=== PATIENT | male | born 1955 | race Caucasian/White ===

== ENCOUNTER 2023-11-11 08:43 | Outpatient (RCR) | payer MEDICARE, OTHER, SELFPAY | END 2023-11-11 23:59 | disposition home or self-care (01) | LOC: CRHB 08:43 | PROVIDERS: ATTENDING PHYSICIAN Internal Medicine Cardiovascular Disease | DX: I25.10 Atherosclerotic heart disease of native coronary artery without angina pectoris (principal); Z95.5 Presence of coronary angioplasty implant and graft | CPT/HCPCS: G0422; G0423 ==

== ENCOUNTER 2024-02-04 14:28 | Inpatient (IN) | payer MEDICARE, OTHER, SELFPAY ==
[2024-02-04] VITALS (14 sets, daily range): BP systolic 103–192; BP diastolic 64–120; BMI 29.4
--- NOTE | 2024-02-04 11:41 | PTCARENOTE ---
Pt given 4 ASA 81 mg po in Cardiac Services prior to being transferred to ED(documented in Cardiac Services account). Kimberly Manriquez RN
--- NOTE | 2024-02-04 11:47 | ED.GENMED ---
History of Present Illness
General
Chief Complaint: Chest Pain
Source: patient and physician (Dr. Montenegro, cardiology)
Exam Limitations: none
Time Seen by Provider: 02/04/24 11:36
Nursing documentation reviewed up to this point in time: agreed with
Travel History
Have you had any contact with someone who has COVID-19?: No
Do you have any symptoms of coronavirus? Fever > 100 degrees, chills, cough, shortness of breath, sore throat, loss of taste or smell, muscle aches, or headache?: No
History of Present Illness
History of Present Illness:
68-year-old male with chest pain during treadmill test. He was sent by Dr. Montenegro, gold leaf roller to be admitted and plan for likely cardiac catheterization.
Past History
Past History
ED Past Medical History: CAD, COPD, CVA (History of TIA), GERD, HTN, Hypercholesterolemia, NIDDM and Other (Peripheral arterial disease)
ED Past Surgical History: Cardiac (CABG 2011, PTCA with stent January 2016) and Other (Bilateral carotid stenting 2011, left carotid artery stent 2020, hernia repair, retinal tears bilaterally 2018)
Social History
Tobacco: Former smoker
Alcohol: Daily
Drug: None
Personal:
Living: with family
Employment: Retired
Family History
Family History: Other (reviewed and noncontributory)
Review of Systems
Review of Systems
Allergies reviewed?: Yes
All Other Systems: Not applicable
Constitutional: Reports no symptoms
EENT: Reports no symptoms
Respiratory: Reports no symptoms
Cardiac: Reports chest pain
ABD/GI: Reports no symptoms
: Reports no symptoms
Musculoskeletal: Reports no symptoms
Skin: Reports no symptoms
Neurological: Reports no symptoms
Endocrine: Reports no symptoms
Hematologic/Lymphatic: Reports no symptoms
Psychiatric: Reports no symptoms
Phy Exam
Physical Exam
Physical Exam:
Physical Exam
General: no apparent distress, not acutely ill
Neck: supple. no meningeal signs. normal posterior pharynx
Heart: s1/s2 regular rate and rhythm, no murmur. equal radial
pulses.
HEENT: Pupils equal round reactive to light, EOMI
Lungs: no acute respiratory distress. clear bilaterally
Abdomen: normal bowel sounds. not tender. no CVAT
Neuro: alert and oriented. no focal neurological deficits cranial nerves II through XII intact
Skin: no rash
Psychiatric: well kept. interactive and cooperative
Extremities: no edema. no calf tenderness. negative homans. good distal pulses
Scores
Heart Score for Chest Pain Patients
STEMI patient?: No
History: Highly Suspicious
ECG: Nonspecific Repolarization
Age: >/= 65 years
Risk Factors: >/= 3 Risk Factors or History of CAD
Troponin: </= Normal Limit
Heart Score for Chest Pain Patients: 7
Heart Score Risk: 72.7 % MACE over next 6 weeks
Course
Orders/Labs/Results
Orders:
Orders
02/04/24 11:31
Electrocardiogram (*1) Stat
Reason for Study: Chest Pain
02/04/24 12:10
Complete Blood Count/With Diff Urgent
Comprehensive Metabolic Panel Urgent
Prothrombin Time Urgent
Troponin I Urgent
02/04/24 12:17
PTT Urgent
Comment: Obtain baseline before beginning heparin infusion if not already collected
Heparin 4,000 units IV NOW STA
Nursing to Place Non Medication Order As Directed
Physician Order: PTT 6 hours after initial start of Heparin infusion
02/04/24 12:30
Heparin 40362 Units/250 ml 25,000 units in 250 ml IV PER PROTOCOL
Weight to be used for heparin protocol in kilograms (kg):: 95.5
Protocol:: Cardiac Tx/Acute Coronary
PTT Goal Range to be used:: PTT 73 to 111 seconds
Order type:: Initial
INITIAL Infusion Dose (UNITS/KG/hr) & then follow protocol:: 12 units/kg/hr
Infusion Dose in UNITS/hr & then follow protocol (UNITS/hr):: 1,000
INFUSION RATE in mL/hr & then follow protocol (mL/hr):: 10
PTT less than or equal to 64 seconds:: Increase rate by 200 units/hr (+ 2 mL/hr)
PTT 64.1 to 72.9 seconds:: Increase rate by 100 units/hr (+ 1 mL/hr)
PTT 73 to 111 seconds:: Target Range. No change in rate.
PTT 111.1 to 130.9 seconds:: Decrease rate by 100 units/hr (- 1 mL/hr)
PTT 131 to 199.9 seconds:: HOLD for 1 hr. Then decrease rate by 200 units/hr (- 2 mL/hr)
PTT greater than or equal to 200 seconds:: HOLD for 2 hrs & Notify Provider. Then decrease by 200 units/hr (-
2 mL/hr)
Lab follow-up:: Each change, PTT q6h until 2 consecutive are therapeutic. Then PTT
daily.
02/04/24 12:42
Add On- LAB Urgent
Tests Added?: ptt
Abnormal Lab Results
02/04/24
12:10
RBC 4.04 L 10^6/uL
(4.70-6.10)
Hgb 12.6 L g/dL
(13.0-18.0)
Hct 36.2 L %
(39.0-52.0)
MCH 31.2 H pg
(27.0-31.0)
Absolute Monos (auto) 0.8 H 10^3/uL
(0.1-0.6)
Monocytes % 10.6 H %
(1.7-9.3)
Sodium 128 L mmol/L
(135-145)
Chloride 93 L mmol/L
(98-107)
BUN 26 H mg/dl
(9-20)
Creatinine 1.7 H mg/dL
(0.7-1.3)
Glucose 175 H mg/dl
(70-99)
02/04/24 12:10
02/04/24 12:10
Vital Signs
Initial and Last Documented VS:
Initial Vital Signs
Temp Pulse Resp BP Pulse Ox
98.1 F 65 18 192/77 98
02/04/24 11:29 02/04/24 11:29 02/04/24 11:29 02/04/24 11:29 02/04/24 11:29
Last Documented Vital Signs
Temp Pulse Resp BP Pulse Ox
98.1 F 65 18 192/77 99
02/04/24 11:29 02/04/24 11:29 02/04/24 11:29 02/04/24 11:29 02/04/24 12:06
MDM/Problems Addressed
Differential Diagnosis Includes:
ACS, unstable angina
MDM/Problems Addressed:
68-year-old male with unstable angina. Aspirin 324 given by cardiology office, heparin drip. Dr. Hernandez and hospitalist aware for admission.
Chronic conditions affecting care: CAD
Acute Exacerbation and/or Progression of Chronic Illness: CAD
*Pulse Oximetry
Patient hypoxic: no
*EKG
Interpreted by ED Provider?: Yes
EKG Intrepretation Date: 02/04/24
EKG Intrepretation Time: 11:34
Interpretation: abnormal
Comparison EKG: no changes
Heart Rate: 65
Rate: normal
Rhythm: sinus
Rembrandt: left axis deviation
Interval: normal interval
QRS Pattern: normal QRS
Ischemia: non-specific ST changes
*Cot Assembler Interpretation
Rate: normal
Interpretation: normal
Heart Rate: 66
Rhythm: sinus
*Critical Care Note
Total Time (30-74mins, 75-104mins- exclusive of procedures): 30
comment:
Critical care statement: A total of 30 minutes of critical care time was provided for this patient. This includes management of unstable vital signs, evaluation of the patient at bedside, reviewing the patient's pertinent medical records, discussion
with consultants, review of old EKGs and review of pertinent medical records. This time with separate from time utilized to perform the aforementioned documented procedures
Data Reviewed
Review of Other/Old Records Reveals: Operative Reports (Cardiac catheterization 05/22/[address] Stuart, severe [place] triple-vessel CAD, stent of in-stent restenosis of mid RCA)
Source: records
Patient Management
Social determinants of health affecting care: Living situation
Discussion with other providers: Hospitalist and Treasury Specialist (Dr. Montenegro and Dr. Hernandez cardiology)
Escalation/DeEscalation of care consider admission/obs:
Admit indicated
ED Attending Note
-
Portions of this chart may have been created with voice recognition software.� Occasional wrong word or��sound alike� substitutions may have occurred due to the inherent limitations of voice recognition software.
Discharge Plan
Departure
Patient Disposition: Admit
Date of Disposition: 02/04/24
Time of Disposition: 12:38
Admit to: IVU
Presentation/result/management discussed w/ accepting MD/DO: Hospitalist
Condition: Good
Discharge Problem:
Unstable angina
Prescriptions:
No Action
pantoprazole [Protonix] 40 MG tablet,delayed release (/EC)
40 mg PO DAILY
aspirin [Bean Chewable Aspirin] 81 MG tablet,chewable
81 mg PO DAILY
fluoxetine 20 MG capsule
20 mg PO DAILY
nitroglycerin 0.4 MG tablet, sublingual
0.4 mg sublingual [id number] PRN (Reason: chest pain) Qty: 75 3RF
Jardiance 10 mg Tablet
10 mg PO DAILY Qty: 30 2RF
Hold Instructions: Resume on 05/25/23.
multivitamin Tablet
1 tab PO DAILY
isosorbide mononitrate 120 mg tablet extended release 24 hr
120 mg PO DAILY
losartan-hydrochlorothiazide 100-25 mg tablet
1 tab PO DAILY
Hold Instructions: Resume on 05/25/23.
amlodipine 10 mg tablet
10 mg PO DAILY
rosuvastatin 20 mg tablet
20 mg PO QPM
metformin 1,000 MG tablet
1,000 mg PO BID@0800,1700
Rx Instructions:
resume thursday evening
albuterol sulfate [ProAir HFA] 90 MCG/PUFF HFA aerosol inhaler
2 puff inhalation R Q6HPRN PRN (Reason: sob/wheezing)
metoprolol succinate 25 mg Tablet Extended Release 24 Hr
12.5 mg PO DAILY Qty: 30 1RF
amoxicillin 500 mg Capsule
500 mg PO TID
Patient Comments:
patient black pickler 01/30/24 for 7 days
gabapentin 600 mg Tablet
600 mg PO DAILYPRN PRN (Reason: mild pain)
sucralfate [Carafate] 1 gram Tablet
1 g PO BID
glimepiride 2 mg Tablet
2 mg PO QPM
acetaminophen 650 mg Tablet Extended Release
650 mg PO QIDPRN PRN (Reason: mild pain)
insulin glargine [Basaglar KwikPen U-100 Insulin] 100 unit/mL (3 mL) Insulin Pen
30 unit SC HS
roflumilast 500 mcg Tablet
500 mcg PO DAILY
calcium carbonate [Tums] 200 mg calcium (500 mg) Tablet,Chewable
200 mg PO BIDPRN PRN (Reason: gerd)
furosemide 40 mg tablet
40 mg PO DAILY
clopidogrel 75 MG tablet
75 mg PO DAILY
[id number]-epa-fish oil 1 EACH capsule
1 ea PO BID
Interventions
Interventions:
*Risk Screen - Suicide Last Done: 02/04/24 11:37
*General Assessment Last Done: 02/04/24 11:37
*Neglect/Abuse Screening Last Done: 02/04/24 11:37
ED- Fall Risk Assessment Last Done: 02/04/24 12:06
*ED COVID-19 Vaccine History Last Done: 02/04/24 12:06
ED- Cardiac Assessment Last Done: 02/04/24 12:06
Discharge Date and Time
Print Language: SIERRA LEONEAN
[2024-02-04 12:19] LABS: % Basophils 0.4 % (0-2); % Eosinophils 1.4 % (0-6); % Immature Granulocytes 0.3 % (0-0.5); % Lymphocytes 31.2 % (20.5-51.1); % Monocytes 10.6 % (1.7-9.3); % Neutrophils 56.1 % (42.2-75.2); Absolute Eosinophils 0.1 10^3/uL (0-0.7); Absolute Lymphocytes 2.5 10^3/uL (1.2-3.4); Absolute Monocytes 0.8 10^3/uL (0.1-0.6); Absolute Neutrophils 4.4 10^3/uL (1.4-6.5); Hematocrit 36.2 % (39.0-52.0); Hemoglobin 12.6 g/dL (13.0-18.0); Mean Corp Hgb Conc. 34.8 g/dL (33.0-37.0); Mean Corpuscular Hgb 31.2 pg (27.0-31.0); Mean Corpuscular Volume 89.6 fL (80.0-94.0); Mean Platelet Volume 9.3 fL (7.4-10.4); Nucleated Red Blood Cells % 0 % (-); Platelet Count 267 10^3/uL (130-400); Red Blood Cell Count 4.04 10^6/uL (4.70-6.10); White Blood Cell Count 7.9 10^3/uL (4.8-10.8)
[2024-02-04 12:30] LABS: INR 0.98
[2024-02-04 12:41] LABS: ALT (SGPT) 33 U/L (0-50); AST (SGOT) 31 U/L (17-59); Albumin 4.5 g/dl (3.5-5.0); Alkaline Phosphatase 71 U/L (38-126); Blood Urea Nitrogen 26 mg/dl (9-20); Calcium 9.9 mg/dl (8.4-10.2); Carbon Dioxide 24 mmol/L (22-30); Chloride 93 mmol/L (98-107); Estimated Creatinine Clearance 44 ml/min; Glucose 175 mg/dl (70-99); Potassium 3.5 mmol/L (3.5-5.1); Sodium 128 mmol/L (135-145); Total Bilirubin 0.6 mg/dl (0.2-1.3); Total Protein 7.5 g/dl (6.3-8.2); eGFR 43.37
[2024-02-04 12:43] LABS: Troponin I 0.014 ng/ml
--- NOTE | 2024-02-04 12:57 | CON.CAR ---
Consultation
Consultation Request
Date/Time Consultation Requested: 02/04/24, 1130
Date/Time Consultation Performed: 02/04/24, 12pm
Requesting Provider: Leta
Performing Provider: Moni
Reason for Consultation: chest pain
Medical History
-
Chief Complaint: chest pain
History of Present Illness:
68 year male with complex CAD, prior CABG, multiple stents, last to RCA in 04/2023 (in stent restenosis), carotid artery disease s/p bilateral stents, HTN, hyperlipidemia, DM, CKD3b presented to stress lab today. During stress test, he experienced
chest pain, worsening of baseline EKG abnormality (inferior ST depression). There was also a reversible perfusion defect in the inferior/inferolateral, worse compared to prior stress test in 2022. Chest pain persisted, so he was given ASA 324mg,
and sent to ED.
Past Medical History
Past Medical History: CAD, GERD, HTN, Hypercholesterolemia, IDDM and Renal Failure (CKD3b)
Past Surgical History: Cardiac (CABG 2011, bilateral carotid stent)
Social History
Tobacco: Former Smoker
Family History
Family History: CAD
Allergies / Home Medications
Allergy/AdvReac Type Severity Reaction Status Date / Time
hydromorphone HCl AdvReac ONLY Verified 02/04/24 11:36
[From Dilaudid] NAUSEA,
HAS HAD IT
SINCE OK
simvastatin [From Zocor] AdvReac muscle Verified 02/04/24 11:36
cramps
�Medication �Instructions �Recorded �Confirmed �Type
pantoprazole 40 mg tablet,delayed 40 mg PO DAILY GERD 09/26/14 02/04/24 History
release (Protonix)
omega-3s 600 yg-sar-epa-other 1 ea PO BID Supplement 03/10/18 02/04/24 History
[id number] oil 1,200 mg capsule
aspirin 81 mg chewable tablet 81 mg PO DAILY Blood clot 08/09/21 02/04/24 History
(Bean Chewable Low Dose Aspirin) prevention/tx
fluoxetine 20 mg capsule 20 mg PO DAILY Mental 08/09/21 02/04/24 History
Health/Anxiety
nitroglycerin 0.4 mg sublingual 0.4 mg sublingual [id number] PRN 08/09/21 02/04/24 Rx
tablet chest pain ##75
empagliflozin 10 mg tablet 10 mg PO DAILY #30 tabs 11/14/22 02/04/24 Rx
(Jardiance)
albuterol sulfate 90 mcg/actuation 2 puff inhalation R Q6HPRN PRN 05/20/23 02/04/24 History
aerosol inhaler (ProAir HFA) sob/wheezing
amlodipine 10 mg tablet 10 mg PO DAILY Blood Pressure 05/20/23 02/04/24 History
isosorbide mononitrate 120 mg 120 mg PO DAILY Heart 05/20/23 02/04/24 History
tablet,extended release 24 hr Disease/Condition
losartan 100 1 tab PO DAILY Blood Pressure 05/20/23 02/04/24 History
mg-hydrochlorothiazide 25 mg tablet
metformin 1,000 mg tablet 1,000 mg PO BID@0800,1700 Diabetes 05/20/23 02/04/24 History
multivitamin 1 tab PO DAILY Supplement 05/20/23 02/04/24 History
rosuvastatin 20 mg tablet 20 mg PO QPM High Cholesterol 05/20/23 02/04/24 History
metoprolol succinate 25 mg 12.5 mg (1/2 x 25 mg) PO DAILY 05/23/23 02/04/24 Rx
tablet,extended release 24 hr Heart disease/condition #30 tabs
acetaminophen 650 mg 650 mg PO QIDPRN PRN mild pain 02/04/24 02/04/24 History
tablet,extended release
amoxicillin 500 mg capsule 500 mg PO TID Infection 02/04/24 02/04/24 History
calcium carbonate (Tums) 200 mg PO BIDPRN PRN gerd 02/04/24 02/04/24 History
clopidogrel 75 mg tablet 75 mg PO DAILY Blood Clot 02/04/24 02/04/24 History
Prevention/Tx
furosemide 40 mg tablet 40 mg PO DAILY Fluid 02/04/24 02/04/24 History
Retention/Swelling
gabapentin 600 mg tablet 600 mg PO DAILYPRN PRN mild pain 02/04/24 02/04/24 History
glimepiride 2 mg tablet 2 mg PO QPM Diabetes 02/04/24 02/04/24 History
insulin glargine 100 unit/mL (3 30 unit SC HS Diabetes 02/04/24 02/04/24 History
mL) subcutaneous pen (Basaglar
KwikPen U-100 Insulin)
roflumilast 500 mcg tablet 500 mcg PO DAILY 02/04/24 02/04/24 History
sucralfate 1 gram tablet (Carafate) 1 g PO BID 02/04/24 02/04/24 History
Review of Systems
-
All other systems: Negative unless noted
Constitutional: Fatigue
Cardiac: Chest Pain
Physical Exam
Vital Signs
Temp Pulse Resp BP Pulse Ox
98.1 F 65 18 192/77 99
02/04/24 11:29 02/04/24 11:29 02/04/24 11:29 02/04/24 11:29 02/04/24 12:06
Lab Results
02/04/24 12:10
02/04/24 12:10
Troponin I 0.014 ng/ml 02/04/24 12:10
Physical Exam
General: Well Developed, Well Nourished and No Apparent Distress
HEENT: Normocephalic and Anicteric
Respiratory: Clear and Non Labored Respirations
Cardiac: S1/S2 (normal), Regular Rhythm, Murmur (none), Peripheral Edema (none) and JVD (none)
GI: Soft, Non Tender and Non Distended
Musculoskeletal: No Clubbing, No Cyanosis and No Edema
Skin: Warm and Dry
Neuro: AO x 3
Psych: Calm
Impression / Plan
-
68 year male with complex CAD, prior CABG, multiple stents, last to RCA in 04/2023 (in stent restenosis), carotid artery disease s/p bilateral stents, HTN, hyperlipidemia, DM, CKD3b presented to stress lab today.
During stress test, he experienced chest pain, worsening of baseline EKG abnormality (inferior ST depression). There was also a reversible perfusion defect in the inferior/inferolateral, worse compared to prior stress test in 2022. Chest pain
persisted, so he was given ASA 324mg, and sent to ED.
# Chest pain: concern for ACS/unstable angina
-in ED, 1st trop is within normal limits
-ST depression has improved on EKG
-already received ASA 324mg; continue his daily plavix 75mg daily; start heparin drip
-continue home metoprolol, imdur, statin
-discussed with interventional cardiology: plan for cath today
# Complex CAD
-plan as above
# HTN
-trend BP to determine if we need to titrate home med regimen
# Hyperlipidemia
-cont crestor
# CKD3b
-Cr 1.7 today; was 1.5 in 04/2023
-monitor post cath
# DM
-per internal medicine
Prior studies:
CATH 04/2023
CORONARY ANGIOGRAPHY
Dominance: Right
Left Main: Short with diffuse 60% stenosis throughout
LAD: 80% ostial/proximal LAD stenosis with a small saccular aneurysm distal to the lesion and spanning the takeoff of a previously stented now occluded first diagonal branch. There is 70% LAD stenosis just distal to the takeoff of D1. The
remainder of the LAD has diffuse mild disease. The vessel fills both antegrade and via a widely patent left internal mammary graft. The large first diagonal branch is occluded in the distal segment of the long stent and the distal D1 fills via
flow retrograde into the segment of sequential vein graft connecting D1 and OM3. The entire appearance of the LAD is similar to its appearance in October 2022.
Circumflex: The circumflex has an ostial stent which is patent with 30% stenosis. There is diffuse disease of small OM1, OM 2, and OM 3 branches.
RCA: The RCA is ungrafted with patent proximal and multiple patent mid stents. There is a focal 90% stenosis in the midportion of the stent in the mid RCA which was placed in December 2022. The RPDA and RPL have diffuse mild disease.
Bypass grafts:
1. The left internal mammary graft to the mid LAD is widely patent with excellent runoff
2. The vein graft to D1 and OM 3 remains occluded at its origin which was noted on the October 2022 study
CONCLUSIONS
1: Progressive and medically refractory anginal presentation
2: Systemic hypertension
3. Severe [place] triple-vessel CAD as described with patent GRIJALVA-LAD bypass graft
4. Successful stenting of 90% in-stent restenosis in mid RCA using 3.25 x 18 Xience MONI
5. Hopefully this will stabilize factor. Treatment of the proximal LAD could be considered in the future but only if he has medically refractory angina. The lesion is similar in appearance to multiple prior studies and the LAD distribution is
largely protected by the RADHA graft.
ECHO 10/2022
CONCLUSIONS
Left ventricle is mildly dilated. Low normal left ventricular systolic
function.
Left ventricular ejection fraction is 50-55% by Acuna's method of discs.
No significant valvular disease.
Data Reviewed
-
EKG: Tracing Personally Visualized and interpreted (NSR, nonspecific ST abnormality; inferior ST depression has improved)
Medical Tests (Nuc Med, Echo etc): Image Personally Visualized and interpreted (nuclear stress test today: moderate inferior/inferolateral ischemia; cath and echo per note)
Labs: Labs Reviewed by me
Old Records: Reviewed
[2024-02-04] MEDS: HEPARIN 4000 UNITS IV (13:30)
[2024-02-04] MEDS: HEPARIN 25000 UNITS/250 ML IV (13:41)
--- NOTE | 2024-02-04 14:43 | HPS.HSE ---
Addendum entered and electronically signed by Enrique De La Cruz MD 02/04/24 16:59:
Patient seen and examined
Discussed with resident
Impression:
Unstable angina
-Presented with chest pain after nuclear stress test.
� ST depressions on inferior leads.
Complex CAD with history of coronary artery bypass graft and multiple stents, last to [facility] 05/17 with in-stent stenosis.
CAD with history of bilateral carotid stents
Acute kidney injury on suspected CKD.
Hyponatremia
Conditions prior to admission:
CAD.
PAD.
Essential hypertension.
Dyslipidemia.
Chronic kidney disease stage IIIb. Baseline creatinine 1.5.
IDDM.
COPD
Plan:
Unstable angina, presents with chest pain and ST depressions with stress test.
Complex CAD status post CABG and multiple PCI's.
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
Negative for set of troponin.
Hemodynamically stable.
ST depression reversed on repeated ECG while in ED.
Received aspirin
Will continue preadmission Plavix per
Continue home metoprolol, Imdur, statin.
Initiated on IV heparin pending urgent cardiac cath
Acute kidney injury
Euvolemic on exam.
Noted mild hyponatremia.
Hold HCTZ and losartan.
Hold Lasix pending catheterization.
Continue above-mentioned antihypertensive regimen
IDDM.
Update hemoglobin A1c.
Given AGATA/CKD hold metformin.
Hold Farxiga.
Continue glipizide
COPD with no evidence of exacerbation
Continue albuterol
Recent dental work
Continue and complete course of amoxicillin.
Original Note:
Family Physician
-
Family Physician: Ismael Holt
Chief Complaint
-
Chest Pain
History of Present Illness
This is a 68-year-old male patient with PMH CAD (CABG 2011, PTCA stent 2015, bilateral carotid stent 2011, left carotid artery stent 2020), COPD, Hx of TIA, GERD, HTN, hyperlipidemia, NIDDM, PAD, and CKD 3B who presented to the ED after an abnormal
stress test. His EKG during the test showed inferior ST depression. During his stress test he started to feel sharp chest pain and was sent to be evaluated by Dr. Montenegro his slip tender. His chest pain has been ongoing for the past 1 month
intermittently that occurs randomly, he describes it as sharp pain. Pain does not radiate anywhere. He denies any other symptoms of shortness of breath, dizziness, abdominal pain or headaches. He says he drinks daily up to 2-3 beers a day or he
states 'depends on the week'. He is a former smoker who quit 10 years ago. He also states that he had prior history of TIA during a carotid artery stent placement but does not remember which side.
He had a tooth extraction done on Thursday which he has been taking Amoxicillin since 01/29 for a 7 day course.
Medical History
Past Medical History
Past Medical History: Reports CAD, CHF, COPD, GERD, HTN, Hypercholesterolemia and NIDDM
Additional Past Medical History:
CKD 3B, Hx of TIA, PAD
Past Surgical History: Reports Other
Additional Past Surgical History:
Cardiac (CABG 2011, PTCA with stent January 2016) and Other (Bilateral carotid stenting 2011, left carotid artery stent 2020, hernia repair, retinal tears bilaterally 2018)
Social History
Tobacco: Former Smoker (quit 10 years ago)
Alcohol: Daily (sometimes daily 2-3 beers/day, sometimes drinks 3-4x in a week.)
Personal:
Living: With Family
Employment: Retired
Family History
Family History: Not pertinent and Other ((reviewed and noncontributory))
Allergies / Home Medications
Allergies reflects when Allergies were last updated in [employer].
Home Medications with original date entered in [employer]
Home Medications
�Medication �Instructions �Recorded
pantoprazole 40 mg tablet,delayed 40 mg PO DAILY GERD 09/26/14
release (Protonix)
omega-3s 600 uw-qks-shl-other 1 ea PO BID Supplement 03/10/18
fgpzs3v-vvnn oil 1,200 mg capsule
aspirin 81 mg chewable tablet 81 mg PO DAILY Blood clot 08/09/21
(Bean Chewable Low Dose Aspirin) prevention/tx
fluoxetine 20 mg capsule 20 mg PO DAILY Mental 08/09/21
Health/Anxiety
nitroglycerin 0.4 mg sublingual 0.4 mg sublingual [id number] PRN 08/09/21
tablet chest pain ##75
empagliflozin 10 mg tablet 10 mg PO DAILY #30 tabs 11/14/22
(Jardiance)
albuterol sulfate 90 mcg/actuation 2 puff inhalation R Q6HPRN PRN 05/20/23
aerosol inhaler (ProAir HFA) sob/wheezing
amlodipine 10 mg tablet 10 mg PO DAILY Blood Pressure 05/20/23
isosorbide mononitrate 120 mg 120 mg PO DAILY Heart 05/20/23
tablet,extended release 24 hr Disease/Condition
losartan 100 1 tab PO DAILY Blood Pressure 05/20/23
mg-hydrochlorothiazide 25 mg tablet
metformin 1,000 mg tablet 1,000 mg PO BID@0800,1700 Diabetes 05/20/23
multivitamin 1 tab PO DAILY Supplement 05/20/23
rosuvastatin 20 mg tablet 20 mg PO QPM High Cholesterol 05/20/23
metoprolol succinate 25 mg 12.5 mg (1/2 x 25 mg) PO DAILY 05/23/23
tablet,extended release 24 hr Heart disease/condition #30 tabs
acetaminophen 650 mg 650 mg PO QIDPRN PRN mild pain 02/04/24
tablet,extended release
amoxicillin 500 mg capsule 500 mg PO TID Infection 02/04/24
calcium carbonate (Tums) 200 mg PO BIDPRN PRN gerd 02/04/24
clopidogrel 75 mg tablet 75 mg PO DAILY Blood Clot 02/04/24
Prevention/Tx
furosemide 40 mg tablet 40 mg PO DAILY Fluid 02/04/24
Retention/Swelling
gabapentin 600 mg tablet 600 mg PO DAILYPRN PRN mild pain 02/04/24
glimepiride 2 mg tablet 2 mg PO QPM Diabetes 02/04/24
insulin glargine 100 unit/mL (3 30 unit SC HS Diabetes 02/04/24
mL) subcutaneous pen (Basaglar
KwikPen U-100 Insulin)
roflumilast 500 mcg tablet 500 mcg PO DAILY 02/04/24
sucralfate 1 gram tablet (Carafate) 1 g PO BID 02/04/24
Allergy/Medication List:
Patient Allergies
Allergy/AdvReac Type Severity Reaction Status Date / Time
hydromorphone HCl AdvReac ONLY Verified 02/04/24 11:36
[From Dilaudid] NAUSEA,
HAS HAD IT
SINCE OK
simvastatin [From Zocor] AdvReac muscle Verified 02/04/24 11:36
cramps
Review of Systems
-
History Source: Patient
A 12 point ROS was completed and negative except as noted: Yes
Cardiac: Reports Chest Pain
Physical Exam
Vital Signs
Vital Signs
Temp Pulse Resp BP Pulse Ox
98.1 F 65 18 192/77 99
02/04/24 11:29 02/04/24 11:29 02/04/24 11:29 02/04/24 11:29 02/04/24 12:06
Physical Exam
General: No Apparent Distress
HEENT: NormoCephalic
Respiratory: Clear
Cardiac: S1/S2 and Regular Rhythm; No Murmur
GI: Soft, Non Tender and Non Distended
Musculoskeletal: No Edema
Neuro: Awake, Alert and Oriented
Psych: Intact Judgment/Insight
Laboratory Results
-
02/04/24 12:10
02/04/24 12:10
Laboratory Results
PT 13.0 Sec (11.4-14.6) 02/04/24 12:10
INR 0.98 02/04/24 12:10
APTT Cancelled 02/04/24 12:17
Total Bilirubin 0.6 mg/dl (0.2-1.3) 02/04/24 12:10
AST 31 U/L (17-59) 02/04/24 12:10
ALT 33 U/L (0-50) 02/04/24 12:10
Alkaline Phosphatase 71 U/L (38-126) 02/04/24 12:10
Troponin I 0.014 ng/ml 02/04/24 12:10
Impression/Plan
-
IMPRESSION:
This is a 68-year-old male patient with PMH CAD (CABG 2011, PTCA stent 2015, bilateral carotid stent 2011, left carotid artery stent 2020), COPD, Hx of TIA, GERD, HTN, hyperlipidemia, NIDDM, PAD, and CKD 3B who presented to the ED after an abnormal
stress test and chest pain.
PLAN:
#Unstable Angina
-Abnormal stress test in AM, Prior EKG done this AM before admit showed inferior ST depression
-Trop WNL (0.014)
-Heparin drip started, planned for cardiac cath today by .
-continue his daily plavix and ASA
#CKD3b
-Cr 1.7 today, his baseline is around 1.4
-hold metformin, losartan-hydrochlorthiazide due to his increased creatine and upcoming card cath
-hold furosemide
-monitor bmp,s.cr after cardiac cath
#CAD/HTN/PAD/Hx of TIA
-CABG 2011, PTCA stent 2015, bilateral carotid stent 2011, left carotid artery stent 2020
-continue metoprolol, ASA, plavix
-continue amlodipine
-hold losartan-hydrochlorothiazide
#NIDDM
-glucose 175
-hold metformin
-continue jardiance, glimepiride
-continue insulin glargine
-started on low ISS
#Hyponatremia
-euvolemic
-Na 128
-hold furosemide
-monitor bmp in AM
#Anxiety
-continue Fluoxetine
#COPD
-continue Romiflast
#GERD
-continue pantoprozole
#Hyperlipidemia
-continue atoravastin
DVT: heparin drip
Full Code
--- NOTE | 2024-02-04 18:03 | ITS.CL.CATH ---
[employer] - Catheterization
Cardiac Catheterization
Procedure Report:
CARDIAC CATHETERIZATION REPORT
Date of Procedure: 02/04/2024
Referring: Alirio Montenegro MD, PhD
Indication: Unstable angina
HEMODYNAMIC DATA
AO:
LV:
LEFT VENTRICULOGRAPHY: Normal ventricular wall motion with EF 53%
CORONARY ANGIOGRAPHY
Dominance: Right
Left Main: Diffuse 50-60% stenosis throughout
LAD: 80-90% ostial/proximal LAD stenosis with a small saccular aneurysm distal to the lesion and spanning the takeoff of the previously stented diagonal branch. The remainder of the LAD has diffuse mild disease. There is a patent GRIJALVA touchdown
into the mid LAD with good distal runoff and backfilling to supply a medium sized second diagonal branch.
Circumflex: The circumflex has 40% stenosis within the ostial/proximal stent. OM1 is small with diffuse disease. OM 2 is small to medium size branch with diffuse disease. OM 3 has severe ostial stenosis and is a 1.0 mm vessel throughout its
course. The distal limb of the sequential vein graft from D1 to OM 3 is patent and there is now flow from OM 3 to the small distal D1. This was noted on the prior study at which time the proximal segment of the vein graft from the aorta to D1 was
found to be occluded. The overall appearance of the circumflex system is similar to the prior study from April 2023.
RCA: Dominant vessel with multiple stents (including multiple layers of stent) in the mid vessel. There is mild restenosis approximating 40% severity in the most recently treated segment. There remains mild luminal disease in the PDA and
posterolateral branch.
Bypass grafts:
1. The left internal mammary graft to the LAD remains widely patent with good runoff
2. The sequential SVG to D1 and OM 3 was noted to be occluded previously at the aorto ostial takeoff. The segment connecting D1 to OM 3 remains patent and the flow was now reversed from OM 3 through the graft to the distal segment of D1. Both of
these picayune vessels (OM 3 and D1) are extremely small caliber and diffusely diseased. The angiographic appearance of this graft segment is unchanged compared with the April 2023 angiogram
Renal angiography: Selective renal angiography demonstrates no significant stenosis to the left renal artery, 30% proximal (not ostial) stenosis in the main right renal artery, and possible ostial disease in a small accessory lower pole right renal
artery.
Closure Device: 6 Indonesian Angio-Seal LFA
Radiation (mGy): 423
DAP (cm2.Gy): 44.6
Fluoroscopy time: 5.5 minutes
CONCLUSIONS
1: Systemic hypertension
2: Elevated LVEDP
3. Severe picayune multivessel CAD as described above with patent GRIJALVA-LAD and patent segment of SVG connecting OM 3 and D1. The mid RCA with multiple layers of stent is patent with mild restenosis
4. No evidence of significant renal artery stenosis
5. Continue medical therapy for angina/CAD
Copy to: Shyam Stuart MD, Ismael Holt DO, Yasmin Delgado MD
Shyam Stuart MD, FACC, [facility]
--- NOTE | 2024-02-04 18:35 | PTCARENOTE ---
Received the patient from the labourers in his bed. The patient is aaox3, vss. Sinus radha with a prolong Qt, 0.48, is noted on the monitor. His left groin dressing is c/d/i. I instructed the patient on his activity restrictions and expected oob
time. His is at the bedside and his call catalan is within reach.
[2024-02-04 18:41] LABS: Glucose - Point of Care 68 mg/dl (70-99)
[2024-02-04] MEDS: NORVASC 10 MG PO (18:42)
[2024-02-04] MEDS: AMARYL 2 MG PO (18:42)
[2024-02-04 19:04] LABS: Glucose - Point of Care 71 mg/dl (70-99)
[2024-02-04] MEDS: APRESOLINE 25 MG PO (19:51)
[2024-02-04] MEDS: CRESTOR 20 MG PO (19:51)
[2024-02-04] MEDS: CARAFATE 1 GRAM PO (19:51)
--- NOTE | 2024-02-04 20:00 | PTCARENOTE ---
report received from previous RN, walking rounds done. pt laying flat in bed, AAOx4. pt denies any pain. VSS. SR/SB on monitor, HR 50's-60's. left groin site CDI with no evidence of bleeding or hematoma. B/L DP pulses palpable. POX 99% on room air.
PIV intact and patent. see worklist for full assessment, VS, and interventions. pt resting comfortably.
[2024-02-04] MEDS: PROTONIX 40 MG PO (20:59)
[2024-02-04] MEDS: AMOXIL 500 MG PO (21:00)
[2024-02-05 00:24] LABS: Glucose - Point of Care 220 mg/dl (70-99)
[2024-02-05] MEDS: LANTUS 0.299999999999999989 UNITS SC (00:24)
[2024-02-05 04:36] VITALS: BP 128/79
--- NOTE | 2024-02-05 04:40 | PTCARENOTE ---
no changes in assessment overnight, pt VSS. AAOx4. SR 60's. left groin site stable, CDI. POX 98-99% on room air. AM labs drawn and sent. pt sleeping between care.
[2024-02-05 04:53] LABS: % Basophils 0.6 % (0-2); % Eosinophils 2.8 % (0-6); % Immature Granulocytes 0.2 % (0-0.5); % Lymphocytes 31.6 % (20.5-51.1); % Monocytes 9.7 % (1.7-9.3); % Neutrophils 55.1 % (42.2-75.2); Absolute Eosinophils 0.2 10^3/uL (0-0.7); Absolute Monocytes 0.6 10^3/uL (0.1-0.6); Absolute Neutrophils 3.5 10^3/uL (1.4-6.5); Hematocrit 38.4 % (39.0-52.0); Mean Corp Hgb Conc. 33.9 g/dL (33.0-37.0); Mean Corpuscular Volume 91.6 fL (80.0-94.0); Mean Platelet Volume 9.4 fL (7.4-10.4); Nucleated Red Blood Cells % 0 % (-); Platelet Count 251 10^3/uL (130-400); Red Blood Cell Count 4.19 10^6/uL (4.70-6.10); Red Cell Dist. Width 12.9 % (11.5-14.5); White Blood Cell Count 6.4 10^3/uL (4.8-10.8)
[2024-02-05 05:18] LABS: Troponin I 0.027 ng/ml
[2024-02-05 05:24] LABS: Blood Urea Nitrogen 23 mg/dl (9-20); Calcium 10.1 mg/dl (8.4-10.2); Carbon Dioxide 28 mmol/L (22-30); Chloride 100 mmol/L (98-107); Estimated Creatinine Clearance 58 ml/min; Glucose 146 mg/dl (70-99); Potassium 3.5 mmol/L (3.5-5.1); Sodium 134 mmol/L (135-145); eGFR 59.84
--- NOTE | 2024-02-05 08:07 | W.PN.CD ---
Today's Communication / Plan
-
Increase metop to 25 mg
Stop hydralazine on d/c
Cont other home BP meds
Impression / Plan
-
68 year male with complex CAD, prior CABG, multiple stents, last to RCA in 04/2023 (in stent restenosis), carotid artery disease s/p bilateral stents, HTN, hyperlipidemia, DM, CKD3b presented to stress lab today.
During stress test, he experienced chest pain, worsening of baseline EKG abnormality (inferior ST depression). There was also a reversible perfusion defect in the inferior/inferolateral, worse compared to prior stress test in 2022. Chest pain
persisted, so he was given ASA 324mg, and sent to ED.
# Chest pain and complex CAD: cath Stable
-cont aspirin and plavix
-continue home metoprolol, imdur, statin
- increase metoprolol to 25 mg
# Complex CAD
-plan as above
# HTN
-Continue home BP meds
- Stop hydralazine on d/c
- increase metop to 25 mg
# Hyperlipidemia
-cont crestor
# CKD3b
-02/04 AGATA resolved 1.3 02/04
-monitor post cath
# DM
-per internal medicine
Prior studies:
CATH 04/2023
CORONARY ANGIOGRAPHY
Dominance: Right
Left Main: Short with diffuse 60% stenosis throughout
LAD: 80% ostial/proximal LAD stenosis with a small saccular aneurysm distal to the lesion and spanning the takeoff of a previously stented now occluded first diagonal branch. There is 70% LAD stenosis just distal to the takeoff of D1. The
remainder of the LAD has diffuse mild disease. The vessel fills both antegrade and via a widely patent left internal mammary graft. The large first diagonal branch is occluded in the distal segment of the long stent and the distal D1 fills via
flow retrograde into the segment of sequential vein graft connecting D1 and OM3. The entire appearance of the LAD is similar to its appearance in October 2022.
Circumflex: The circumflex has an ostial stent which is patent with 30% stenosis. There is diffuse disease of small OM1, OM 2, and OM 3 branches.
RCA: The RCA is ungrafted with patent proximal and multiple patent mid stents. There is a focal 90% stenosis in the midportion of the stent in the mid RCA which was placed in December 2022. The RPDA and RPL have diffuse mild disease.
Bypass grafts:
1. The left internal mammary graft to the mid LAD is widely patent with excellent runoff
2. The vein graft to D1 and OM 3 remains occluded at its origin which was noted on the October 2022 study
CONCLUSIONS
1: Progressive and medically refractory anginal presentation
2: Systemic hypertension
3. Severe [place] triple-vessel CAD as described with patent GRIJALVA-LAD bypass graft
4. Successful stenting of 90% in-stent restenosis in mid RCA using 3.25 x 18 Xience MONI
5. Hopefully this will stabilize factor. Treatment of the proximal LAD could be considered in the future but only if he has medically refractory angina. The lesion is similar in appearance to multiple prior studies and the LAD distribution is
largely protected by the RADHA graft.
ECHO 10/2022
CONCLUSIONS
Left ventricle is mildly dilated. Low normal left ventricular systolic
function.
Left ventricular ejection fraction is 50-55% by Acuna's method of discs.
No significant valvular disease.
Physical Exam
Vital Signs/Labs
Vital Signs
Temp Pulse Resp BP Pulse Ox
98.1 F 65 20 128/79 99
02/05/24 04:36 02/05/24 04:36 02/05/24 04:36 02/05/24 04:36 02/05/24 04:36
02/04/24 02/05/24 02/06/24
06:59 06:59 06:59
Actual Weight 210 lb 8.663 oz
02/05/24 04:44
02/05/24 04:44
PT 13.0 Sec (11.4-14.6) 02/04/24 12:10
INR 0.98 02/04/24 12:10
APTT Cancelled 02/04/24 19:45
LAB Results
02/04/24 02/05/24
12:10 04:44
Troponin I 0.014 0.027
Physical Exam
Constitutional: No acute distress
Cardiovascular: Rhythm & rate is regular and Pedal edema is absent
Respiratory: Respiratory effort normal and Lungs clear to auscul.
GI: Soft
Neuro/Psych: AO x 3
Other: Cath Site (c/d/i no hematoma )
Data Reviewed
-
Date of Service: February 05, 2024
Medical Decision Making: Reviewed Test Results (cath stable disease )
EKG: Tracing Personally Visualized and interpreted (NSR)
Echo: Report Reviewed by me
Labs: Labs Reviewed by me
[2024-02-05 08:10] VITALS: BP 156/73
[2024-02-05] MEDS: AMOXIL 500 MG PO (08:11)
[2024-02-05] MEDS: APRESOLINE 25 MG PO (08:11)
[2024-02-05] MEDS: IMDUR (EXTENDED RELEASE) 120 MG PO (08:11)
[2024-02-05] MEDS: PROTONIX 40 MG PO (08:11)
[2024-02-05 08:12] LABS: Glucose - Point of Care 111 mg/dl (70-99)
[2024-02-05] MEDS: PROZAC 20 MG PO (08:12)
[2024-02-05] MEDS: DALIRESP 500 MCG PO (08:12)
[2024-02-05] MEDS: NORVASC 10 MG PO (08:12)
[2024-02-05] MEDS: THERAGRAN 1 TABLET PO (08:12)
[2024-02-05] MEDS: TOPROL XL 12.5 MG PO (08:12)
[2024-02-05] MEDS: PLAVIX 75 MG PO (08:12)
[2024-02-05] MEDS: LOW STRENGTH ASPIRIN 81 MG PO (08:12)
[2024-02-05] MEDS: CARAFATE 1 GRAM PO (08:12)
[2024-02-05 09:58] LABS: Glycohemoglobin (HgbA1c) 6.6 % (4.0-5.6)
--- NOTE | 2024-02-05 11:09 | W.DS.TRANS ---
DC Summary - Toxicology Supervisor
-
Discharge Instructions:
Discharge Diagnosis/Procedures Cardiac cath
Diet Low Cholesterol
Driving Restrictions No driving for 24 hours
Instructions:
Stand-Alone Forms: DC Instructions- Cath/EP Lab
Changes to Home Medications: Yes
Discharge Medications:
DC Medications w/original date entered in [employer]
pantoprazole 40 mg tablet,delayed release (Protonix) 40 mg PO DAILY GERD 09/26/14
omega-3s 600 ub-fre-jlt-other noleq4e-yrok oil 1,200 mg capsule 1 ea PO BID Supplement 03/10/18
aspirin 81 mg chewable tablet (Bean Chewable Low Dose Aspirin) 81 mg PO DAILY Blood clot prevention/tx 08/09/21
fluoxetine 20 mg capsule 20 mg PO DAILY Mental Health/Anxiety 08/09/21
nitroglycerin 0.4 mg sublingual tablet 0.4 mg sublingual [id number] PRN chest pain ##75 08/09/21
empagliflozin 10 mg tablet (Jardiance) 10 mg PO DAILY #30 tabs 11/14/22
albuterol sulfate 90 mcg/actuation aerosol inhaler (ProAir HFA) 2 puff inhalation R Q6HPRN PRN sob/wheezing 05/20/23
amlodipine 10 mg tablet 10 mg PO DAILY Blood Pressure 05/20/23
isosorbide mononitrate 120 mg tablet,extended release 24 hr 120 mg PO DAILY Heart Disease/Condition 05/20/23
losartan 100 mg-hydrochlorothiazide 25 mg tablet 1 tab PO DAILY Blood Pressure 05/20/23
metformin 1,000 mg tablet 1,000 mg PO BID@0800,1700 Diabetes 05/20/23
multivitamin 1 tab PO DAILY Supplement 05/20/23
rosuvastatin 20 mg tablet 20 mg PO QPM High Cholesterol 05/20/23
metoprolol succinate 25 mg tablet,extended release 24 hr 12.5 mg (1/2 x 25 mg) PO DAILY Heart disease/condition #30 tabs 05/23/23
acetaminophen 650 mg tablet,extended release 650 mg PO QIDPRN PRN mild pain 02/04/24
amoxicillin 500 mg capsule 500 mg PO TID Infection 02/04/24
calcium carbonate (Tums) 200 mg PO BIDPRN PRN gerd 02/04/24
clopidogrel 75 mg tablet 75 mg PO DAILY Blood Clot Prevention/Tx 02/04/24
furosemide 40 mg tablet 40 mg PO DAILY Fluid Retention/Swelling 02/04/24
gabapentin 600 mg tablet 600 mg PO DAILYPRN PRN mild pain 02/04/24
glimepiride 2 mg tablet 2 mg PO QPM Diabetes 02/04/24
insulin glargine 100 unit/mL (3 mL) subcutaneous pen (Basaglar KwikPen U-100 Insulin) 30 unit SC HS Diabetes 02/04/24
roflumilast 500 mcg tablet 500 mcg PO DAILY Lung/Breathing Issues 02/04/24
sucralfate 1 gram tablet (Carafate) 1 g PO BID Gastrointestinal Issue 02/04/24
Home Medication Changes
Metoprolol 25mg PO daily
Losartan 100mg PO daily
Hold Metformin and restart on 02/08/24
Pending Results: No
--- NOTE | 2024-02-05 11:10 | W.DCSUMMARY ---
Documented by User: Brittney Greene, Resident, 02/05/24 13:09
Discharge Summary
Discharge Data
Date of Admission: 02/04/24
Date of Discharge: 02/05/24
-
Pending Results: No
Hospital Course
This is a 68-year-old male patient with PMH CAD (CABG 2011, PTCA stent 2015, bilateral carotid stent 2011, left carotid artery stent 2020), COPD, Hx of TIA, GERD, HTN, hyperlipidemia, NIDDM, PAD, and CKD 3B who presented to the ED after an abnormal
stress test. His EKG during the stress test showed inferior ST depression. ST depression reversed on repeated ECG while in ED. Initiated on IV heparin for pending urgent cardiac cath. He was euvolemic on exam but noted to have mild hyponatremia of
128. Given his AAGTA/CKD and cardiac cath, held metformin, HCTZ/losartan and dapagliflozin. Cardiac cath done by : Elevated LVEDP,Severe [place] multivessel CAD. Metoprolol was increased to 25mg. Discontinued hctz-losartan tab.
Discharge patient to home with metoprolol increase, hold metformin and restart on 02/07 and start losartan 100mg. He will follow up with cardiology and script given to patient to get BMP in 2 weeks.
Discharge Plan
-
Patient Disposition: Home (Routine Discharge)
Discharge Diagnosis/Procedures: Cardiac Cath
Diet: Low Cholesterol
Driving Restrictions: No driving for 24 hours
Stand Alone Forms: DC Instructions- Cath/EP Lab
Referrals:
Ismael Holt I., DO [Family Provider] -
Shyam Stuart MD [Active] - 04/11/24 9:40 am
Prescriptions:
New
metoprolol succinate 25 mg Tablet Extended Release 24 Hr
25 mg PO DAILY Qty: 30 0RF
losartan 100 mg tablet
100 mg PO DAILY Qty: 30 0RF
Continued
pantoprazole [Protonix] 40 MG tablet,delayed release (DR/EC)
40 mg PO DAILY
aspirin [Bean Chewable Aspirin] 81 MG tablet,chewable
81 mg PO DAILY
fluoxetine 20 MG capsule
20 mg PO DAILY
nitroglycerin 0.4 MG tablet, sublingual
0.4 mg sublingual [id number] PRN (Reason: chest pain) Qty: 75 3RF
Jardiance 10 mg Tablet
10 mg PO DAILY Qty: 30 2RF
Hold Instructions: Resume on 05/25/23.
multivitamin Tablet
1 tab PO DAILY
isosorbide mononitrate 120 mg tablet extended release 24 hr
120 mg PO DAILY
amlodipine 10 mg tablet
10 mg PO DAILY
rosuvastatin 20 mg tablet
20 mg PO QPM
albuterol sulfate [ProAir HFA] 90 MCG/PUFF HFA aerosol inhaler
2 puff inhalation R Q6HPRN PRN (Reason: sob/wheezing)
amoxicillin 500 mg Capsule
500 mg PO TID
Patient Comments:
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
gabapentin 600 mg Tablet
600 mg PO DAILYPRN PRN (Reason: mild pain)
sucralfate [Carafate] 1 gram Tablet
1 g PO BID
glimepiride 2 mg Tablet
2 mg PO QPM
acetaminophen 650 mg Tablet Extended Release
650 mg PO QIDPRN PRN (Reason: mild pain)
insulin glargine [Basaglar KwikPen U-100 Insulin] 100 unit/mL (3 mL) Insulin Pen
30 unit SC HS
roflumilast 500 mcg Tablet
500 mcg PO DAILY
calcium carbonate [Tums] 200 mg calcium (500 mg) Tablet,Chewable
200 mg PO BIDPRN PRN (Reason: gerd)
furosemide 40 mg tablet
40 mg PO DAILY
clopidogrel 75 MG tablet
75 mg PO DAILY
dootl-3l-vwk-epa-fish oil 1 EACH capsule
1 ea PO BID
Held
metformin 1,000 MG tablet
1,000 mg PO BID@0800,1700
Hold Instructions: Resume on 02/08/24.
Rx Instructions:
resume thursday evening
Discontinued
losartan-hydrochlorothiazide 100-25 mg tablet
1 tab PO DAILY
Hold Instructions: Resume on 05/25/23.
metoprolol succinate 25 mg Tablet Extended Release 24 Hr
12.5 mg PO DAILY Qty: 30 1RF
Discharge Orders:
Discharge Patient (As Directed); Ordered 02/05/24
Ordered By: Brittney Greene
Care Plan Goals
Care Plan Goals:
Problem: Readiness for enhanced knowledge related to diagnosis and treatment plan
Goal: Understand your diagnosis and treatment plan needs, including medications if applicable.
Instructions: Know your diagnosis, underlying causes and treatment plan options, including medications if applicable. Consult with your health care team to learn about your diagnosis and treatment plan, including medications if applicable.
Discharge Date and Time
Discharge Date/Time: 02/05/24 14:01
Print Language: KOREAN

Documented by User: Enrique De La Cruz MD 02/05/24 14:55
Discharge Summary
Discharge Data
Date of Admission: 02/04/24
Date of Discharge: 02/05/24
Discharge Plan
-
Patient Disposition: Home (Routine Discharge)
Discharge Diagnosis/Procedures: Cardiac Cath
Diet: Low Cholesterol
Driving Restrictions: No driving for 24 hours
Stand Alone Forms: DC Instructions- Cath/EP Lab
Referrals:
Ismael Holt I., DO [Family Provider] -
Shyam Stuart MD [Active] - 04/11/24 9:40 am
Prescriptions:
New
metoprolol succinate 25 mg Tablet Extended Release 24 Hr
25 mg PO DAILY Qty: 30 0RF
losartan 100 mg tablet
100 mg PO DAILY Qty: 30 0RF
Continued
pantoprazole [Protonix] 40 MG tablet,delayed release (DR/EC)
40 mg PO DAILY
aspirin [Bean Chewable Aspirin] 81 MG tablet,chewable
81 mg PO DAILY
fluoxetine 20 MG capsule
20 mg PO DAILY
nitroglycerin 0.4 MG tablet, sublingual
0.4 mg sublingual [id number] PRN (Reason: chest pain) Qty: 75 3RF
Jardiance 10 mg Tablet
10 mg PO DAILY Qty: 30 2RF
Hold Instructions: Resume on 05/25/23.
multivitamin Tablet
1 tab PO DAILY
isosorbide mononitrate 120 mg tablet extended release 24 hr
120 mg PO DAILY
amlodipine 10 mg tablet
10 mg PO DAILY
rosuvastatin 20 mg tablet
20 mg PO QPM
albuterol sulfate [ProAir HFA] 90 MCG/PUFF HFA aerosol inhaler
2 puff inhalation R Q6HPRN PRN (Reason: sob/wheezing)
amoxicillin 500 mg Capsule
500 mg PO TID
Patient Comments:
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
gabapentin 600 mg Tablet
600 mg PO DAILYPRN PRN (Reason: mild pain)
sucralfate [Carafate] 1 gram Tablet
1 g PO BID
glimepiride 2 mg Tablet
2 mg PO QPM
acetaminophen 650 mg Tablet Extended Release
650 mg PO QIDPRN PRN (Reason: mild pain)
insulin glargine [Basaglar KwikPen U-100 Insulin] 100 unit/mL (3 mL) Insulin Pen
30 unit SC HS
roflumilast 500 mcg Tablet
500 mcg PO DAILY
calcium carbonate [Tums] 200 mg calcium (500 mg) Tablet,Chewable
200 mg PO BIDPRN PRN (Reason: gerd)
furosemide 40 mg tablet
40 mg PO DAILY
clopidogrel 75 MG tablet
75 mg PO DAILY
ztljb-2h-ufz-epa-fish oil 1 EACH capsule
1 ea PO BID
Held
metformin 1,000 MG tablet
1,000 mg PO BID@0800,1700
Hold Instructions: Resume on 02/08/24.
Rx Instructions:
resume thursday evening
Discontinued
losartan-hydrochlorothiazide 100-25 mg tablet
1 tab PO DAILY
Hold Instructions: Resume on 05/25/23.
metoprolol succinate 25 mg Tablet Extended Release 24 Hr
12.5 mg PO DAILY Qty: 30 1RF
Discharge Orders:
Discharge Patient (As Directed); Ordered 02/05/24
Ordered By: Brittney Greene
Care Plan Goals
Care Plan Goals:
Problem: Readiness for enhanced knowledge related to diagnosis and treatment plan
Goal: Understand your diagnosis and treatment plan needs, including medications if applicable.
Instructions: Know your diagnosis, underlying causes and treatment plan options, including medications if applicable. Consult with your health care team to learn about your diagnosis and treatment plan, including medications if applicable.
Discharge Date and Time
Discharge Date/Time: 02/05/24 14:01
Print Language: KOREAN
--- NOTE | 2024-02-05 11:57 | CM ---
CM following for DC planning needs.
Met w/ patient at bedside to complete initial assessment.
Pt. resides in a private, split level home w/ spouse.
Functionally, patient is indep. w/ ADLs, mobility without the use of any assisted device.
Pt. has CPAP machine at home, which he uses regularly.
Pt. has Rx plan and uses [facility] in [place] for Rx needs.
DC plan is for home, no needs.
Will remain avail.
--- NOTE | 2024-02-05 12:44 | W.PN.HOSP.TC ---
Addendum entered and electronically signed by Enrique De La Cruz MD 02/05/24 14:59:
Patient seen and examined
Discussed with resident
Discussed with cardiology
Impression/plan:
Complex CAD with unstable angina presentation
Urgent C noted
Overall impression likely chronic ischemia with no evidence of myocardial injury.
Plan is to optimize medical regimen.
Continue Plavix and statin
Increase dose of beta-malorie.
Continue losartan
Continue oral diuresis with Lasix with discontinuation of HCTZ.
Continue preadmission diabetic regimen with plan to hold metformin for another 48 hours after contrast exposure.
Follow-up BMP as outpatient.
Original Note:
Today's Communication/Plan
-
Discharge planned for today; hold metformin until 02/07, start metoprolol 25mg, start losartan 100mg
Assessment / Plan
Assessment / Plan
IMPRESSION:
This is a 68-year-old male patient with PMH CAD (CABG 2011, PTCA stent 2015, bilateral carotid stent 2011, left carotid artery stent 2020), COPD, Hx of TIA, GERD, HTN, hyperlipidemia, NIDDM, PAD, and CKD 3B who presented to the ED after an abnormal
stress test and chest pain.
PLAN:
#Unstable Angina
-Abnormal stress test in AM, Prior EKG done this AM before admit showed inferior ST depression
-Trop WNL (0.014) on 02/03
-Cardiac cath done by
-patient will f/u with outpatient cardiology
-continue his daily plavix and ASA
-Metoprolol increased to 25mg by cards
-discontinued losartan-hctz and started losartan 100mg
-plan for discharge today
#CKD3b
-Cr 1.7 today, his baseline is around 1.4
-hold metformin, losartan-hydrochlorthiazide due to his increased creatine and upcoming card cath
-hold furosemide
-monitor bmp,s.cr after cardiac cath
#CAD/HTN/PAD/Hx of TIA
-CABG 2011, PTCA stent 2015, bilateral carotid stent 2011, left carotid artery stent 2020
-continue metoprolol, ASA, plavix
-continue amlodipine
-hold losartan-hydrochlorothiazide
#NIDDM
-glucose 175
-hold metformin, and restart on 02/07
-continue jardiance, glimepiride
-continue insulin glargine
-continue low ISS
#Hyponatremia
-euvolemic
-Na 134 today, improved
-continue furosemide upon discharge
#Anxiety
-continue Fluoxetine
#COPD
-continue Romiflast
#GERD
-continue pantoprozole
#Hyperlipidemia
-continue atoravastin
DVT: heparin drip
Full Code
Anticipated Discharge: Today
Subjective/Interval History
-
Date of Service: February 05, 2024
Objective Data
-
Labs:
Laboratory Results
02/05/24
04:44
WBC 6.4
Hgb 13.0
Hct 38.4 L
Plt Count 251
Sodium 134 L
Potassium 3.5
Chloride 100
Carbon Dioxide 28
BUN 23 H
Creatinine 1.3
Glucose 146 H
Calcium 10.1
Vital Signs:
Vital Signs
Temp Pulse Resp BP Pulse Ox
98.6 F 96 20 156/73 97
02/05/24 11:29 02/05/24 11:56 02/05/24 11:56 02/05/24 08:11 02/05/24 11:56
I&O
02/04/24 02/05/24 02/06/24
06:59 06:59 06:59
Intake Total 250 / 250
Balance 250 / 250
Review of Systems
-
History Source: Patient
All other systems: Reviewed and negative
Physical Exam
-
General: No Apparent Distress
HEENT: Moist Mucous Membranes
Respiratory: Clear to Auscultation
Cardiac: Regular Rhythm and S1/S2; Negative Murmur or Rub
GI: Soft, Nontender and Nondistended
Musculoskeletal: No Edema and Other (No cath access site problems)
Neuro: Awake, Alert, Oriented, No Motor Deficits and Nonfocal/Grossly Intact
== END 2024-02-05 14:01 | disposition home or self-care (01) | DRG 322 ==
LOC: IVU 14:28
PROVIDERS: Internal Medicine Cardiovascular Disease; Nurse Practitioner Adult Health; Student in an Organized Health Care Education/Training Program; ADMITTING PHYSICIAN Internal Medicine; EMERGENCY PHYSICIAN Emergency Medicine; FAMILY PHYSICIAN Internal Medicine; OTHER PHYSICIAN Internal Medicine
PROC: 027135Z Dilation of Coronary Artery, Two Arteries with Two Drug-eluting Intraluminal Devices, Percutaneous Approach (ICD-10-PCS; 2024-02-04)
PROC: B2151ZZ Fluoroscopy of Left Heart using Low Osmolar Contrast (ICD-10-PCS; 2024-02-04)
PROC: 4A023N7 Measurement of Cardiac Sampling and Pressure, Left Heart, Percutaneous Approach (ICD-10-PCS; 2024-02-04)
PROC: B2111ZZ Fluoroscopy of Multiple Coronary Arteries using Low Osmolar Contrast (ICD-10-PCS; 2024-02-04)
DX: T82.855A Stenosis of coronary artery stent, initial encounter (principal); I13.0 Hypertensive heart and chronic kidney disease with heart failure and stage 1 through stage 4 chronic kidney disease, or unspecified chronic kidney disease; E87.1 Hypo-osmolality and hyponatremia; N17.9 Acute kidney failure, unspecified; I25.110 Atherosclerotic heart disease of native coronary artery with unstable angina pectoris; Z87.891 Personal history of nicotine dependence; Z79.82 Long term (current) use of aspirin; E11.51 Type 2 diabetes mellitus with diabetic peripheral angiopathy without gangrene; N18.32 Chronic kidney disease, stage 3b; E11.22 Type 2 diabetes mellitus with diabetic chronic kidney disease; I50.9 Heart failure, unspecified; J44.9 Chronic obstructive pulmonary disease, unspecified; E78.00 Pure hypercholesterolemia, unspecified; Z79.02 Long term (current) use of antithrombotics/antiplatelets; F41.9 Anxiety disorder, unspecified; K21.9 Gastro-esophageal reflux disease without esophagitis; Y83.1 Surgical operation with implant of artificial internal device as the cause of abnormal reaction of the patient, or of later complication, without mention of misadventure at the time of the procedure
CPT/HCPCS: 36252; 78452; 80048; 80053; 82962; 83036; 84484; 85025; 85610; 85730; 93005; 93017; 93459; 96374; 96375; 99291; A9500; C1760; C1894; J2785; Q9967

== ENCOUNTER 2024-02-24 22:31 | Inpatient (IN) | payer MEDICARE, OTHER, SELFPAY ==
[2024-02-24] VITALS (17 sets, daily range): BP systolic 93–188; BP diastolic 62–171; BMI 27.8
[2024-02-24] MEDS: LOPRESSOR 5 MG IV (20:30)
[2024-02-24] MEDS: NITROSTAT (SUBLINGUAL) 0.400000000000000022 MG SL ×2 (20:30→20:37)
[2024-02-24 20:31] LABS: % Basophils 0.6 % (0-2); % Eosinophils 2.7 % (0-6); % Immature Granulocytes 0.2 % (0-0.5); % Lymphocytes 38.5 % (20.5-51.1); % Monocytes 14.1 % (1.7-9.3); % Neutrophils 43.9 % (42.2-75.2); Absolute Basophils 0.1 10^3/uL (0-0.2); Absolute Eosinophils 0.2 10^3/uL (0-0.7); Absolute Lymphocytes 3.4 10^3/uL (1.2-3.4); Absolute Monocytes 1.3 10^3/uL (0.1-0.6); Absolute Neutrophils 3.9 10^3/uL (1.4-6.5); Hematocrit 38.2 % (39.0-52.0); Hemoglobin 13.4 g/dL (13.0-18.0); Mean Corp Hgb Conc. 35.1 g/dL (33.0-37.0); Mean Corpuscular Hgb 31.2 pg (27.0-31.0); Mean Corpuscular Volume 88.8 fL (80.0-94.0); Mean Platelet Volume 9.2 fL (7.4-10.4); Nucleated Red Blood Cells % 0 % (-); Platelet Count 259 10^3/uL (130-400); Red Cell Dist. Width 13.4 % (11.5-14.5); White Blood Cell Count 8.9 10^3/uL (4.8-10.8)
[2024-02-24] MEDS: CARDIZEM 125 IV (20:36)
[2024-02-24 20:41] LABS: PT 13.2 Sec (11.4-14.6)
[2024-02-24 20:43] LABS: ALT (SGPT) 26 U/L (0-50); AST (SGOT) 29 U/L (17-59); Albumin 4.5 g/dl (3.5-5.0); Alkaline Phosphatase 69 U/L (38-126); Blood Urea Nitrogen 23 mg/dl (9-20); Calcium 10.3 mg/dl (8.4-10.2); Carbon Dioxide 25 mmol/L (22-30); Chloride 94 mmol/L (98-107); Estimated Creatinine Clearance 52 ml/min; Glucose 153 mg/dl (70-99); Potassium 3.3 mmol/L (3.5-5.1); Sodium 132 mmol/L (135-145); Total Bilirubin 0.7 mg/dl (0.2-1.3); Total Protein 7.7 g/dl (6.3-8.2)
[2024-02-24 20:55] LABS: Troponin I 0.022 ng/ml
--- NOTE | 2024-02-24 20:56 | ED.GENMED ---
History of Present Illness
General
Chief Complaint: Chest Pain
Source: patient, records, spouse, physician and previous hospital records
Exam Limitations: none
Time Seen by Provider: 02/24/24 20:22
Nursing documentation reviewed up to this point in time: agreed with
Travel History
Have you had any contact with someone who has COVID-19?: No
Do you have any symptoms of coronavirus? Fever > 100 degrees, chills, cough, shortness of breath, sore throat, loss of taste or smell, muscle aches, or headache?: No
History of Present Illness
History of Present Illness:
68-year-old male complex past cardiac history bypass surgery multiple cardiac caths, presents with chest pain onset about an hour ago took a sublingual nitro x 3 with not much relief no fever or chills has had some generalized fatigue for the last
few days old PCP earlier today told to hold medication is unclear which 1 it was, non-smoker occasional drinker, had a cardiac cath a few weeks ago apparently no lesions amenable to stenting he sees Dr. Stuart
Past History
Past History
ED Past Medical History: CAD, COPD, CVA (History of TIA), GERD, HTN, Hypercholesterolemia, NIDDM and Other (Peripheral arterial disease)
ED Past Surgical History: Cardiac (CABG 2011, PTCA with stent January 2016) and Other (Bilateral carotid stenting 2011, left carotid artery stent 2020, hernia repair, retinal tears bilaterally 2018)
Social History
Tobacco: Former smoker
Alcohol: Daily
Drug: None
Personal:
Living: with family
Employment: Retired
Family History
Family History: Other (reviewed and noncontributory)
Review of Systems
Review of Systems
All Other Systems: Not applicable
Constitutional: Reports fatigue; Denies fever or chills
Respiratory: Reports trouble breathing
Cardiac: Reports chest pain and palpitations
ABD/GI: Reports no symptoms
: Reports no symptoms
Musculoskeletal: Reports no symptoms
Skin: Reports no symptoms
Neurological: Reports weakness
Endocrine: Reports no symptoms
Phy Exam
Physical Exam
Physical Exam:
Physical Exam
General: 68 male looks dyspneic
Neck: No jaundice
Heart: Tachycardic
Lungs: no acute respiratory distress. clear bilaterally
Abdomen: Not tender
Neuro: alert and oriented. no focal neurological deficits
Skin: no rash
Psychiatric: well kept. interactive and cooperative
Extremities: no edema. no calf tenderness.
Scores
Heart Score for Chest Pain Patients
STEMI patient?: No
History: Highly Suspicious
ECG: Significant ST-Depression
Age: >/= 65 years
Risk Factors: >/= 3 Risk Factors or History of CAD
Troponin: >1 - <3 x Normal Limit
Heart Score for Chest Pain Patients: 9
Heart Score Risk: 72.7 % MACE over next 6 weeks
Course
Orders/Labs/Results
Orders:
Orders
02/24/24 20:04
Electrocardiogram (*1) Urgent
Reason for Study: Chest Pain
EKG- Treatment ONCE
02/24/24 20:24
Complete Blood Count/With Diff Urgent
Comprehensive Metabolic Panel Urgent
Magnesium Urgent
Comment: ADD ON
PTT Urgent
Comment: ADD ON
Prothrombin Time Urgent
Troponin I Urgent
02/24/24 20:26
Metoprolol [Lopressor] 5 mg IV NOW STA
Nitroglycerin Sublingual [Nitrostat (Sublingual)] 0.4 mg SL [id number] PRN
02/24/24 20:28
Nitroglycerin 100 mg/250 ml [Nitroglycerin Premix] 100 mg in 250 ml IV NOW
Initial dose in mcg/min, then titrate:: 20
Titrate to keep:: Chest Pain Free
Titrate by mcg/min:: 5 mcg/min, may increase by 10 mcg/min if dose > 20 mcg/min
Frequency of titrations (minutes):: every 3-5 minutes
Maximum dose in mcg/min:: 200
Begin to taper infusion when:: Remained at goal for 2hrs
Taper by mcg/min:: 5 mcg/min
Frequency of taper (minutes) if patient maintains goal:: 30
Taper to off?: Yes
If infusion off & no longer maintaining goal:: Contact Provider
02/24/24 20:45
Diltiazem 125 mg/125 ml Nss [Cardizem] 125 mg in 125 ml IV PER PROTOCOL
Initial dose in mg/hr, then titrate:: 10
Titrate to keep:: Heart rate 80-100 bpm
Titrate by mg/hr:: 5 mg/hr
Frequency of titrations (minutes):: 15
Maximum dose in mg/hr:: 15
02/24/24 20:52
Heparin 4,000 units IV NOW STA
02/24/24 20:54
PTT Urgent
Comment: Obtain baseline before beginning heparin infusion if not already collected
Potassium Chloride [KCl] 40 meq PO NOW STA
Nursing to Place Non Medication Order As Directed
Physician Order: PTT 6 hours after initial start of Heparin infusion
Above order entered?: Yes
02/24/24 20:55
Add On- LAB Urgent
Tests Added?: magnesium
02/24/24 20:59
Acetaminophen [Tylenol] 650 mg PO NOW STA
02/24/24 21:00
Heparin 90332 Units/250 ml 25,000 units in 250 ml IV PER PROTOCOL
Weight to be used for heparin protocol in kilograms (kg):: 92.986
Protocol:: Cardiac Tx/Acute Coronary
PTT Goal Range to be used:: PTT 73 to 111 seconds
Order type:: Initial
INITIAL Infusion Dose (UNITS/KG/hr) & then follow protocol:: 12 units/kg/hr
Infusion Dose in UNITS/hr & then follow protocol (UNITS/hr):: 1,000
INFUSION RATE in mL/hr & then follow protocol (mL/hr):: 10
PTT less than or equal to 64 seconds:: Increase rate by 200 units/hr (+ 2 mL/hr)
PTT 64.1 to 72.9 seconds:: Increase rate by 100 units/hr (+ 1 mL/hr)
PTT 73 to 111 seconds:: Target Range. No change in rate.
PTT 111.1 to 130.9 seconds:: Decrease rate by 100 units/hr (- 1 mL/hr)
PTT 131 to 199.9 seconds:: HOLD for 1 hr. Then decrease rate by 200 units/hr (- 2 mL/hr)
PTT greater than or equal to 200 seconds:: HOLD for 2 hrs & Notify Provider. Then decrease by 200 units/hr (-
2 mL/hr)
Lab follow-up:: Each change, PTT q6h until 2 consecutive are therapeutic. Then PTT
daily.
02/24/24 21:06
ASA Classification Routine
Propofol [Diprivan] 100 mg IV NOW STA
02/24/24 21:30
Add On- LAB Urgent
Tests Added?: ptt
02/24/24 21:53
CR Chest Portable - 1 View Urgent
Comment:
Reason For Exam: cp
Reason Study Needs to be Portable: Patient Unstable
02/24/24 21:56
Digoxin [Lanoxin] 250 mcg IV NOW STA
02/24/24 22:06
Admit/Transfer Patient As Directed
Co-Sign Provider:
Level of Care: Inpatient admission
Assign to:: IVU
Physician / Group: Brent
Diagnosis: A-Fib
Reason for Hospitalization: cardizem drip, heparin
Expected length of stay greater than two midnights?: Yes
ELOS- Estimated Length of Stay in days: 3
I certify the patient meets the requirements for IP care: Yes
02/24/24 22:11
Code Status As Directed
Resuscitation Status: Full Code
02/25/24 00:30
Troponin I Q6H
02/25/24 03:30
PTT Routine
02/25/24 06:30
Troponin I Q6H
Abnormal Lab Results
02/24/24
20:24
RBC 4.30 L 10^6/uL
(4.70-6.10)
Hct 38.2 L %
(39.0-52.0)
MCH 31.2 H pg
(27.0-31.0)
Absolute Monos (auto) 1.3 H 10^3/uL
(0.1-0.6)
Monocytes % 14.1 H %
(1.7-9.3)
Sodium 132 L mmol/L
(135-145)
Potassium 3.3 L mmol/L
(3.5-5.1)
Chloride 94 L mmol/L
(98-107)
BUN 23 H mg/dl
(9-20)
Creatinine 1.5 H mg/dL
(0.7-1.3)
Glucose 153 H mg/dl
(70-99)
Calcium 10.3 H mg/dl
(8.4-10.2)
02/24/24 20:24
02/24/24 20:24
Vital Signs
Initial and Last Documented VS:
Initial Vital Signs
Temp Pulse Resp BP Pulse Ox
98.3 F 139 16 164/115 98
02/24/24 20:05 02/24/24 20:05 02/24/24 20:02/24/24 20:05 02/24/24 20:05
Last Documented Vital Signs
Temp Pulse Resp BP Pulse Ox
98.3 F 115 26 167/121 98
02/24/24 20:02/24/24 22:06 02/24/24 21:45 02/24/24 21:45 02/24/24 21:45
MDM/Problems Addressed
Differential Diagnosis Includes:
Rapid A-fib ACS ST segment elevation non-ST segment elevation
MDM/Problems Addressed:
Chest pain
Chronic conditions affecting care: DM, HTN and CAD
Acute Exacerbation and/or Progression of Chronic Illness: DM, HTN and CAD
*Radiology
Radiology exam reviewed: preliminary read by ED provider
*Pulse Oximetry
Patient hypoxic: no
*EKG
Interpreted by ED Provider?: Yes
Interpretation: abnormal
Comparison EKG: changes noted
Heart Rate: 140
Rate: tachycardiac
Rhythm: a-fib
Ischemia: ST depression
*Engineering Lab Technician Interpretation
Rate: tachycardiac
Interpretation: abnormal
Heart Rate: 140
Rhythm: a-fib
*Critical Care Note
Total Time (30-74mins, 75-104mins- exclusive of procedures): 30
Update Note
Update Note:
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
Will follow closely
ED Attending Note
-
Portions of this chart may have been created with voice recognition software.� Occasional wrong word or��sound alike� substitutions may have occurred due to the inherent limitations of voice recognition software.
Discharge Plan
Departure
Patient Disposition: Admit
Date of Disposition: 02/24/24
Time of Disposition: 21:25
Admit to: IVU
Presentation/result/management discussed w/ accepting MD/DO: Hospitalist
Patient with high blood pressure during this ER visit?: Yes
Condition: Fair
Discharge Problem:
Unstable angina, Atrial fibrillation with RVR
Prescriptions:
No Action
pantoprazole [Protonix] 40 MG tablet,delayed release (DR/EC)
40 mg PO DAILY
aspirin [Bean Chewable Aspirin] 81 MG tablet,chewable
81 mg PO DAILY
fluoxetine 20 MG capsule
20 mg PO DAILY
nitroglycerin 0.4 MG tablet, sublingual
0.4 mg sublingual [id number] PRN (Reason: chest pain) Qty: 75 3RF
Jardiance 10 mg Tablet
10 mg PO DAILY Qty: 30 2RF
Hold Instructions: Resume on 05/25/23.
multivitamin Tablet
1 tab PO DAILY
isosorbide mononitrate 120 mg tablet extended release 24 hr
120 mg PO DAILY
amlodipine 10 mg tablet
10 mg PO DAILY
rosuvastatin 20 mg tablet
40 mg PO QPM
metformin 1,000 MG tablet
1,000 mg PO BID@0800,1700
Hold Instructions: Resume on 02/08/24.
Rx Instructions:
resume thursday evening
albuterol sulfate [ProAir HFA] 90 MCG/PUFF HFA aerosol inhaler
2 puff inhalation R Q6HPRN PRN (Reason: sob/wheezing)
gabapentin 600 mg Tablet
600 mg PO DAILYPRN PRN (Reason: mild pain)
sucralfate [Carafate] 1 gram Tablet
1 g PO BID
glimepiride 2 mg Tablet
2 mg PO QPM
acetaminophen 650 mg Tablet Extended Release
650 mg PO QIDPRN PRN (Reason: mild pain)
insulin glargine [Basaglar KwikPen U-100 Insulin] 100 unit/mL (3 mL) Insulin Pen
50 unit SC HS
calcium carbonate [Tums] 200 mg calcium (500 mg) Tablet,Chewable
200 mg PO BIDPRN PRN (Reason: gerd)
furosemide 40 mg tablet
40 mg PO DAILY
clopidogrel 75 MG tablet
75 mg PO DAILY
metoprolol succinate 25 mg Tablet Extended Release 24 Hr
25 mg PO DAILY Qty: 30 0RF
losartan 100 mg tablet
100 mg PO DAILY Qty: 30 0RF
eydal-1x-srb-epa-fish oil 1 EACH capsule
1 ea PO BID
Referrals:
Ismael Holt I., DO [Family Provider] -
Interventions
Interventions:
*Risk Screen - Suicide Last Done: 02/24/24 20:06
*General Assessment Last Done: 02/24/24 21:45
*Neglect/Abuse Screening Last Done: 02/24/24 20:06
ED- Fall Risk Assessment Last Done: 02/24/24 21:46
*ED COVID-19 Vaccine History Last Done: 02/24/24 20:06
ED- Cardiac Assessment Last Done: 02/24/24 21:46
Discharge Date and Time
Print Language: ROMANIAN
[2024-02-24] MEDS: NITROGLYCERIN PREMIX IV (21:03)
[2024-02-24 21:22] LABS: Magnesium 1.7 mg/dl (1.6-2.3)
[2024-02-24] MEDS: KCL 40 MEQ PO (21:22)
[2024-02-24] MEDS: TYLENOL 650 MG PO (21:22)
[2024-02-24] MEDS: HEPARIN 4000 UNITS IV (21:22)
[2024-02-24] MEDS: HEPARIN 25000 UNITS/250 ML IV (21:23)
[2024-02-24] MEDS: NITROGLYCERIN PREMIX 250 IV (21:48)
--- NOTE | 2024-02-24 21:50 | HPS.HSE ---
Family Physician
-
Family Physician: Ismael Holt
Chief Complaint
-
Chest Pain
History of Present Illness
Patient is a 68 y/o male past medical history of CAD, PAD, HTN, DM and COPD who presents with chest pain. Patient reports chest pain started around 7pm this evening. He describes the pain as pressure in the center of his chest. He reports
symptoms are similar to his angina but today it did not improve after 3 doses of nitroglycerin thus he presented to the emergency department for evaluation. He reports associated fluttering sensation in his chest which he states is unusual. He
denies shortness of breath or diaphoresis.
Medical History
Past Medical History
Past Medical History: Reports Other
Additional Past Medical History:
Coronary Artery Disease s/p CABG and Stents
Peripheral Arterial Disease s/p Bilateral Carotid Arterty Stents
Essential Hypertension
Hyperlipidemia
Diabetes Mellitus, Type II
COPD
GERD
Past Surgical History: Reports Other
Additional Past Surgical History:
CABG
Cardiac Stent
Bilateral Carotid Stents
Hernia Repair
Retinal Tear Repair
Social History
Tobacco: Former Smoker
Alcohol: Occasional
Family History
Family History: Not pertinent
Allergies / Home Medications
Allergies reflects when Allergies were last updated in [email or web address].
Home Medications with original date entered in [email or web address]
Allergy/Medication List:
Allergies
Allergy/AdvReac Type Severity Reaction Status Date / Time
hydromorphone HCl Allergy ONLY Verified 02/24/24 20:04
[From Dilaudid] NAUSEA,
HAS HAD IT
SINCE [place]
simvastatin [From Zocor] Allergy muscle Verified 02/24/24 20:04
cramps
Home Medications
pantoprazole 40 mg tablet,delayed release (Protonix) 40 mg PO DAILY GERD 09/26/14
omega-3s 600 aq-sxc-ziw-other [id number] oil 1,200 mg capsule 1 ea PO BID Supplement 03/10/18
aspirin 81 mg chewable tablet (Bean Chewable Low Dose Aspirin) 81 mg PO DAILY Blood clot prevention/tx 08/09/21
fluoxetine 20 mg capsule 20 mg PO DAILY Mental Health/Anxiety 08/09/21
nitroglycerin 0.4 mg sublingual tablet 0.4 mg sublingual [id number] PRN chest pain ##75 08/09/21
empagliflozin 10 mg tablet (Jardiance) 10 mg PO DAILY #30 tabs 11/14/22
albuterol sulfate 90 mcg/actuation aerosol inhaler (ProAir HFA) 2 puff inhalation R Q6HPRN PRN sob/wheezing 05/20/23
amlodipine 10 mg tablet 10 mg PO DAILY Blood Pressure 05/20/23
isosorbide mononitrate 120 mg tablet,extended release 24 hr 120 mg PO DAILY Heart Disease/Condition 05/20/23
metformin 1,000 mg tablet 1,000 mg PO BID@0800,1700 Diabetes 05/20/23
multivitamin 1 tab PO DAILY Supplement 05/20/23
rosuvastatin 20 mg tablet 40 mg PO QPM High Cholesterol 05/20/23
acetaminophen 650 mg tablet,extended release 650 mg PO QIDPRN PRN mild pain 02/04/24
calcium carbonate (Tums) 200 mg PO BIDPRN PRN gerd 02/04/24
clopidogrel 75 mg tablet 75 mg PO DAILY Blood Clot Prevention/Tx 02/04/24
furosemide 40 mg tablet 40 mg PO DAILY Fluid Retention/Swelling 02/04/24
gabapentin 600 mg tablet 600 mg PO DAILYPRN PRN mild pain 02/04/24
glimepiride 2 mg tablet 2 mg PO QPM Diabetes 02/04/24
insulin glargine 100 unit/mL (3 mL) subcutaneous pen (Basaglar KwikPen U-100 Insulin) 50 unit SC HS Diabetes 02/04/24
sucralfate 1 gram tablet (Carafate) 1 g PO BID Gastrointestinal Issue 02/04/24
losartan 100 mg tablet 100 mg PO DAILY #30 tabs 02/05/24
metoprolol succinate 25 mg tablet,extended release 24 hr 25 mg PO DAILY #30 tabs 02/05/24
Review of Systems
-
A 12 point ROS was completed and negative except as noted: Yes
Constitutional: Denies Fever or Chills
Respiratory: Denies Cough or Trouble Breathing
Cardiac: Reports See HPI
Physical Exam
Vital Signs
Vital Signs
Temp Pulse Resp BP Pulse Ox
98.3 F 121 26 167/121 98
02/24/24 20:05 02/24/24 21:45 02/24/24 21:45 02/24/24 21:45 02/24/24 21:45
Physical Exam
General: Well Developed and Well Nourished
HEENT: Anicteric and Moist mucous membranes
Respiratory: Clear and Non Labored Respirations
Cardiac: S1/S2, Irregular Rhythm and Tachycardia
GI: Soft, Non Tender and Other (Protuberant)
Rectal: Deferred by Provider
Musculoskeletal: No Clubbing, No Cyanosis and No Edema
Skin: Warm and Dry
Neuro: Awake, Alert, Oriented and Nonfocal/grossly intact
Psych: Calm
Laboratory Results
-
02/24/24 20:24
02/24/24 20:24
Laboratory Results
PT 13.2 Sec (11.4-14.6) 02/24/24 20:24
INR 1.00 02/24/24 20:24
APTT 27.0 Sec (23.4-35.0) 02/24/24 20:24
Total Bilirubin 0.7 mg/dl (0.2-1.3) 02/24/24 20:24
AST 29 U/L (17-59) 02/24/24 20:24
ALT 26 U/L (0-50) 02/24/24 20:24
Alkaline Phosphatase 69 U/L (38-126) 02/24/24 20:24
Troponin I 0.022 ng/ml 02/24/24 20:24
Data Reviewed
-
Lab Data: Labs Reviewed by me
Old Records: Reviewed
Impression/Plan
-
Atrial Fibrillation with Rapid Ventricular Response - New Diagnosis
-Reviewed with Cardiology
-Continue heparin drip
-Continue Cardizem drip
-Give dose of digoxin to help with rate control
-Continue Toprol as prior to admission
-NPO after midnight for possible cardioversion in AM
Chest Pain, suspect angina equivalent triggered by rapid a-fib
-Continue to trend troponin
-Continue nitro drip
Coronary Artery Disease s/p CABG and Stents
Peripheral Arterial Disease s/p Bilateral Carotid Artery Stents
-Continue aspirin
-Hold Plavix while on heparin drip
Essential Hypertension
-Hold amlodipine and losartan while nitro drip to avoid hypotension
Hyperlipidemia
-Continue Crestor
Diabetes Mellitus, Type II
-Half usual dose of Lantus ordered while NPO
-Hold oral meds
-Monitor sugars and continue coverage insulin
GERD
-Continue Protonix and Carafate
Anxiety
-Continue fluoxetine
DVT proph: Heparin Drip
Code Status: Full Code
[2024-02-24] MEDS: LANOXIN 250 MCG IV (22:06)
--- NOTE | 2024-02-24 22:14 | W.PN.UPDATE ---
Update Note
Progress Note Update
This is an addendum to H&P written by RONDA Hadley
I saw and examined the patient.
The PONY ROLL FINISHER's note was reviewed and I agree with the note.
Comment:
Mr. Ismael Cervantes is a 68 yo man with hx CAD (CABG 2011, multiple PCI with recent repeat cath 02/04/24 showing severe [place] multivessel CAD with patent GRIJALVA-LAD and patent SVG connecting OM3 and D1; mid RCA with multiple layers of stent patent with
mild restenosis), carotid artery stenosis s/p stenting, COPD, TIA, GERD, HTN, HLD, NIDDM CKD 3 presents to the ER with chest pain not responsive to nitro x 3. Upon arrival patient found to be in afib with RVR.
Triage VS: T 98.3, P 139, RR 16, BP 164/115, SpO2 98%
LABS: WBC 8.9, HG 13.4, PLT 259, Na 132, K+ 3.3 (repleted), Cr 1.5 (upper limit baseline), glucose 153, Ca 10.3, liver enzymes WNL, Trop 0.022
EKG: afib @ 137, lateral ST depressions
Chest pain
History CAD s/p CABG, multiple PCI
-case discussed with cardiology, he has severe untreatable disease with hx multiple cardiac catheterizations in past
-admit to IVU
-continue GLOBAL PROCESS OWNER asa/plavix/statin
-continue IV heparin gtt for medical management of unstable angina (exacerbated in setting of afib with RVR, see below)
-continue IV nitro gtt titrated to chest pain
-resume GLOBAL PROCESS OWNER Imdur starting tomorrow
-rate control as below
-trend Troponins
-TTE
-formal cardiology consult tomorrow
Atrial Fibrillation with RVR
-patient has hx afib periop; this is a new diagnosis since then
-[id number] score= 7
-diltiazem gtt initiated in ER with rates 110's; after discussion with cardiology IV digoxin given; can continue dosing overnight if becomes tachycardiac again
-continue IV heparin gtt as above
-GLOBAL PROCESS OWNER metoprolol
-TTE as above
-F/U TSH
-NPO after MN until cardiology eval
Heart Failure preserved EF
-GLOBAL PROCESS OWNER lasix
GERD
-GLOBAL PROCESS OWNER Protonix, sucralfate
Essential HTN
-hold GLOBAL PROCESS OWNER Losartan and amlodipine to allow room in BP with nitro gtt and rate controlling medications
DM
-hold GLOBAL PROCESS OWNER oral medications while NPO
-1/2 GLOBAL PROCESS OWNER Lantus
-ISS
[2024-02-24] MEDS: MAGNESIUM SULFATE 100 IV (23:23)
[2024-02-24 23:24] LABS: Glucose - Point of Care 158 mg/dl (70-99)
[2024-02-24] MEDS: LANTUS 0.25 UNITS SC (23:44)
[2024-02-24 23:45] LABS: TSH Reflex To Free T4 1.15 uIU/ml (0.47-4.68)
[2024-02-25] VITALS (21 sets, daily range): BP systolic 92–174; BP diastolic 49–106; BMI 28.4
--- NOTE | 2024-02-25 00:14 | PTCARENOTE ---
Received pt from ED. Oriented to unit. Tele- Afib. HR 80-100s. Cardizem gtt infusing at 15ml/hr. Nitroglycerin gtt infusing at 20mcg/min. Heparin gtt infusing at 1000units/hr. Mag infusing at 100ml/hr as ordered. Pt reports CP 12/05. BP 116/62.
Troponin drawn and sent. Currently in bed; call alayna w/in reach.
[2024-02-25 00:57] LABS: Troponin I 0.113 ng/ml
[2024-02-25 05:18] LABS: Hematocrit 40.1 % (39.0-52.0); Hemoglobin 13.5 g/dL (13.0-18.0); Mean Corp Hgb Conc. 33.7 g/dL (33.0-37.0); Mean Corpuscular Hgb 30.7 pg (27.0-31.0); Mean Corpuscular Volume 91.1 fL (80.0-94.0); Mean Platelet Volume 9.6 fL (7.4-10.4); Platelet Count 250 10^3/uL (130-400); Red Cell Dist. Width 13.2 % (11.5-14.5); White Blood Cell Count 7.4 10^3/uL (4.8-10.8)
[2024-02-25 05:20] LABS: APTT 42.9 Sec (23.4-35.0)
[2024-02-25 05:29] LABS: Blood Urea Nitrogen 21 mg/dl (9-20); Calcium 10.2 mg/dl (8.4-10.2); Carbon Dioxide 25 mmol/L (22-30); Chloride 100 mmol/L (98-107); Estimated Creatinine Clearance 58 ml/min; Glucose 141 mg/dl (70-99); Magnesium 2.1 mg/dl (1.6-2.3); Potassium 3.7 mmol/L (3.5-5.1); Sodium 136 mmol/L (135-145); eGFR 59.84
[2024-02-25 06:00] LABS: TSH Reflex To Free T4 0.71 uIU/ml (0.47-4.68)
[2024-02-25 06:54] LABS: Troponin I 0.285 ng/ml
--- NOTE | 2024-02-25 07:54 | CON.CAR ---
Consultation
Consultation Request
Date/Time Consultation Requested: 02-25-2024, 6am
Date/Time Consultation Performed: 02-25-2024, 7AM
Requesting Provider: Jaqueline Kennedy
Performing Provider: Shyam Stuart
Reason for Consultation: AF/RVR
Medical History
-
History of Present Illness:
Outpt primary: Jonathon
Outpt cardiology: Narciso
Out pt pulmonary: Danny
68 yo well known to me with complex CAD (multiple PCI procedures then CABG 2013 and multiple PCI procedures since) presented to ER with ongoing anginal pain last night. He was seen by Dr Holt in AM complaining of GI Sxs. Later in day noted
onset of anginal discomfort which was persistent and resulted in ER visit. In ER HR 137 and ECG c/w afib vs aflutter with VR 137. Angina resolved with rate control. His only prior AF was periop AF at time of CABG in 2013. Trop 0.2 this AM. Feels
much better with resolution of angina.
PMH
Complex CAD
PAD with hx bilat ICA HERRERA
Hx CVA
AODM
COPD
HTN
CKD
Dyslipidemia
PE
Comfortable supine
117/80, HR 78 irreg, R 16, afeb
cor IRS1S2 no murmur
Lungs clear
ext no edema
IMP:
AF/RVR: New with only prior episode 2014 periop CABG CHADS2 vasc is 5 (age (1), HTN, DM, hx CVA). He has very diffuse unrevascularizable CAD and it is not at all surprising that he had prolonged angina in setting of tachycardia. No indication for
ischemic eval as anatomy was defined by cath several months ago. Continue IV dilt for now. Stop UFH and being Eliquis. Will treate with Eliquis and ASA and stop plavix. IF he does not convert spontaneously to NSR he will undergo SAGRARIO guided DCCV
tomorrow. I do not believe he will do will in AF waiting for 3-4 wks before we can safely do DCCV without SAGRARIO. Check ECHO. TSH was normal at 0.71
CAD: Type 2 IL due to severe underlying CAD and prolonged tachycardia. Continue outpt Rx
Dyslipidemia; Check Lipid panel
Discussed plan with pt and Darshana (former nurse). I will contact Dr Quesada
Allergies / Home Medications
Allergy/AdvReac Type Severity Reaction Status Date / Time
hydromorphone HCl Allergy ONLY Verified 02/24/24 20:04
[From Dilaudid] NAUSEA,
HAS HAD IT
SINCE [place]
simvastatin [From Zocor] Allergy muscle Verified 02/24/24 20:04
cramps
�Medication �Instructions �Recorded �Confirmed �Type
pantoprazole 40 mg tablet,delayed 40 mg PO DAILY GERD 09/26/14 02/24/24 History
release (Protonix)
omega-3s 600 uv-tzd-vvr-other 1 ea PO BID Supplement 03/10/18 02/24/24 History
efuon8l-llyh oil 1,200 mg capsule
aspirin 81 mg chewable tablet 81 mg PO DAILY Blood clot 08/09/21 02/24/24 History
(Bean Chewable Low Dose Aspirin) prevention/tx
fluoxetine 20 mg capsule 20 mg PO DAILY Mental 08/09/21 02/24/24 History
Health/Anxiety
nitroglycerin 0.4 mg sublingual 0.4 mg sublingual [id number] PRN 08/09/21 02/24/24 Rx
tablet chest pain ##75
empagliflozin 10 mg tablet 10 mg PO DAILY #30 tabs 11/14/22 02/24/24 Rx
(Jardiance)
albuterol sulfate 90 mcg/actuation 2 puff inhalation R Q6HPRN PRN 05/20/23 02/24/24 History
aerosol inhaler (ProAir HFA) sob/wheezing
amlodipine 10 mg tablet 10 mg PO DAILY Blood Pressure 05/20/23 02/24/24 History
isosorbide mononitrate 120 mg 120 mg PO DAILY Heart 05/20/23 02/24/24 History
tablet,extended release 24 hr Disease/Condition
metformin 1,000 mg tablet 1,000 mg PO BID@0800,1700 Diabetes 05/20/23 02/24/24 History
multivitamin 1 tab PO DAILY Supplement 05/20/23 02/24/24 History
rosuvastatin 20 mg tablet 40 mg PO QPM High Cholesterol 05/20/23 02/24/24 History
acetaminophen 650 mg 650 mg PO QIDPRN PRN mild pain 02/04/24 02/24/24 History
tablet,extended release
calcium carbonate (Tums) 200 mg PO BIDPRN PRN gerd 02/04/24 02/24/24 History
clopidogrel 75 mg tablet 75 mg PO DAILY Blood Clot 02/04/24 02/24/24 History
Prevention/Tx
furosemide 40 mg tablet 40 mg PO DAILY Fluid 02/04/24 02/24/24 History
Retention/Swelling
gabapentin 600 mg tablet 600 mg PO DAILYPRN PRN mild pain 02/04/24 02/24/24 History
glimepiride 2 mg tablet 2 mg PO QPM Diabetes 02/04/24 02/24/24 History
insulin glargine 100 unit/mL (3 50 unit SC HS Diabetes 02/04/24 02/24/24 History
mL) subcutaneous pen (Basaglar
KwikPen U-100 Insulin)
sucralfate 1 gram tablet (Carafate) 1 g PO BID Gastrointestinal Issue 02/04/24 02/24/24 History
losartan 100 mg tablet 100 mg PO DAILY #30 tabs 02/05/24 02/24/24 Rx
metoprolol succinate 25 mg 25 mg PO DAILY #30 tabs 02/05/24 02/24/24 Rx
tablet,extended release 24 hr
Physical Exam
Vital Signs
Temp Pulse Resp BP Pulse Ox
97.9 F 79 16 117/80 95
02/25/24 04:53 02/25/24 06:15 02/25/24 04:53 02/25/24 06:00 02/25/24 04:53
Lab Results
02/25/24 04:48
02/25/24 04:48
Troponin I Cancelled 02/25/24 23:49
--- NOTE | 2024-02-25 08:50 | W.PN.HOSP.TC ---
Today's Communication/Plan
-
see A/P
Assessment / Plan
Assessment / Plan
HPI: 68 y/o male past medical history of CAD, PAD, HTN, DM and COPD who presented with chest pain. Patient reports chest pain started around 7pm in the evening. He described the pain as pressure in the center of his chest. He reported symptoms are
similar to his angina but this time did not improve after 3 doses of nitroglycerin thus he presented to the emergency department for evaluation. He reports associated fluttering sensation in his chest which he states is unusual. He denies shortness
of breath or diaphoresis.
A/P:
# Atrial Fibrillation with Rapid Ventricular Response POA - New Diagnosis
s/p digoxin to help with rate control
Cont Cardizem drip for rate control
Continue Toprol as prior to admission
Off heparin drip and start Eliquis per Card
Card on board, recc SAGRARIO with DCCV tomorrow if pt does not spontaneously convert.
Check echo
TSH WNL at 0.71
# Chest Pain, suspect angina equivalent triggered by rapid a-fib
# h/o Coronary Artery Disease s/p CABG and Stents
Per card, he has very diffuse unrevascularizable CAD, no indication for ischemic eval as anatomy was defined by cath several months ago.
Continue to trend troponin to peak
Off nitro drip, started Imdur
Cont ASA, off FINANCIAL WELLNESS COACH Plavix with initiation of Eliquis
# Peripheral Arterial Disease s/p Bilateral Carotid Artery Stents
Cont ASA, off FINANCIAL WELLNESS COACH Plavix with initiation of Eliquis
# Essential Hypertension
Currently on Toprol, Imdur and Cardizem drip
BP stable
Off FINANCIAL WELLNESS COACH amlodipine and losartan
# Hyperlipidemia
Continue Crestor
# Diabetes Mellitus, Type II
Half usual dose of Lantus (25 units HS) while NPO
Hold oral meds
Monitor sugars and continue coverage insulin
# GERD
Continue Protonix and Carafate
# Anxiety
Continue fluoxetine
DVT proph: Eliquis
Code Status: Full Code
Anticipated Discharge: 24 - 48 hours
Subjective/Interval History
-
Date of Service: February 25, 2024
Objective Data
-
Labs:
Laboratory Results
02/24/24 02/24/24 02/25/24
20:24 20:54 04:48
WBC 7.4
Hgb 13.5
Hct 40.1
Plt Count 250
APTT 27.0 Cancelled 42.9 H
Sodium 136
Potassium 3.7
Chloride 100
Carbon Dioxide 25
BUN 21 H
Creatinine 1.3
Glucose 141 H
Calcium 10.2
02/25/24
11:30
WBC
Hgb
Hct
Plt Count
APTT Pending
Sodium
Potassium
Chloride
Carbon Dioxide
BUN
Creatinine
Glucose
Calcium
Vital Signs:
Vital Signs
Temp Pulse Resp BP Pulse Ox
36.6 C 79 18 117/80 96
02/25/24 07:00 02/25/24 06:15 02/25/24 07:00 02/25/24 06:00 02/25/24 07:00
I&O
02/24/24 02/25/24 02/26/24
06:59 06:59 06:59
Intake Total 240 / 240
Output Total 250 / 250
Balance -10 / -10
Review of Systems
-
Cardiac: Reports Chest Pain (improved )
Physical Exam
-
General: Well Developed, Well Nourished, No Apparent Distress, Comfortable and Conversant
HEENT: Normocephalic and Atraumatic
Respiratory: Clear to Auscultation and Non Labored Respirations; Negative Accessory Resp Muscle Use
Cardiac: S1/S2, Irregular Rhythm and Tachycardic; Negative Murmur or Rub
GI: Soft, Nontender and Nondistended
Neuro: Awake, Alert and Oriented
Psych: Calm and Intact Judgement/Insight
Data Reviewed
-
Labs: Labs Reviewed by me
[2024-02-25 09:23] LABS: Glucose - Point of Care 152 mg/dl (70-99)
[2024-02-25] MEDS: PROTONIX 40 MG PO (09:28)
[2024-02-25] MEDS: CARAFATE 1 GRAM PO ×2 (09:28→20:14)
[2024-02-25] MEDS: ELIQUIS 5 MG PO ×2 (09:28→20:14)
[2024-02-25] MEDS: LOW STRENGTH ASPIRIN 81 MG PO (09:28)
[2024-02-25] MEDS: PROZAC 20 MG PO (09:28)
[2024-02-25] MEDS: TOPROL XL 25 MG PO (09:28)
[2024-02-25] MEDS: IMDUR (EXTENDED RELEASE) 120 MG PO (09:28)
[2024-02-25] MEDS: LASIX 40 MG PO (09:30)
[2024-02-25] MEDS: KCL 40 MEQ PO (09:32)
[2024-02-25] MEDS: NOVOLOG FLEXPEN-MODERATE RESISTANCE 1 UNITS SC (10:30)
[2024-02-25] MEDS: CARDIZEM 125 IV (12:15)
[2024-02-25 12:58] LABS: Glucose - Point of Care 221 mg/dl (70-99)
[2024-02-25] MEDS: TUMS 1 TABLET PO (12:58)
[2024-02-25] MEDS: NOVOLOG FLEXPEN-MODERATE RESISTANCE 3 UNITS SC ×2 (12:59→18:29)
--- NOTE | 2024-02-25 13:47 | PTCARENOTE ---
Pt c/o belching after he ate breakfast, he was also slightly nauseous, while belching his HR went up in to the 140's and at that point he developed chest discomfort. Dr Kaminski notified. Pt's cardizem drip rate increased from 5 to 10 mg/hr. Tums
ordered by Dr Kaminski as well as Thorazine for belching. Pt's HR down in low 90-100's and after Pt had a tums, after which he felt better. No further c/o Chest discomfort or belching episodes. Thorazine not needed.
--- NOTE | 2024-02-25 14:50 | CM ---
CM following for DC planning needs.
Pt. known to me from prior admission. Pt. resides in a private, split level home w/ spouse. Functionally, patient is indep w/ ADLs, mobility without the use of any assisted device.
Pt. has CPAP at home, which he uses regularly.
Pt. has RX plan and uses [facility] in [place].
Met w/ patient at bedside. Reviewed CM role.
DC plan is anticipated for home, no needs.
Will cont. to follow.
[2024-02-25 18:29] LABS: Glucose - Point of Care 222 mg/dl (70-99)
[2024-02-25] MEDS: CRESTOR 40 MG PO (18:33)
[2024-02-25 21:40] LABS: Glucose - Point of Care 228 mg/dl (70-99)
[2024-02-25] MEDS: LANTUS 0.25 UNITS SC (22:19)
[2024-02-26] MEDS: CARDIZEM 125 IV (00:55)
--- NOTE | 2024-02-26 03:01 | PTCARENOTE ---
Has been sleeping at intervals. No complaints of pain when questioned. Aware he is NPO except meds/sips. A-fib/SR on the monitor. SR at present in the 70's.
[2024-02-26 04:58] VITALS: BP 119/82
[2024-02-26 05:20] VITALS: BMI 28.5
[2024-02-26 05:36] LABS: Hematocrit 38.3 % (39.0-52.0); Hemoglobin 12.7 g/dL (13.0-18.0); Mean Corp Hgb Conc. 33.2 g/dL (33.0-37.0); Mean Corpuscular Hgb 30.8 pg (27.0-31.0); Mean Platelet Volume 9.7 fL (7.4-10.4); Platelet Count 233 10^3/uL (130-400); Red Blood Cell Count 4.12 10^6/uL (4.70-6.10); Red Cell Dist. Width 13.4 % (11.5-14.5); White Blood Cell Count 6.8 10^3/uL (4.8-10.8)
[2024-02-26 06:04] LABS: Blood Urea Nitrogen 19 mg/dl (9-20); Calcium 9.5 mg/dl (8.4-10.2); Carbon Dioxide 25 mmol/L (22-30); Chloride 104 mmol/L (98-107); Estimated Creatinine Clearance 68 ml/min; Glucose 150 mg/dl (70-99); HDL Cholesterol 36 mg/dl; LDL Cholesterol, Calculated 58 mg/dl; Magnesium 1.7 mg/dl (1.6-2.3); Potassium 3.7 mmol/L (3.5-5.1); Sodium 137 mmol/L (135-145); Total Cholesterol 137 mg/dl (50-199); Triglyceride 216 mg/dl (10-149); Very Low Density Lipoprotein 43 mg/dl (0-30); eGFR > 60.00
[2024-02-26 06:05] LABS: Troponin I 0.077 ng/ml
--- NOTE | 2024-02-26 06:16 | PTCARENOTE ---
A-flutter on the monitor this am.
[2024-02-26 07:12] VITALS: BP 132/80
[2024-02-26 07:14] LABS: Glucose - Point of Care 156 mg/dl (70-99)
--- NOTE | 2024-02-26 08:13 | W.PN.HOSP.TC ---
Addendum entered and electronically signed by Stacie Kaminski MD 02/26/24 13:20:
# Chronic HFpEF was present on admission
Addendum entered and electronically signed by Stacie Kaminski MD 02/26/24 13:06:
Discussed with senior engineering team leader, patient had uncomplicated cardioversion back to sinus rhythm, patient has been cleared for discharge per cardiology Dr Yousif.
Pt can follow-up with his outpatient senior engineering team leader Dr. Stuart
total DC time 36 min
Original Note:
Today's Communication/Plan
-
see A/P
Assessment / Plan
Assessment / Plan
HPI: 68 y/o male past medical history of CAD, PAD, HTN, DM and COPD who presented with chest pain. Patient reports chest pain started around 7pm in the evening. He described the pain as pressure in the center of his chest. He reported symptoms are
similar to his angina but this time did not improve after 3 doses of nitroglycerin thus he presented to the emergency department for evaluation. He reports associated fluttering sensation in his chest which he states is unusual. He denies shortness
of breath or diaphoresis.
A/P:
# Atrial Fibrillation with Rapid Ventricular Response POA - New Diagnosis
TSH WNL at 0.71
s/p digoxin to help with rate control
Cont Cardizem drip for rate control
Continue Toprol as prior to admission
Off heparin drip and started Eliquis per Card
Pt has spontaneously converted to NSR
Echo unrevealing: EF 55-60%. Basal inferior hypokinesis. Normal right ventricular size and function. Aortic sclerosis without stenosis.
Card on board
# Chest Pain, suspect angina equivalent triggered by rapid a-fib
# h/o Coronary Artery Disease s/p CABG and Stents
Per card, he has very diffuse unrevascularizable CAD, no indication for ischemic eval as anatomy was defined by cath several months ago.
troponin peaked at 0.285
Off nitro drip, started Imdur
Cont ASA, off RECORD SEARCHER Plavix with initiation of Eliquis
# Peripheral Arterial Disease s/p Bilateral Carotid Artery Stents
Cont ASA, off RECORD SEARCHER Plavix with initiation of Eliquis
# Essential Hypertension
Currently on Toprol, Imdur and Cardizem drip
BP stable
Off RECORD SEARCHER amlodipine and losartan
# Hyperlipidemia
Continue Crestor
# Diabetes Mellitus, Type II
Half usual dose of Lantus (25 units HS) while NPO
Hold oral meds
Monitor sugars and continue coverage insulin
# GERD
Continue Protonix and Carafate
# Anxiety
Continue fluoxetine
DVT proph: Eliquis
Code Status: Full Code
DW at bedside
Anticipated Discharge: Within 24 hours
Subjective/Interval History
-
Date of Service: February 26, 2024
Objective Data
-
Labs:
Laboratory Results
02/26/24 02/26/24
05:10 05:11
WBC 6.8
Hgb 12.7 L
Hct 38.3 L
Plt Count 233
Sodium 137
Potassium 3.7
Chloride 104
Carbon Dioxide 25
BUN 19
Creatinine 1.1
Glucose 150 H
Calcium 9.5
Vital Signs:
Vital Signs
Temp Pulse Resp BP Pulse Ox
36.5 C 74 14 119/82 98
02/26/24 07:10 02/26/24 07:10 02/26/24 07:10 02/26/24 04:58 02/26/24 07:10
I&O
02/25/24 02/26/24 02/27/24
06:59 06:59 06:59
Intake Total 240 / 240
Output Total 250 / 250
Balance -10 / -10
Review of Systems
-
Cardiac: Denies Chest Pain
Physical Exam
-
General: Well Developed, Well Nourished, No Apparent Distress, Comfortable and Conversant
HEENT: Normocephalic and Atraumatic
Respiratory: Clear to Auscultation and Non Labored Respirations; Negative Accessory Resp Muscle Use
Cardiac: Regular Rhythm and S1/S2; Negative Murmur or Rub
GI: Soft, Nontender and Nondistended
Neuro: Awake, Alert and Oriented
Psych: Calm and Intact Judgement/Insight
Data Reviewed
-
Medical Tests (Nuc Med, Echo etc): Report Reviewed by me (echo)
Labs: Labs Reviewed by me
[2024-02-26] MEDS: CARAFATE 1 GRAM PO (08:35)
--- NOTE | 2024-02-26 09:45 | PN.CDI ---
CDI
- -
CDI:
Physician Documentation Request
Admit Date: 02/24/24 22:31
Dear Doctor Gordy,
Please review the following and provide your response in the progress notes.
Clinical Indicators:
The diagnosis of HFpEF was documented on 02/23 H&P addendum but is not consistently noted in subsequent documentation.
- 02/23 Update note 'Heart Failure preserved EF'
- per H&P home meds furosemide, metoprolol
- PO Lasix given
Please clarify the following:
____ - Chronic HFpEF was present on admission and is still being monitored, evaluated or treated
____ - Chronic HFpEF was ruled out
____ - Other
Use of terms such as suspected, likely, concern for, or probable (associated with a specific diagnosis that is being evaluated, monitored, or treated as if it exists) are acceptable and can be coded in the inpatient setting, when documented at the
time of discharge.
Thank you,
Cruzito Cid RN
CDI Specialist
Please use your independent medical judgment in providing your response.
[2024-02-26] MEDS: PROZAC 20 MG PO (09:57)
[2024-02-26] MEDS: LOW STRENGTH ASPIRIN 81 MG PO (09:57)
[2024-02-26] MEDS: ELIQUIS 5 MG PO (09:57)
[2024-02-26] MEDS: LASIX 40 MG PO (09:57)
[2024-02-26] MEDS: IMDUR (EXTENDED RELEASE) 120 MG PO (09:58)
[2024-02-26] MEDS: TOPROL XL 25 MG PO (09:58)
[2024-02-26] MEDS: PROTONIX 40 MG PO (10:00)
[2024-02-26] MEDS: NOVOLOG FLEXPEN-MODERATE RESISTANCE 1 UNITS SC (10:03)
--- NOTE | 2024-02-26 11:25 | ITS.CL.CARDI ---
Bulk Folder - Cardioversion
Cardioversion
Procedure Report:
Date of Procedure:
Procedure: Cardioversion
Indication: Symptomatic atrial fibrillation
Performing Physician: Carl Villavicencio MD
Technique: The patient was brought to the holding area. Signed informed consent was obtained. A time out was called and performed. The patient was anesthetized by the anesthesia service. Anticoagulation status was reviewed and appropriate. R2 pads
were placed anteriorly and posteriorly. After SAGRARIO revealed no LA thrombus, A 200 J synchronized biphasic shock restored normal sinus rhythm without significant bradycardia. There were no complications.
Conclusion: Uncomplicated cardioversion from atrial fibrillation to sinus rhythm.
Recommendation: Routine post cardioversion care. Continue detention anticoagulation.
--- NOTE | 2024-02-26 11:48 | CM ---
Addendum entered by RIA Gaxiola 02/26/24 14:15:
Pt. for DC today. No needs identified. Spoke w/ pt., spouse at bedside.
Plan: HOME, no needs.
Original Note:
CM following for DC planning needs.
CM will cont. to follow.
DC plan is anticipated for home, no needs.
[2024-02-26 12:03] VITALS: BP 116/73
--- NOTE | 2024-02-26 12:05 | PTCARENOTE ---
Rec'd Pt post SAGRARIO/CV, A,A+O, no complaints, in SR
[2024-02-26 12:21] LABS: Glucose - Point of Care 123 mg/dl (70-99)
[2024-02-26] MEDS: NOVOLOG FLEXPEN-MODERATE RESISTANCE SC (13:06)
--- NOTE | 2024-02-26 14:53 | W.DCSUMMARY ---
Discharge Summary
Discharge Data
Date of Admission: 02/24/24
Date of Discharge: 02/26/24
-
Pending Results: No
Hospital Course
Principal Diagnosis:
New diagnosis of atrial fibrillation (A fib) with rapid ventricular response on admission
Chest pain (resolved) suspect triggered by rapid A fib
Chronic Diagnoses:�
Coronary Artery Disease status post CABG and Stents
Peripheral Arterial Disease
Essential Hypertension, continue Toprol and Imdur, off amlodipine and losartan
Hyperlipidemia on Crestor
Insulin-dependent Diabetes Mellitus
Gastroesophageal reflux disease
Anxiety on fluoxetine
Consultations:�
Cardiology
Procedures:�
SAGRARIO with cardioversion
Clinical course:�
This is a 68-year-old male, with past medical history as stated above, who presented with chest pain and associated fluttering sensation in his chest.
Problem 1:
New onset A-fib with RVR on admission.
His TSH was within normal limits at 0.71.
He was treated with Cardizem drip initially, and received digoxin to help with rate control.
His prior to admission Toprol was continued, and he was started with Eliquis for anticoagulation in setting of A-fib.
He underwent SAGRARIO with cardioversion by cardiology on 02/26/2024. This helped conversion to sinus rhythm.
He can continue to follow-up with his microwave engineer outpatient.
Of note, his echo was unrevealing: EF 55-60%. Basal inferior hypokinesis. Normal right ventricular size and function. Aortic sclerosis without stenosis.
Problem 2:
Chest Pain, suspect angina equivalent triggered by rapid A fib.
Per card, he has very diffuse unrevascularizable CAD, hence there is no indication for ischemic eval this admission as his anatomy was defined by cath several months ago.
His troponin peaked at 0.285.
He can continue with his prior to admission Imdur.
With initiation of Eliquis, his prior to admission Plavix can be stopped. He can continue with his prior to admission aspirin.
As for the rest of his medical problems, they were stable during his hospital stay.
Discharge Plan
-
Patient Disposition: Home (Routine Discharge)
Discharge Diagnosis/Procedures: Atrial Fibrillation with Rapid Ventricular Response on admission status post uncomplicated cardioversion to sinus rhythm.
Condition: Fair
Diet: As tolerated, Low Fat, Low Cholesterol and Low Sodium
Activity: As tolerated
Driving Restrictions: As prior to admission
Activity Restrictions/Additional Instructions:
Follow up with your outpatient microwave engineer Dr. Stuart
Referrals:
Ismael Holt I., DO [Family Provider] - in less than 1 week
Additional Discharge Medication Instructions: Stop Norvasc and losartan
He was started with Eliquis, continue going forward
Stop Plavix
Prescriptions:
New
Eliquis 5 mg Tablet
5 mg PO BID Qty: 60 0RF
Continued
pantoprazole [Protonix] 40 MG tablet,delayed release (DR/EC)
40 mg PO DAILY
aspirin [Bean Chewable Aspirin] 81 MG tablet,chewable
81 mg PO DAILY
fluoxetine 20 MG capsule
20 mg PO DAILY
nitroglycerin 0.4 MG tablet, sublingual
0.4 mg sublingual [id number] PRN (Reason: chest pain) Qty: 75 3RF
Jardiance 10 mg Tablet
10 mg PO DAILY Qty: 30 2RF
Hold Instructions: Resume on 05/25/23.
multivitamin Tablet
1 tab PO DAILY
isosorbide mononitrate 120 mg tablet extended release 24 hr
120 mg PO DAILY
rosuvastatin 20 mg tablet
40 mg PO QPM
metformin 1,000 MG tablet
1,000 mg PO BID@0800,1700
Hold Instructions: Resume on 02/08/24.
Rx Instructions:
resume thursday evening
albuterol sulfate [ProAir HFA] 90 MCG/PUFF HFA aerosol inhaler
2 puff inhalation R Q6HPRN PRN (Reason: sob/wheezing)
gabapentin 600 mg Tablet
600 mg PO DAILYPRN PRN (Reason: mild pain)
sucralfate [Carafate] 1 gram Tablet
1 g PO BID
glimepiride 2 mg Tablet
2 mg PO QPM
acetaminophen 650 mg Tablet Extended Release
650 mg PO QIDPRN PRN (Reason: mild pain)
insulin glargine [Basaglar KwikPen U-100 Insulin] 100 unit/mL (3 mL) Insulin Pen
50 unit SC HS
calcium carbonate [Tums] 200 mg calcium (500 mg) Tablet,Chewable
200 mg PO BIDPRN PRN (Reason: gerd)
furosemide 40 mg tablet
40 mg PO DAILY
metoprolol succinate 25 mg Tablet Extended Release 24 Hr
25 mg PO DAILY Qty: 30 0RF
nlews-6v-trp-epa-fish oil 1 EACH capsule
1 ea PO BID
Discontinued
amlodipine 10 mg tablet
10 mg PO DAILY
clopidogrel 75 MG tablet
75 mg PO DAILY
losartan 100 mg tablet
100 mg PO DAILY Qty: 30 0RF
Discharge Orders:
Discharge Patient (As Directed); Ordered 02/26/24
Ordered By: Stacie Kaminski
Care Plan Goals
Care Plan Goals:
Problem: Readiness for enhanced knowledge related to diagnosis and treatment plan
Goal: Understand your diagnosis and treatment plan needs, including medications if applicable.
Instructions: Know your diagnosis, underlying causes and treatment plan options, including medications if applicable. Consult with your health care team to learn about your diagnosis and treatment plan, including medications if applicable.
Discharge Date and Time
Print Language: SPANISH
--- NOTE | 2024-02-26 17:02 | W.PN.CD ---
Today's Communication / Plan
-
Pt seen earlier today prior to SAGRARIO/Cardioversion.
Plan was to proceed to cardioversion and then home later today.
If Aflutter (or AFib develops) quickly recurs then will likely move to more aggressive rhythm control with Ablation or AAD or combination if needed. Accepting AFib/flutter could be considered as well.
Risks/benefits of anticoagulation reviewed. RAKING MACHINE OPERATOR bleed risk reviewed and warning re new/severe PHILIPPE or head trauma would lead to ER visit. Signs/symptoms of GI bleeding reviewed.
Modifiable AFib risk factors reviewed (ETOH, BMI, exercise, sleep apnea control, BP control).
55 min spent on patient care today by me.
Impression / Plan
-
New AFlutter, likely atypical
CAD, prior mi, prior cabg, many stents, severe disease
Sleep apnea
DM
Mixed hyperlipidemia
Physical Exam
Vital Signs/Labs
Vital Signs
Temp Pulse Resp BP Pulse Ox
98 F 70 16 116/73 97
02/26/24 12:03 02/26/24 14:00 02/26/24 12:03 02/26/24 12:03 02/26/24 12:03
02/25/24 02/26/24 02/27/24
06:59 06:59 06:59
Actual Weight 92.2 kg 92.8 kg
02/26/24 05:11
02/26/24 05:10
PT 13.2 Sec (11.4-14.6) 02/24/24 20:24
INR 1.00 02/24/24 20:24
APTT Cancelled 02/25/24 11:30
Magnesium 1.7 mg/dl (1.6-2.3) 02/26/24 05:10
Triglycerides 216 mg/dl (10-149) H 02/26/24 05:10
LDL Cholesterol, Calc 58 mg/dl 02/26/24 05:10
VLDL Cholesterol, Calc 43 mg/dl (0-30) H 02/26/24 05:10
HDL Cholesterol 36 mg/dl 02/26/24 05:10
LAB Results
02/24/24 02/25/24 02/25/24
20:24 00:01 06:12
Troponin I 0.022 0.113 H* D 0.285 H* D
02/25/24 02/25/24 02/26/24
12:07 23:49 05:11
Troponin I Cancelled Cancelled 0.077 H*
Physical Exam
Constitutional: No acute distress
EENT: Anicteric
Cardiovascular: Rhythm & rate is regular and Pedal edema is absent
Respiratory: Respiratory effort normal and Lungs clear to auscul.
GI: Soft and Distention absent
Neuro/Psych: AO x 3
Data Reviewed
-
Date of Service: February 26, 2024
== END 2024-02-26 17:41 | disposition home or self-care (01) | DRG 281 ==
LOC: IVU 22:31
PROVIDERS: Emergency Medicine; Internal Medicine Cardiovascular Disease; Physician Assistant Medical; ADMITTING PHYSICIAN Student in an Organized Health Care Education/Training Program; ATTENDING PHYSICIAN Internal Medicine; EMERGENCY PHYSICIAN Emergency Medicine; FAMILY PHYSICIAN Internal Medicine; OTHER PHYSICIAN Internal Medicine Cardiovascular Disease
PROC: B24BZZ4 Ultrasonography of Heart with Aorta, Transesophageal (ICD-10-PCS; 2024-02-26)
PROC: 5A2204Z Restoration of Cardiac Rhythm, Single (ICD-10-PCS; 2024-02-26)
DX: I48.91 Unspecified atrial fibrillation (principal); I50.32 Chronic diastolic (congestive) heart failure; I21.A1 Myocardial infarction type 2; Z87.891 Personal history of nicotine dependence; E11.51 Type 2 diabetes mellitus with diabetic peripheral angiopathy without gangrene; N18.30 Chronic kidney disease, stage 3 unspecified; E11.22 Type 2 diabetes mellitus with diabetic chronic kidney disease; I12.9 Hypertensive chronic kidney disease with stage 1 through stage 4 chronic kidney disease, or unspecified chronic kidney disease; E78.00 Pure hypercholesterolemia, unspecified; K21.9 Gastro-esophageal reflux disease without esophagitis; F41.9 Anxiety disorder, unspecified; Z79.4 Long term (current) use of insulin; I25.10 Atherosclerotic heart disease of native coronary artery without angina pectoris; Z95.1 Presence of aortocoronary bypass graft; I70.0 Atherosclerosis of aorta; I48.92 Unspecified atrial flutter
CPT/HCPCS: 71045; 80048; 80053; 80061; 82962; 83735; 84443; 84484; 85025; 85027; 85610; 85730; 92960; 93005; 93306; 93312; 93320; 93325; 96365; 96366; 96367; 96375; 99291; J1160

== ENCOUNTER 2024-02-29 21:00 | Inpatient (IN) | payer MEDICARE, OTHER, SELFPAY ==
[2024-02-29] VITALS (11 sets, daily range): BP systolic 88–145; BP diastolic 50–92; BMI 29.1
[2024-02-29 18:26] LABS: % Basophils 0.4 % (0-2); % Eosinophils 1.4 % (0-6); % Immature Granulocytes 0.3 % (0-0.5); % Lymphocytes 28.6 % (20.5-51.1); % Neutrophils 60.3 % (42.2-75.2); Absolute Eosinophils 0.1 10^3/uL (0-0.7); Absolute Lymphocytes 2.7 10^3/uL (1.2-3.4); Absolute Monocytes 0.9 10^3/uL (0.1-0.6); Absolute Neutrophils 5.7 10^3/uL (1.4-6.5); Hematocrit 38.1 % (39.0-52.0); Hemoglobin 12.6 g/dL (13.0-18.0); Mean Corp Hgb Conc. 33.1 g/dL (33.0-37.0); Mean Corpuscular Hgb 31.2 pg (27.0-31.0); Mean Corpuscular Volume 94.3 fL (80.0-94.0); Mean Platelet Volume 9.1 fL (7.4-10.4); Nucleated Red Blood Cells % 0 % (-); Platelet Count 254 10^3/uL (130-400); Red Blood Cell Count 4.04 10^6/uL (4.70-6.10); Red Cell Dist. Width 13.6 % (11.5-14.5); White Blood Cell Count 9.5 10^3/uL (4.8-10.8)
--- NOTE | 2024-02-29 18:38 | ED.GENMED ---
History of Present Illness
General
Chief Complaint: Heart Rate Problem
Source: patient
Exam Limitations: none
Time Seen by Provider: 02/29/24 18:23
Travel History
Have you had any contact with someone who has COVID-19?: No
Do you have any symptoms of coronavirus? Fever > 100 degrees, chills, cough, shortness of breath, sore throat, loss of taste or smell, muscle aches, or headache?: No
History of Present Illness
History of Present Illness:
See MDM
Past History
Past History
ED Past Medical History: CAD, COPD, CVA (History of TIA), GERD, HTN, Hypercholesterolemia, NIDDM and Other (Peripheral arterial disease)
ED Past Surgical History: Cardiac (CABG 2011, PTCA with stent January 2016) and Other (Bilateral carotid stenting 2011, left carotid artery stent 2020, hernia repair, retinal tears bilaterally 2018)
Social History
Tobacco: Former smoker
Alcohol: Daily
Drug: None
Personal:
Living: with family
Employment: Retired
Family History
Family History: Other (reviewed and noncontributory)
Phy Exam
Physical Exam
Physical Exam:
See MDM
Course
Orders/Labs/Results
Orders:
Orders
02/29/24 17:52
Electrocardiogram (*1) Urgent
Reason for Study: Chest Pain
EKG- Treatment ONCE
02/29/24 18:18
Complete Blood Count/With Diff Urgent
Comprehensive Metabolic Panel Urgent
Troponin I Urgent
02/29/24 18:38
Diltiazem HCl [Cardizem] 20 mg IV NOW STA
02/29/24 19:21
Case Management Consult ONCE
Case Management Consult: Discharge Planning
Comment: follow-up regarding obtaining Dofetilide (Tikosyn) after discharge
Dofetilide [Tikosyn] 250 mcg PO ONCE ONE
Abnormal Lab Results
02/29/24
18:18
RBC 4.04 L 10^6/uL
(4.70-6.10)
Hgb 12.6 L g/dL
(13.0-18.0)
Hct 38.1 L %
(39.0-52.0)
MCV 94.3 H fL
(80.0-94.0)
MCH 31.2 H pg
(27.0-31.0)
Absolute Monos (auto) 0.9 H 10^3/uL
(0.1-0.6)
BUN 23 H mg/dl
(9-20)
Creatinine 1.8 H mg/dL
(0.7-1.3)
Glucose 161 H mg/dl
(70-99)
Troponin I 0.055 H* ng/ml
02/29/24 18:18
02/29/24 18:18
Vital Signs
Initial and Last Documented VS:
Initial Vital Signs
Temp Pulse Resp BP Pulse Ox
98.9 F 135 20 134/83 98
02/29/24 17:58 02/29/24 17:58 02/29/24 17:58 02/29/24 17:58 02/29/24 17:58
Last Documented Vital Signs
Temp Pulse Resp BP Pulse Ox
98.9 F 135 20 131/79 98
02/29/24 17:58 02/29/24 18:56 02/29/24 17:58 02/29/24 18:56 02/29/24 17:58
MDM/Problems Addressed
Differential Diagnosis Includes:
HPI and MDM Narrative:
68-year-old male presenting with recurrent A-fib. Patient was recently admitted he was found to be new onset A-fib. He underwent SAGRARIO and had cardioversion and has been on Eliquis ever since. He is not quite sure when he went to A-fib. His
states he has been feeling off for the past day or 2. Patient states he feels short of breath with mild chest pain. Patient states he has a history of coronary artery disease with 20+ stents
Will give dose of IV Cardizem and discussed case with his mill roll rewinder
Physical exam
General: Well appearing and non-toxic
HEENT: protecting airway
Neck: appears supple
CV: No evidence of cyanosis. Tachycardic and regular
Resp: No accessory muscle use
Abd: Non-distended
Extremities: No deformities
Neuro: alert
Psych: Normal affect
Skin: Intact
Problems Addressed including Acute and Chronic Conditions affecting care:
1. Atrial flutter
Acuity: acute
Prognosis: unstable
Details: Will give dose of IV Cardizem push and discussed case with cardiology
Updates
As patient was given the Cardizem bolus, it was quickly stopped as his systolic blood pressure was dropping. He did not receive majority of the bolus.
Case was discussed with his mill roll rewinder Dr. Yousif. Given that he returned, we discussed starting Tikosyn. He had asked me to order the first dose. Based on creatinine clearance, will order 250 mcg
He discussed using metoprolol as needed for rate control overnight
Differential Diagnosis (but not limited to): A-fib, a flutter, SVT
Testing considered: D-dimer
Drug therapy (if applicable): OTC meds, please see d/c instruction regarding Rx drugs
Amount and/or Complexity of Data Reviewed
Clinical info obtained from: Patient
External data reviewed: Recent admission for SAGRARIO and cardioversion
Labs I independently reviewed (but not limited to): GFR. Elevated troponin baseline
Radiology: N/A
Pulse Ox: not hypoxic
EKG independently reviewed: N/A
Home Aide: N/A
Critical Care: N/A
Risk of Complication:
Social Determinants of health: Good social support
Discussed with other providers: Hospitalist, mill roll rewinder
Escalation of Care includes Admit/Obs: Given the recurrent A-fib, will start Tikosyn and admit
Occasional wrong word or 'sound a like' substitutions may have occurred due to the inherent limitations of voice recognition software. Read the chart carefully and recognize, using context, where substitutions have occurred.
*Critical Care Note
Total Time (30-74mins, 75-104mins- exclusive of procedures): Not Applicable
ED Attending Note
-
Portions of this chart may have been created with voice recognition software.� Occasional wrong word or��sound alike� substitutions may have occurred due to the inherent limitations of voice recognition software.
Discharge Plan
Departure
Patient Disposition: Admit
Date of Disposition: 02/29/24
Time of Disposition: 19:27
Admit to: Telemetry
Presentation/result/management discussed w/ accepting MD/DO: Hospitalist
Discharge Problem:
Atrial flutter, AGATA (acute kidney injury)
Prescriptions:
No Action
pantoprazole [Protonix] 40 MG tablet,delayed release (DR/EC)
40 mg PO DAILY
aspirin [Bean Chewable Aspirin] 81 MG tablet,chewable
81 mg PO DAILY
fluoxetine 20 MG capsule
20 mg PO DAILY
nitroglycerin 0.4 MG tablet, sublingual
0.4 mg sublingual [id number] PRN (Reason: chest pain) Qty: 75 3RF
Jardiance 10 mg Tablet
10 mg PO DAILY Qty: 30 2RF
Hold Instructions: Resume on 05/25/23.
multivitamin Tablet
1 tab PO DAILY
isosorbide mononitrate 120 mg tablet extended release 24 hr
120 mg PO DAILY
rosuvastatin 20 mg tablet
40 mg PO QPM
metformin 1,000 MG tablet
1,000 mg PO BID@0800,1700
Hold Instructions: Resume on 02/08/24.
Rx Instructions:
resume thursday evening
albuterol sulfate [ProAir HFA] 90 MCG/PUFF HFA aerosol inhaler
2 puff inhalation R Q6HPRN PRN (Reason: sob/wheezing)
gabapentin 600 mg Tablet
600 mg PO DAILYPRN PRN (Reason: mild pain)
sucralfate [Carafate] 1 gram Tablet
1 g PO BID
glimepiride 2 mg Tablet
2 mg PO QPM
acetaminophen 650 mg Tablet Extended Release
650 mg PO QIDPRN PRN (Reason: mild pain)
insulin glargine [Basaglar KwikPen U-100 Insulin] 100 unit/mL (3 mL) Insulin Pen
50 unit SC HS
calcium carbonate [Tums] 200 mg calcium (500 mg) Tablet,Chewable
200 mg PO BIDPRN PRN (Reason: gerd)
furosemide 40 mg tablet
40 mg PO DAILY
metoprolol succinate 25 mg Tablet Extended Release 24 Hr
25 mg PO DAILY Qty: 30 0RF
Eliquis 5 mg Tablet
5 mg PO BID Qty: 60 0RF
hypup-2j-hoi-epa-fish oil 1 EACH capsule
1 ea PO BID
Referrals:
Ismael Holt I., DO [Family Provider] -
Interventions
Interventions:
*Risk Screen - Suicide Last Done: 02/29/24 17:58
*General Assessment Last Done: 02/29/24 17:58
*Neglect/Abuse Screening Last Done: 02/29/24 17:58
Discharge Date and Time
Print Language: MALAGASY
[2024-02-29 18:45] LABS: ALT (SGPT) 18 U/L (0-50); AST (SGOT) 19 U/L (17-59); Albumin 4.3 g/dl (3.5-5.0); Alkaline Phosphatase 56 U/L (38-126); Blood Urea Nitrogen 23 mg/dl (9-20); Calcium 9.5 mg/dl (8.4-10.2); Carbon Dioxide 26 mmol/L (22-30); Chloride 98 mmol/L (98-107); Glucose 161 mg/dl (70-99); Sodium 135 mmol/L (135-145); Total Bilirubin 1.1 mg/dl (0.2-1.3); Total Protein 7.5 g/dl (6.3-8.2); eGFR 40.49
[2024-02-29 18:56] LABS: Troponin I 0.055 ng/ml
[2024-02-29] MEDS: CARDIZEM 20 MG IV (18:56)
--- NOTE | 2024-02-29 19:45 | HPS.HSE ---
Addendum entered and electronically signed by Fady Hidalgo DO 02/29/24 21:57:
Patient seen and examined independently. Agree with findings and plan as set forth by SANCHEZ Romero.
Patient is a 68y M with PMH significant for recently diagnosed A-Fib s/p SAGRARIO and cardioversion on 02/26/24. Patient states that he was feeling well at the time of his discharge that same day. Yesterday, patient noted some right sided chest
discomfort. He felt short of breath with exertion. He took a NTG tab and was able to get to sleep last PM. When he woke this AM - the pain was still present and he continued to feel SOB with movement. Patient denies any sense of palpitations,
racing heartbeat, etc. He monitored his pulse with a watch / fitness tracker and noted that his heart rate was fast and irregular.
He presented to the ED for further evaluation and was noted to be in SVT with heart rates in the 130s.
ED reviewed the case with Cardiology and patient was started on Tikosyn with his first dose given in the ED.
Ass:
Atrial Fibrillation / Flutter with Rapid Ventricular Response - Recurrent
Abnormal Troponin - Suspected Non-Ischemic Myocardial Injury
ASCVD (CAD, Carotid Disease, PAD)
Benign Hypertension
DM-II
CKD III
COPD without Acute Exacerbation
GERD
Generalized Anxiety
Plan:
Admit to IVU for further evaluation and treatment.
Tikosyn started in the ED - continue BID.
Metoprolol 25mg PO q6 per Cardiology recommendations.
Follow for improvement in heart rates / other changes.
Monitor for any significant QT changes, new arrhythmias / etc.
Cardiology consulted for additional recommendations.
Follow troponin to peak and monitor for any recurrent chest pain.
Continue usual outpatient medications - excepting oral hypoglycemics.
Original Note:
Family Physician
-
Family Physician: Ismael Holt
Chief Complaint
-
chest pain
History of Present Illness
68-year-old with past medical history for CAD, COPD, CVA, GERD, hypertension, hyperlipidemia, diabetes, peripheral artery disease presented to us with right chest pain across the chest since yesterday. Mild short of breath with activity. Took
nitro at night which relieved his chest pain. He woke up with chest pain again today. He felt very weak and tired for past few days. His checked his heart rate was fast. She also did an EKG which was irregular. Patient complained of
headache. Patient denied fever or chills, runny nose, congestion, cough. Patient denied any abdominal pain, nausea, Vomiting, diarrhea. Patient denied dysuria hematuria.
on arrival patient was in atrial fib with RVR. gave a dose of Cardizem. Tikosyn ordered. admitting for further management.
Medical History
Past Medical History
Past Medical History: Reports Other
Additional Past Medical History:
b/l carotid artery stenosis
dyslipidemia
depression
CKD stage 3a
COPD
htn
type 2DM
GERD
Past Surgical History: Reports Other
Additional Past Surgical History:
s/p right coronary artery stent
left knee replacement
b/l carotid stent
hernia repair
Social History
Tobacco: Former Smoker
Alcohol: Occasional
Drug: None
Personal:
Living: With Family
Family History
Family History: Not pertinent
Allergies / Home Medications
Allergies reflects when Allergies were last updated in [facility].
Home Medications with original date entered in [facility]
Allergy/Medication List:
Allergies
Allergy/AdvReac Type Severity Reaction Status Date / Time
hydromorphone HCl Allergy ONLY Verified 02/29/24 18:01
[From Dilaudid] NAUSEA,
HAS HAD IT
SINCE [place]
simvastatin [From Zocor] Allergy muscle Verified 02/29/24 18:01
cramps
Home Medications
pantoprazole 40 mg tablet,delayed release (Protonix) 40 mg PO DAILY GERD 09/26/14
omega-3s 600 ua-zyq-gij-other [id number] oil 1,200 mg capsule 1 ea PO BID Supplement 03/10/18
aspirin 81 mg chewable tablet (Bean Chewable Low Dose Aspirin) 81 mg PO DAILY Blood clot prevention/tx 08/09/21
fluoxetine 20 mg capsule 20 mg PO DAILY Mental Health/Anxiety 08/09/21
nitroglycerin 0.4 mg sublingual tablet 0.4 mg sublingual [id number] PRN chest pain ##75 08/09/21
empagliflozin 10 mg tablet (Jardiance) 10 mg PO DAILY #30 tabs 11/14/22
albuterol sulfate 90 mcg/actuation aerosol inhaler (ProAir HFA) 2 puff inhalation R Q6HPRN PRN sob/wheezing 05/20/23
isosorbide mononitrate 120 mg tablet,extended release 24 hr 120 mg PO DAILY Heart Disease/Condition 05/20/23
metformin 1,000 mg tablet 1,000 mg PO BID@0800,1700 Diabetes 05/20/23
multivitamin 1 tab PO DAILY Supplement 05/20/23
rosuvastatin 20 mg tablet 40 mg PO QPM High Cholesterol 05/20/23
acetaminophen 650 mg tablet,extended release 650 mg PO QIDPRN PRN mild pain 02/04/24
calcium carbonate (Tums) 200 mg PO BIDPRN PRN gerd 02/04/24
furosemide 40 mg tablet 40 mg PO DAILY Fluid Retention/Swelling 02/04/24
gabapentin 600 mg tablet 600 mg PO DAILYPRN PRN mild pain 02/04/24
glimepiride 2 mg tablet 2 mg PO QPM Diabetes 02/04/24
insulin glargine 100 unit/mL (3 mL) subcutaneous pen (Basaglar KwikPen U-100 Insulin) 50 unit SC HS Diabetes 02/04/24
sucralfate 1 gram tablet (Carafate) 1 g PO BID Gastrointestinal Issue 02/04/24
metoprolol succinate 25 mg tablet,extended release 24 hr 25 mg PO DAILY #30 tabs 02/05/24
apixaban 5 mg tablet (Eliquis) 5 mg PO BID #60 tabs 02/26/24
Review of Systems
-
Constitutional: Reports No Symptoms
EENT: Reports No Symptoms
Respiratory: Reports Trouble Breathing
Cardiac: Reports Chest Pain
Abdomen/GI: Reports No Symptoms
: Reports No Symptoms
Musculoskeletal: Reports No Symptoms
Skin: Reports No Symptoms
Neurological: Reports No Symptoms
Endocrine: Reports No Symptoms
Hematologic/Lymphatic: Reports No Symptoms
Psych: Reports No Symptoms
Physical Exam
Vital Signs
Vital Signs
Temp Pulse Resp BP Pulse Ox
98.9 F 135 20 131/79 98
02/29/24 17:58 02/29/24 18:56 02/29/24 17:58 02/29/24 18:56 02/29/24 17:58
Physical Exam
General: Well Developed, Well Nourished and No Apparent Distress
HEENT: NormoCephalic, Moist mucous membranes and Atraumatic
Respiratory: Clear
Cardiac: Irregular Rhythm and Tachycardia; No Murmur or Rub
GI: Soft, Non Tender, Non Distended and Normal Bowel Sounds; No Organomegaly
Rectal: Deferred by Provider
Musculoskeletal: No Clubbing, No Cyanosis and No Edema
Skin: No Rash
Neuro: AO x 3 and Nonfocal/grossly intact
Psych: Calm
Laboratory Results
-
02/29/24 18:18
02/29/24 18:18
Laboratory Results
Total Bilirubin 1.1 mg/dl (0.2-1.3) 02/29/24 18:18
AST 19 U/L (17-59) 02/29/24 18:18
ALT 18 U/L (0-50) 02/29/24 18:18
Alkaline Phosphatase 56 U/L (38-126) 02/29/24 18:18
Troponin I 0.055 ng/ml H* 02/29/24 18:18
Data Reviewed
-
Lab Data: Labs Reviewed by me
Impression/Plan
-
#recurrent atrial fib with RVR
-recent SAGRARIO cardioversion
-Tikosyn continued
-metoprolol 25mg every 6 hours
-eliquis continued
-trend trop
-cardiology consulted
#elevated trop likely demand ischemia
#chest Pain, suspect angina equivalent triggered by rapid a-fib
# h/o Coronary Artery Disease s/p CABG and Stents
-trop 0.055
-no c/of chest pain
-trend trop
# Peripheral Arterial Disease s/p Bilateral Carotid Artery Stents
Cont ASA
#hxt of heart failure
-Lasix continued
# Essential Hypertension
-BP stable
#CKD stage 3a
-cr 1.8
-ctm
#hxt of COPD
=not in acute exacerbation
-albuterol continued
# Hyperlipidemia
Continue Crestor
# Diabetes Mellitus, Type II
Half usual dose of Lantus (25 units HS)
-glimepiride, Jardiance and metformin continued
Monitor sugars and continue coverage insulin
# GERD
Continue Protonix and Carafate
# Anxiety
Continue fluoxetine
DVT proph: Eliquis
Code Status: Full Code
[2024-02-29] MEDS: TIKOSYN 250 MCG PO (20:27)
[2024-02-29 23:15] LABS: Troponin I 0.055 ng/ml
[2024-03-01] VITALS (13 sets, daily range): BP systolic 115–148; BP diastolic 42–91; PULSE 62; BMI 29.1; BMI 28.1
[2024-03-01 00:01] LABS: Glucose - Point of Care 163 mg/dl (70-99)
[2024-03-01] MEDS: LOPRESSOR 25 MG PO ×4 (00:08→20:12)
[2024-03-01] MEDS: LANTUS 0.25 UNITS SC ×2 (00:09→21:43)
[2024-03-01 01:33] LABS: Troponin I 0.056 ng/ml
[2024-03-01 06:09] LABS: Hematocrit 33.1 % (39.0-52.0); Hemoglobin 11.1 g/dL (13.0-18.0); Mean Corp Hgb Conc. 33.5 g/dL (33.0-37.0); Mean Corpuscular Volume 92.5 fL (80.0-94.0); Mean Platelet Volume 9.4 fL (7.4-10.4); Platelet Count 257 10^3/uL (130-400); Red Blood Cell Count 3.58 10^6/uL (4.70-6.10); Red Cell Dist. Width 13.6 % (11.5-14.5); White Blood Cell Count 7.4 10^3/uL (4.8-10.8)
[2024-03-01 06:38] LABS: Blood Urea Nitrogen 23 mg/dl (9-20); Calcium 9.5 mg/dl (8.4-10.2); Carbon Dioxide 30 mmol/L (22-30); Chloride 100 mmol/L (98-107); Estimated Creatinine Clearance 47 ml/min; Glucose 97 mg/dl (70-99); HDL Cholesterol 36 mg/dl; LDL Cholesterol, Calculated 74 mg/dl; Potassium 3.8 mmol/L (3.5-5.1); Sodium 138 mmol/L (135-145); Total Cholesterol 143 mg/dl (50-199); Triglyceride 169 mg/dl (10-149); Very Low Density Lipoprotein 33 mg/dl (0-30); eGFR 46.64
--- NOTE | 2024-03-01 07:40 | W.PN.HOSP.TC ---
Today's Communication/Plan
-
see bold
Assessment / Plan
Assessment / Plan
HPI: 8y M with PMH significant for recently diagnosed A-Fib s/p SAGRARIO and cardioversion on 02/26/24. Patient states that he was feeling well at the time of his discharge that same day. Yesterday, patient noted some right sided chest discomfort. He
felt short of breath with exertion. He took a NTG tab and was able to get to sleep last PM. When he woke this AM - the pain was still present and he continued to feel SOB with movement. Patient denies any sense of palpitations, racing heartbeat,
etc. He monitored his pulse with a watch / fitness tracker and noted that his heart rate was fast and irregular.
He presented to the ED for further evaluation and was noted to be in SVT with heart rates in the 130s.
#New atrial flutter, likely atypical
#Paroxysmal atrial fibrillation
Status post failed SAGRARIO cardioversion on 02/26/2024
Cardiology following, continue Tikosyn loading as per cardiology
Continue Eliquis, metoprolol tartrate 25 mg twice a day
#Chronic obstructive pulmonary disease
Patient reports having dyspnea with activity. This is new since stopping his Daliresp 2 weeks ago.
Will order him Symbicort inhaler here, as well as ipratropium and Xopenex nebs
# Type 2 diabetes
Patient takes glargine 50 units at bedtime, he is ordered 25 units here in case he does not eat as much
Start Premeal insulin 3 units AC 3 times daily, diabetic diet, sliding scale insulin
#Coronary artery disease
Continue aspirin, statin, Imdur
#Heart failure with preserved ejection fraction
Continue Lasix, Jardiance
#Hyperlipidemia
Continue statin
#Obstructive sleep apnea
DVT prophylaxis�Eliquis
Full code
Total time spent to see the patient on the floor, examine the patient, review data and lab results, discuss treatment plan with patient, nursing staff around 50 minutes.
Physical Exam
General: No acute distress
HEENT: Normocephalic, Atraumatic, EOMI, MMM
Respiratory: Clear to Auscultation bilaterally
Cardiac: Normal S1/S2, Regular Rate and Rhythm
GI: Soft, Nontender, Nondistended, Normal Bowel Sounds
Extremities: No Clubbing, Cyanosis, or Edema
Neuro: Nonfocal/Grossly Intact
Psych: Calm, Cooperative
Derm: No Visible lesions
Anticipated Discharge: 24 - 48 hours
Subjective/Interval History
-
Date of Service: March 01, 2024
Patient reports having dyspnea with activity. This is new since stopping his Daliresp 2 weeks ago. His chest pain has resolved. Denies palpitations. No fever, no vomiting.
Objective Data
-
Labs:
Laboratory Results
03/01/24
05:32
WBC 7.4
Hgb 11.1 L
Hct 33.1 L
Plt Count 257
Sodium 138
Potassium 3.8
Chloride 100
Carbon Dioxide 30
BUN 23 H
Creatinine 1.6 H
Glucose 97
Calcium 9.5
Vital Signs:
Vital Signs
Temp Pulse Resp BP Pulse Ox
99.1 F 70 19 127/79 97
03/01/24 05:36 03/01/24 05:00 03/01/24 05:00 03/01/24 00:05 03/01/24 05:36
[2024-03-01] MEDS: PROZAC 20 MG PO (07:46)
[2024-03-01] MEDS: LASIX 40 MG PO (07:46)
[2024-03-01] MEDS: ASPIR LOW (ENTERIC COATED) 81 MG PO (07:46)
[2024-03-01] MEDS: PROTONIX 40 MG PO ×2 (07:46→20:14)
[2024-03-01] MEDS: ELIQUIS 5 MG PO ×2 (07:46→20:12)
[2024-03-01] MEDS: CARAFATE 1 GRAM PO ×2 (07:46→20:14)
[2024-03-01] MEDS: JARDIANCE 10 MG PO (07:48)
[2024-03-01 07:49] LABS: Glucose - Point of Care 90 mg/dl (70-99)
[2024-03-01] MEDS: NOVOLOG FLEXPEN-LOW RESISTANCE SC (07:50)
--- NOTE | 2024-03-01 08:28 | W.CARD.TIKOS ---
Initiate Tikosyn
-
I verify that the patient has not taken any verapamil (Isoptin/Calan), ketoconazole (Nizoral), cimetidine (Tagamet), trimethoprim (Trimpex), trimethoprim/sulfamethoxazole (Bactrim), megesterol (Megace), prochlorperazine (Compazine),
hydrochlorothiazide (HCTZ), dolutegravir (Tivicay) or any Class I or Class III anti-arrhythmic within the last three days
AND
I verify that the patient has not taken amiodarone within the last THREE months, or that the patient's amiodarone plasma concentration is <0.3 mcg/mL.
Creatinine 1.6 mg/dL (0.7-1.3) H 03/01/24 05:32
Estimated Creat Clear 47 ml/min 03/01/24 05:32
Does patient have a Ventricular Conduction Abnormality: No
I have assessed the baseline QTc interval (using QT for heart rate less than 60 bpm) and deemed the patient is appropriate for Dofetilide therapy. I understand that Tikosyn is contraindicated if the QTc is >440msec (500msec in patients with
ventricular conduction abnormalities).
Baseline QTc (in msec): 380
QTc in fluter is not easily measures and over estimated on EKG computer analysis
QTc in sinus on 02/25/2024 was 376. We will use that as his baseline QTc
Ordering Physician: Guille Yousif
--- NOTE | 2024-03-01 08:34 | W.PN.CD ---
Addendum entered and electronically signed by Guille Yousif MD 03/01/24 08:52:
-
-
[id number] is 7 as I saw a comment of a prior stroke.
-
-
Original Note:
Today's Communication / Plan
-
EP consult dictated
Will load with dofetilide
Impression / Plan
-
New AFlutter, likely atypical, paroxysmal and likely AFib as well, per my tele review
- [id number] at least 5 (HFpEF, HTN, age 1, DM, vascular disease)
- Rate came in 2:1 at 130
- No missed Eliquis since just prior to SAGRARIO/DCCV on 02/26/2024
- Plan to load dofetilide and hope cardioversion not needed. Outpatient ablation consult
CAD, prior mi, prior cabg, many stents, severe disease
- Last cath 02/04/2024, LVEDP 24, severe CAD => Med Rx and no renal A. stenosis
HFpEF
- LVEDP on last cath 24
- On Lasix
- On SGLT inhibitor
Sleep apnea
DM
Mixed hyperlipidemia
COPD, significant, recently on Daliresp (roflumilast)
- He has a bit of wheezing on exam
- Says he has tolerated metoprolol in the past
HTN
Subjective:
Comfortable at rest with better rate control
Physical Exam
Vital Signs/Labs
Vital Signs
Temp Pulse Resp BP Pulse Ox
98.6 F 86 20 133/88 94
03/01/24 07:45 03/01/24 07:45 03/01/24 07:45 03/01/24 07:45 03/01/24 07:45
02/29/24 03/01/24 03/02/24
06:59 06:59 06:59
Actual Weight 94.6 kg
03/01/24 05:32
03/01/24 05:32
Triglycerides 169 mg/dl (10-149) H 03/01/24 05:32
LDL Cholesterol, Calc 74 mg/dl 03/01/24 05:32
VLDL Cholesterol, Calc 33 mg/dl (0-30) H 03/01/24 05:32
HDL Cholesterol 36 mg/dl 03/01/24 05:32
LAB Results
02/29/24 02/29/24 03/01/24
18:18 22:38 00:54
Troponin I 0.055 H* 0.055 H* 0.056 H*
Data Reviewed
-
Date of Service: March 01, 2024
[2024-03-01] MEDS: IMDUR (EXTENDED RELEASE) 120 MG PO (09:16)
--- NOTE | 2024-03-01 09:32 | PTCARENOTE ---
Pt spontaneously converted to sinus rhythm. Cardiology aware - continue to load tikosyn.
[2024-03-01] MEDS: XOPENEX HFA 45 MCG INHALER 2 PUFF INH (10:00)
[2024-03-01] MEDS: ATROVENT NEBULES 0.5 MG INH ×3 (10:19→21:03)
[2024-03-01] MEDS: XOPENEX 1.25 MG INHALANT SOLUTION INH ×3 (10:19→21:03)
[2024-03-01] MEDS: SYMBICORT 160/4.5 MCG INHALER 2 PUFF INH ×2 (10:20→21:03)
[2024-03-01] MEDS: TIKOSYN 250 MCG PO ×2 (10:45→20:14)
[2024-03-01 12:50] LABS: Glucose - Point of Care 172 mg/dl (70-99)
[2024-03-01] MEDS: NOVOLOG FLEXPEN-LOW RESISTANCE 1 UNITS SC ×2 (13:40→18:44)
[2024-03-01 16:19] LABS: Glucose - Point of Care 229 mg/dl (70-99)
--- NOTE | 2024-03-01 18:07 | PTCARENOTE ---
Rec'd pt from ED as an ED Hold transfer. Pt AAOx3 w/no c/o CP, but pt dyspneic on exertion. Pt oriented to rm & dinner order placed. Pt's VS stable w/HR in the 70's with pt in NSR on telemetry monitoring. Call [facility]an within reach & no addtl needs at
this time. Plan of care ongoing.
[2024-03-01 18:44] LABS: Glucose - Point of Care 159 mg/dl (70-99)
[2024-03-01] MEDS: NOVOLOG FLEXPEN 3 UNITS SC (18:44)
[2024-03-01] MEDS: CRESTOR 40 MG PO (18:47)
[2024-03-01] MEDS: TYLENOL 1000 MG PO (20:56)
[2024-03-01 21:26] LABS: COVID-19 Antigen Negative (Negative)
[2024-03-01 21:46] LABS: Glucose - Point of Care 185 mg/dl (70-99)
--- NOTE | 2024-03-01 23:50 | PTCARENOTE ---
Pt received at start of shift, HR SR w/ sinus arrhythmia. QTc after dose #3 394. Educated pt on why we are monitoring QTc, pt states understanding. May need further reinforcement. Pt denies any CP, SOB, or lightheadedness/dizziness at this time.
Informed to notify RN if any changes, call [facility] within reach.
Pt w/ 101 fever and PHILIPPE that started around noon. Tylenol administered. Covid/flu swabs ordered - negative.
[2024-03-02] VITALS (9 sets, daily range): BP systolic 101–167; BP diastolic 52–71; PULSE 70; O2SAT 96; BMI 28.1
[2024-03-02 05:22] LABS: Blood Urea Nitrogen 26 mg/dl (9-20); Calcium 9.3 mg/dl (8.4-10.2); Carbon Dioxide 30 mmol/L (22-30); Chloride 98 mmol/L (98-107); Estimated Creatinine Clearance 50 ml/min; Glucose 138 mg/dl (70-99); Magnesium 1.7 mg/dl (1.6-2.3); Phosphorus 4.4 mg/dl (2.5-4.5); Potassium 3.6 mmol/L (3.5-5.1); Sodium 135 mmol/L (135-145)
[2024-03-02 05:33] LABS: Hematocrit 33.2 % (39.0-52.0); Mean Corp Hgb Conc. 33.1 g/dL (33.0-37.0); Mean Corpuscular Hgb 31.3 pg (27.0-31.0); Mean Corpuscular Volume 94.3 fL (80.0-94.0); Mean Platelet Volume 9.6 fL (7.4-10.4); Platelet Count 268 10^3/uL (130-400); Red Blood Cell Count 3.52 10^6/uL (4.70-6.10); Red Cell Dist. Width 13.4 % (11.5-14.5); White Blood Cell Count 5.9 10^3/uL (4.8-10.8)
[2024-03-02 05:44] LABS: Urine Albumin Trace (Neg - Trace); Urine Bilirubin Negative (Negative); Urine Character Clear (Clear); Urine Color Yellow; Urine Glucose 3+ (Negative); Urine Ketone Negative (Negative); Urine Leukocyte Negative (Negative); Urine Nitrite Negative (Negative); Urine Occult Blood Negative (Negative); Urine Specific Gravity 1.005 (<1.030); Urine Urobilinogen Negative (Neg - 1+)
[2024-03-02] MEDS: CARAFATE 1 GRAM PO ×2 (07:30→19:30)
[2024-03-02 07:59] LABS: Glucose - Point of Care 140 mg/dl (70-99)
[2024-03-02] MEDS: ATROVENT NEBULES 0.5 MG INH ×3 (08:48→19:37)
[2024-03-02] MEDS: XOPENEX 1.25 MG INHALANT SOLUTION INH ×3 (08:48→19:37)
[2024-03-02] MEDS: SYMBICORT 160/4.5 MCG INHALER 2 PUFF INH ×2 (08:48→19:37)
[2024-03-02] MEDS: NOVOLOG FLEXPEN-LOW RESISTANCE SC (08:49)
[2024-03-02] MEDS: ELIQUIS 5 MG PO ×2 (08:50→19:30)
[2024-03-02] MEDS: ASPIR LOW (ENTERIC COATED) 81 MG PO (08:50)
[2024-03-02] MEDS: LASIX 40 MG PO (08:50)
[2024-03-02] MEDS: PROTONIX 40 MG PO ×2 (08:51→19:30)
[2024-03-02] MEDS: TIKOSYN 250 MCG PO ×2 (08:51→20:03)
[2024-03-02] MEDS: LOPRESSOR 25 MG PO ×2 (08:51→19:30)
[2024-03-02] MEDS: JARDIANCE 10 MG PO (08:51)
--- NOTE | 2024-03-02 08:51 | W.PN.HOSP.TC ---
Today's Communication/Plan
-
see bold
Assessment / Plan
Assessment / Plan
HPI: 8y M with PMH significant for recently diagnosed A-Fib s/p SAGRARIO and cardioversion on 02/26/24. Patient states that he was feeling well at the time of his discharge that same day. Yesterday, patient noted some right sided chest discomfort. He
felt short of breath with exertion. He took a NTG tab and was able to get to sleep last PM. When he woke this AM - the pain was still present and he continued to feel SOB with movement. Patient denies any sense of palpitations, racing heartbeat,
etc. He monitored his pulse with a watch / fitness tracker and noted that his heart rate was fast and irregular.
He presented to the ED for further evaluation and was noted to be in SVT with heart rates in the 130s.
#New atrial flutter, likely atypical
#Paroxysmal atrial fibrillation
Status post failed SAGRARIO cardioversion on 02/26/2024
Cardiology following, continue Tikosyn loading as per cardiology
Continue Eliquis, metoprolol tartrate 25 mg twice a day
#Chronic obstructive pulmonary disease
Patient reports having dyspnea with activity. This is new since stopping his Daliresp 2 weeks ago.
ERNANDEZ resolved with Symbicort inhaler here, as well as ipratropium and Xopenex nebs
Follow-up with pulmonology outpatient
# Type 2 diabetes
Patient takes glargine 50 units at bedtime, he is ordered 25 units here in case he does not eat as much
Increase Premeal insulin 5 units AC 3 times daily, diabetic diet, sliding scale insulin
#Coronary artery disease
Continue aspirin, statin, Imdur
#Heart failure with preserved ejection fraction
Continue Lasix, Jardiance
#Hyperlipidemia
Continue statin
#Obstructive sleep apnea
DVT prophylaxis�Eliquis
Full code
Total time spent to see the patient on the floor, examine the patient, review data and lab results, discuss treatment plan with patient, nursing staff around 35 minutes.
Physical Exam
General: No acute distress
HEENT: Normocephalic, Atraumatic, EOMI, MMM
Respiratory: Clear to Auscultation bilaterally
Cardiac: Normal S1/S2, Regular Rate and Rhythm
GI: Soft, Nontender, Nondistended, Normal Bowel Sounds
Extremities: No Clubbing, Cyanosis, or Edema
Neuro: Nonfocal/Grossly Intact
Psych: Calm, Cooperative
Derm: No Visible lesions
Anticipated Discharge: Within 24 hours
Subjective/Interval History
-
Date of Service: March 02, 2024
No CP, SOB/palp. ERNANDEZ resolved. No fever, no vomiting.
Objective Data
-
Labs:
Laboratory Results
03/02/24 03/02/24
04:38 04:56
WBC Cancelled 5.9
Hgb Cancelled 11.0 L
Hct Cancelled 33.2 L
Plt Count Cancelled 268
Sodium 135
Potassium 3.6
Chloride 98
Carbon Dioxide 30
BUN 26 H
Creatinine 1.5 H
Glucose 138 H
Calcium 9.3
Vital Signs:
Vital Signs
Temp Pulse Resp BP Pulse Ox
98.2 F 54 18 101/52 95
03/02/24 07:31 03/02/24 04:30 03/02/24 07:31 03/02/24 04:30 03/02/24 07:31
I&O
03/01/24 03/02/24 03/03/24
06:59 06:59 06:59
Intake Total 960 / 960
Balance 960 / 960
[2024-03-02] MEDS: PROZAC 20 MG PO (08:52)
[2024-03-02] MEDS: IMDUR (EXTENDED RELEASE) 120 MG PO (08:56)
[2024-03-02] MEDS: NOVOLOG FLEXPEN 3 UNITS SC ×3 (09:58→18:13)
--- NOTE | 2024-03-02 10:56 | W.PN.CD ---
Today's Communication / Plan
-
Follow ekgs and tele
Home several hours after 6th dose of dofetilide
Impression / Plan
-
PAF/PAatypical Flutter
- In sinus on dofetilide. Just got 4th dose
- No VT/torsades
- QTc OK
- Eliquis
- Outpt ablation consult planned
- modifiable risk factors again reviewed
- Risks of anticoag reviewed
- Drug-drug interactions with tikosyn reviewed => if any med/supplement/even OTC he and know to ask pharmacyst to review
CAD, prior mi, prior cabg, many stents, severe disease
- Last cath 02/04/2024, LVEDP 24, severe CAD => Med Rx and no renal A. stenosis
HFpEF
- LVEDP on last cath 24
- On Lasix
- On SGLT inhibitor
Sleep apnea
DM
Mixed hyperlipidemia
COPD, significant, recently on Daliresp (roflumilast)
- He has a bit of wheezing on exam
- Says he has tolerated metoprolol in the past
HTN
Subjective:
In sinus, feels well.
Physical Exam
Vital Signs/Labs
Vital Signs
Temp Pulse Resp BP Pulse Ox
98.2 F 62 16 101/52 96
03/02/24 07:31 03/02/24 08:45 03/02/24 08:45 03/02/24 04:30 03/02/24 08:45
03/01/24 03/02/24 03/03/24
06:59 06:59 06:59
Actual Weight 94.6 kg 91.4 kg 91.427 kg
03/02/24 04:56
03/02/24 04:38
Magnesium 1.7 mg/dl (1.6-2.3) 03/02/24 04:38
Triglycerides 169 mg/dl (10-149) H 03/01/24 05:32
LDL Cholesterol, Calc 74 mg/dl 03/01/24 05:32
VLDL Cholesterol, Calc 33 mg/dl (0-30) H 03/01/24 05:32
HDL Cholesterol 36 mg/dl 03/01/24 05:32
LAB Results
02/29/24 02/29/24 03/01/24
18:18 22:38 00:54
Troponin I 0.055 H* 0.055 H* 0.056 H*
Physical Exam
Constitutional: No acute distress
EENT: Anicteric
Cardiovascular: Rhythm & rate is regular and Pedal edema is absent
Respiratory: Respiratory effort normal and Lungs clear to auscul.
GI: Soft and Distention absent
Neuro/Psych: AO x 3
Data Reviewed
-
Date of Service: March 02, 2024
[2024-03-02 12:56] LABS: Glucose - Point of Care 191 mg/dl (70-99)
[2024-03-02] MEDS: NOVOLOG FLEXPEN-LOW RESISTANCE 1 UNITS SC ×2 (13:11→18:13)
--- NOTE | 2024-03-02 16:29 | CM ---
CM following for DC planning needs.
Pt.known to CM from prior admissions.
Pt. resides in a private, split level home w/ spouse. Functionally, patient is indep. w/o use of any assisted device. Pt. has a CPAP at home, which he uses regularly.
Pt. has Rx plan and uses [email or web address].
Anticipate DC to home, no needs.
CM to follow.
--- NOTE | 2024-03-02 16:30 | CM ---
Priced Eliquis thru patient's insurance, [facility]: [phone]. Pt. is responsible for 25% of total cost of Eliquis. After he meets his yearly deductible of $545, cost of Eliquis is anticipated to be $141.29. Pt. can use a free 30 d coupon (he did
not use his previously).
Priced Dofetilide thru patient's insurance. Patient is responsible for 50% of total drug cost. Estimated co pay is $207.65/month. Patient CAN USE GoodRx. Printed out coupons for Good[employer] that would bring down cost to $21-29/mo. I provided pt. with
print outs and explained in detail the above.
Will plan to meet w/ spouse as well to notify her of the above.
[2024-03-02 17:37] LABS: Glucose - Point of Care 163 mg/dl (70-99)
--- NOTE | 2024-03-02 17:51 | PTCARENOTE ---
Pt felt 'shakey' this afternoon after neb treatment, SA on monitor, EKG obtained. Pt less shakey now. He ambulated in halls with PT, julissa well.
[2024-03-02] MEDS: CRESTOR 40 MG PO (18:15)
[2024-03-02] MEDS: TYLENOL 1000 MG PO (19:30)
[2024-03-02 22:07] LABS: Glucose - Point of Care 222 mg/dl (70-99)
[2024-03-02] MEDS: LANTUS 0.25 UNITS SC (22:07)
--- NOTE | 2024-03-02 23:43 | PTCARENOTE ---
Pt received start of shift, HR SR/SA w/ occasional PACs. 5th dose of Tikosyn administered: 2 hours later QTc 428. Pt denies any CP, SOB at rest, or lightheadedness/dizziness. Informed to notify RN if any changes, call [facility] within reach.
[2024-03-03 03:15] VITALS: BP 134/58
[2024-03-03] MEDS: TYLENOL 1000 MG PO (03:29)
--- NOTE | 2024-03-03 03:53 | PTCARENOTE ---
Pt used call [facility] to ask for extra blanket. Pt noted to be shivering. Extra blanket procured, temp taken 98.4. Pt then states they feel as if there is 'a bar' going through middle of chest which has been going on for about an hour (Pt states this is
the same as he felt prior to/on initial presentation to ED). Pt states at onset of pain the rating was 2/10 but is now 1/10. PRN tylenol administered and EKG obtained. While hooking pt up to EKG, pt flipping from SA to Afib.
At time of this note, pt back in SA.
[2024-03-03 04:15] LABS: Hematocrit 35.9 % (39.0-52.0); Hemoglobin 11.8 g/dL (13.0-18.0); Mean Corp Hgb Conc. 32.9 g/dL (33.0-37.0); Mean Corpuscular Hgb 30.8 pg (27.0-31.0); Mean Corpuscular Volume 93.7 fL (80.0-94.0); Mean Platelet Volume 9.5 fL (7.4-10.4); Platelet Count 308 10^3/uL (130-400); Red Blood Cell Count 3.83 10^6/uL (4.70-6.10); Red Cell Dist. Width 13.3 % (11.5-14.5); White Blood Cell Count 5.6 10^3/uL (4.8-10.8)
[2024-03-03 04:25] VITALS: BP 128/78
[2024-03-03 04:39] LABS: Blood Urea Nitrogen 24 mg/dl (9-20); Calcium 9.7 mg/dl (8.4-10.2); Carbon Dioxide 28 mmol/L (22-30); Chloride 100 mmol/L (98-107); Estimated Creatinine Clearance 47 ml/min; Glucose 142 mg/dl (70-99); Potassium 3.9 mmol/L (3.5-5.1); Sodium 137 mmol/L (135-145); eGFR 46.64
[2024-03-03] MEDS: LOPRESSOR 25 MG PO (05:11)
--- NOTE | 2024-03-03 05:38 | PTCARENOTE ---
Pt used call catalan to ronaldo RN, Pt sitting on side of bed stating they 'do not feel good at all'. pt c/o worsening CP 3/10 in middle of chest, pt observed to be belching repeatedly. HR on tele monitor a-fib. SPO2 96% RA. Pt denies any SOB or other
respiratory distress. MARE Taveras notified and at bedside to assess pt. Pt back in SR/SA, pt states CP is completely gone and feels much better. Pt refusing any respiratory treatments at this time. 0800 Lopressor administered early per RONDA Taveras.
[2024-03-03 06:00] VITALS: BMI 27.8
[2024-03-03 07:18] VITALS: BP 121/71
[2024-03-03 07:21] LABS: Glucose - Point of Care 165 mg/dl (70-99)
[2024-03-03] MEDS: XOPENEX 1.25 MG INHALANT SOLUTION INH ×2 (07:25→13:35)
[2024-03-03] MEDS: SYMBICORT 160/4.5 MCG INHALER 2 PUFF INH (07:25)
[2024-03-03] MEDS: ATROVENT NEBULES 0.5 MG INH (07:25)
--- NOTE | 2024-03-03 08:00 | PTCARENOTE ---
Assumed care of pt this AM from prev nsg shift. Pt AAOx3 w/no c/o CP or SOB. Pt continues to be SB/SR on telemetry monitoring. Pt afebrile this AM. Pt VS stable w/HR in the 60's & BP mildly elevated at 152/81. MD aware. Pt w/call catalan within reach &
plan of care ongoing.
[2024-03-03] MEDS: CARAFATE 1 GRAM PO (08:03)
[2024-03-03] MEDS: NOVOLOG FLEXPEN 3 UNITS SC (09:07)
[2024-03-03] MEDS: ASPIR LOW (ENTERIC COATED) 81 MG PO (09:08)
[2024-03-03] MEDS: NOVOLOG FLEXPEN-LOW RESISTANCE 1 UNITS SC (09:08)
[2024-03-03] MEDS: LASIX 40 MG PO (09:08)
[2024-03-03] MEDS: PROTONIX 40 MG PO (09:08)
[2024-03-03] MEDS: IMDUR (EXTENDED RELEASE) 120 MG PO (09:09)
[2024-03-03] MEDS: PROZAC 20 MG PO (09:09)
[2024-03-03] MEDS: TIKOSYN 250 MCG PO (09:09)
[2024-03-03] MEDS: ELIQUIS 5 MG PO (09:09)
[2024-03-03] MEDS: JARDIANCE 10 MG PO (09:20)
--- NOTE | 2024-03-03 11:03 | W.PN.CD ---
Today's Communication / Plan
-
- Stable for discharge
- plan for ablation consult in 1-2 weeks.
Impression / Plan
-
PAF/Atypical Flutter
- In sinus on dofetilide. s/p 6th dose
- Went back to AF yesterday and was sinus this AM. - possible Tikosyn failure.
- No VT/torsades
- QTc OK
- Eliquis
- Outpt ablation consult planned
- modifiable risk factors again reviewed
- Risks of anticoag reviewed
- Drug-drug interactions with tikosyn reviewed => if any med/supplement/even OTC he and know to ask pharmacist to review
CAD, prior mi, prior cabg, many stents, severe disease
- Last cath 02/04/2024, LVEDP 24, severe CAD => Med Rx and no renal A. stenosis
HFpEF
- LVEDP on last cath 24
- On Lasix
- On SGLT inhibitor
Sleep apnea
DM
Mixed hyperlipidemia
COPD, significant, recently on Daliresp (roflumilast)
- He has a bit of wheezing on exam
- Says he has tolerated metoprolol in the past
HTN
Subjective:
In sinus, feels well.
Physical Exam
Vital Signs/Labs
Vital Signs
Temp Pulse Resp BP Pulse Ox
98.1 F 70 18 121/71 97
03/03/24 07:45 03/03/24 07:30 03/03/24 07:45 03/03/24 07:18 03/03/24 07:45
03/02/24 03/03/24 03/04/24
06:59 06:59 06:59
Actual Weight 91.4 kg 90.5 kg
03/03/24 03:23
03/03/24 03:23
Magnesium 1.7 mg/dl (1.6-2.3) 03/02/24 04:38
Triglycerides 169 mg/dl (10-149) H 03/01/24 05:32
LDL Cholesterol, Calc 74 mg/dl 03/01/24 05:32
VLDL Cholesterol, Calc 33 mg/dl (0-30) H 03/01/24 05:32
HDL Cholesterol 36 mg/dl 03/01/24 05:32
LAB Results
02/29/24 02/29/24 03/01/24
18:18 22:38 00:54
Troponin I 0.055 H* 0.055 H* 0.056 H*
Physical Exam
Constitutional: No acute distress and Comfortable
EENT: Anicteric and Moist mucous membranes
Cardiovascular: Rhythm & rate is regular, Pedal edema is absent, JVD pressure is normal and Systolic murmur absent
Respiratory: Respiratory effort normal and Lungs clear to auscul.
GI: Soft, Flat and Non tender
Neuro/Psych: Alert, Oriented and AO x 3
Data Reviewed
-
Date of Service: March 03, 2024
Medical Decision Making: Reviewed Test Results, Independent Historian Assessment, Test Interpretation and Review of Case with other Provider
EKG: Tracing Personally Visualized and interpreted
Echo: Report Reviewed by me
Labs: Labs Reviewed by me
Old Records: Reviewed
[2024-03-03 11:11] VITALS: BP 116/63
[2024-03-03 11:35] LABS: Glucose - Point of Care 252 mg/dl (70-99)
--- NOTE | 2024-03-03 11:56 | W.PN.HOSP.TC ---
Today's Communication/Plan
-
Cleared by cardiology for discharge today
Assessment / Plan
Assessment / Plan
HPI: 8y M with PMH significant for recently diagnosed A-Fib s/p SAGRARIO and cardioversion on 02/26/24. Patient states that he was feeling well at the time of his discharge that same day. Yesterday, patient noted some right sided chest discomfort. He
felt short of breath with exertion. He took a NTG tab and was able to get to sleep last PM. When he woke this AM - the pain was still present and he continued to feel SOB with movement. Patient denies any sense of palpitations, racing heartbeat,
etc. He monitored his pulse with a watch / fitness tracker and noted that his heart rate was fast and irregular.
He presented to the ED for further evaluation and was noted to be in SVT with heart rates in the 130s.
#New atrial flutter, likely atypical
#Paroxysmal atrial fibrillation
Status post failed SAGRARIO cardioversion on 02/26/2024
Cardiology following, patient loaded with Tikosyn this hospital admission, continue Eliquis, continue metoprolol succinate upon discharge
Patient went into atrial fibrillation yesterday, and was in sinus this morning�possible Tikosyn failure
QTc okay, no VT/torsades
Cleared by cardiology for discharge, follow-up with cardiology in the office for ablation in 1-2 weeks
#Chronic obstructive pulmonary disease
Patient reports having dyspnea with activity. This is new since stopping his Daliresp 2 weeks ago.
ERNANDEZ resolved with Symbicort inhaler here, as well as ipratropium and Xopenex nebs
Follow-up with pulmonology outpatient
# Type 2 diabetes
Patient takes glargine 50 units at bedtime, he is ordered 25 units here in case he does not eat as much
Increase Premeal insulin 5 units AC 3 times daily, diabetic diet, sliding scale insulin
Can resume home regimen upon discharge
#Coronary artery disease
Continue aspirin, statin, Imdur
#Heart failure with preserved ejection fraction
Continue Lasix, Jardiance
#Hyperlipidemia
Continue statin
#Obstructive sleep apnea
DVT prophylaxis�Eliquis
Full code
Physical Exam
General: No acute distress
HEENT: Normocephalic, Atraumatic, EOMI, MMM
Respiratory: Clear to Auscultation bilaterally
Cardiac: Normal S1/S2, Regular Rate and Rhythm
GI: Soft, Nontender, Nondistended, Normal Bowel Sounds
Extremities: No Clubbing, Cyanosis, or Edema
Neuro: Nonfocal/Grossly Intact
Psych: Calm, Cooperative
Derm: No Visible lesions
Anticipated Discharge: Today
Subjective/Interval History
-
Date of Service: March 03, 2024
No chest pain, shortness of breath, palpitations.
Objective Data
-
Labs:
Laboratory Results
03/03/24
03:23
WBC 5.6
Hgb 11.8 L
Hct 35.9 L
Plt Count 308
Sodium 137
Potassium 3.9
Chloride 100
Carbon Dioxide 28
BUN 24 H
Creatinine 1.6 H
Glucose 142 H
Calcium 9.7
Vital Signs:
Vital Signs
Temp Pulse Resp BP Pulse Ox
98.5 F 62 18 116/63 94
03/03/24 11:20 03/03/24 11:11 03/03/24 11:20 03/03/24 11:11 03/03/24 11:20
I&O
03/02/24 03/03/24 03/04/24
06:59 06:59 06:59
Intake Total 960 / 960 1080 / 1080 480 / 480
Balance 960 / 960 1080 / 1080 480 / 480
--- NOTE | 2024-03-03 11:57 | CM ---
CM following for DC planning needs.
Met w/ patient at bedside. He is anticipating DC later today then returning in several weeks for a procedure.
Call to [facility]-they have limited supply of Tikosyn available. TT to [facility] for x3 d supply of Tikosyn Rx.
There are no DC needs anticipated.
CM to cont. to follow.
--- NOTE | 2024-03-03 11:59 | W.DCSUMMARY ---
Discharge Summary
Discharge Data
Date of Admission: 02/29/24
Date of Discharge: 03/03/24
-
Pending Results: No
Hospital Course
Discharge diagnoses:
New atrial flutter, likely atypical
Paroxysmal atrial fibrillation
Chronic obstructive pulmonary disease
Type 2 diabetes
Coronary artery disease
Heart failure with preserved ejection fraction
Hyperlipidemia
Obstructive sleep apnea
Consults: Cardiology
Hospital course:
68-year-old male with a past medical history of atrial fibrillation status post SAGRARIO cardioversion on 02/26/2024 was admitted for paroxysmal atrial fibrillation. Patient was seen in conjunction with cardiology. He was loaded with Tikosyn. He was
continued on metoprolol succinate.
Patient also has COPD. He stopped his Daliresp 2 weeks ago at home. He complains of dyspnea with activity. He was treated with Symbicort, ipratropium, and Xopenex. His breathing returned to baseline. He has been instructed to follow-up with
pulmonology in the office.
Patient did go back into atrial fibrillation on the evening of 03/02. Cardiology wonders if this is a Tikosyn failure. In either case, he did flip back into normal sinus rhythm. His QTc is fine, there is no VT or torsades. He is continued on
Eliquis for anticoagulation. He is medically stable and cleared by cardiology for discharge. He can continue Tikosyn and metoprolol succinate upon discharge. He can follow-up with cardiology in the office for ablation in 1-2 weeks.
Disposition: Home self-care
Discharge planning: Required 37 minutes
Discharge Plan
-
Patient Disposition: Home (Routine Discharge)
Discharge Diagnosis/Procedures: Rapid atrial fibrillation, chronic obstructive pulmonary disease
Condition: Good
Diet: Diabetic, Carb Controlled
Activity: As tolerated
Activity Restrictions/Additional Instructions:
Please follow-up with your primary care doctor in 1 week, cardiology as directed, and your concession attendant in 2-3 weeks.
Referrals:
Ismael Holt DO [Family Provider] - in one week
Tenisha Ramon NP [Specified Professional Personl] - 03/11/24 9:00 am
Vinayak Ornelas MD [Active] - 03/25/24 1:20 pm
()
Prescriptions:
New
dofetilide 250 mcg Capsule
250 mcg PO Q12 Qty: 60 0RF
levalbuterol tartrate [Xopenex HFA] 45 mcg/actuation Hfa Aerosol Inhaler
2 puff inhalation R Q4HPRN PRN (Reason: SOB/wheezing) Qty: 1 0RF
budesonide-formoterol [Symbicort] 160-4.5 mcg/actuation Hfa Aerosol Inhaler
2 puff inhalation R BID Qty: 1 0RF
Continued
pantoprazole [Protonix] 40 MG tablet,delayed release (DR/EC)
40 mg PO BID
fluoxetine 20 MG capsule
20 mg PO DAILY
nitroglycerin 0.4 MG tablet, sublingual
0.4 mg sublingual [id number] PRN (Reason: chest pain) Qty: 75 3RF
Jardiance 10 mg Tablet
10 mg PO DAILY Qty: 30 2RF
Hold Instructions: Resume on 05/25/23.
multivitamin Tablet
1 tab PO DAILY
isosorbide mononitrate 120 mg tablet extended release 24 hr
120 mg PO DAILY
metformin 1,000 MG tablet
1,000 mg PO BID
Hold Instructions: Resume on 02/08/24.
gabapentin 600 mg Tablet
600 mg PO DAILYPRN PRN (Reason: mild pain)
sucralfate [Carafate] 1 gram Tablet
1 g PO BID
glimepiride 2 mg Tablet
2 mg PO QPM
insulin glargine [Basaglar KwikPen U-100 Insulin] 100 unit/mL (3 mL) Insulin Pen
50 unit SC HS
calcium carbonate [Tums] 200 mg calcium (500 mg) Tablet,Chewable
200 mg PO BIDPRN PRN (Reason: gerd)
furosemide 40 mg tablet
40 mg PO DAILY
metoprolol succinate 25 mg Tablet Extended Release 24 Hr
25 mg PO DAILY Qty: 30 0RF
Eliquis 5 mg Tablet
5 mg PO BID Qty: 60 0RF
aspirin 81 mg Tablet,Delayed Release (Dr/Ec)
81 mg PO DAILY
acetaminophen [Tylenol Extra Strength] 500 mg Tablet
1,000 mg PO QID PRN (Reason: mild pain)
rosuvastatin 40 mg Tablet
40 mg PO QPM
omega 8-nee-idk-fish oil [Fish Oil] 1,000 mg (120 mg-180 mg) Capsule
1 cap PO BID
Discontinued
albuterol sulfate 90 mcg/actuation Hfa Aerosol Inhaler
2 puff INHALATION R Q6HPRN PRN (Reason: sob)
Discharge Orders:
Discharge Patient (As Directed); Ordered 03/03/24
Ordered By: [place]
Care Plan Goals
Care Plan Goals:
Problem: Readiness for enhanced knowledge related to diagnosis and treatment plan
Goal: Understand your diagnosis and treatment plan needs, including medications if applicable.
Instructions: Know your diagnosis, underlying causes and treatment plan options, including medications if applicable. Consult with your health care team to learn about your diagnosis and treatment plan, including medications if applicable.
Discharge Date and Time
Discharge Date/Time: 03/03/24 14:35
Print Language: GRENADIAN
[2024-03-03] MEDS: ATROVENT NEBULES INH (13:34)
[2024-03-03] MEDS: NOVOLOG FLEXPEN SC (13:50)
[2024-03-03] MEDS: NOVOLOG FLEXPEN-LOW RESISTANCE SC (13:51)
--- NOTE | 2024-03-03 14:30 | PTCARENOTE ---
Pt D/C'd to w/spouse providing transportation. Pt left w/personal belongings, incl cell phone & prescriptions, also incl 2 days of PO Tikosyn from pharmacy. Pt transported out via wheelchair by staff.
== END 2024-03-03 14:35 | disposition home or self-care (01) | DRG 309 ==
LOC: IVU 21:00
PROVIDERS: Physician Assistant Medical; Registered Nurse; ADMITTING PHYSICIAN Hospitalist; ATTENDING PHYSICIAN Family Medicine; CONSULT PHYSICIAN Internal Medicine Cardiovascular Disease; EMERGENCY PHYSICIAN Student in an Organized Health Care Education/Training Program; FAMILY PHYSICIAN Internal Medicine
DX: I48.0 Paroxysmal atrial fibrillation (principal); I13.0 Hypertensive heart and chronic kidney disease with heart failure and stage 1 through stage 4 chronic kidney disease, or unspecified chronic kidney disease; I50.30 Unspecified diastolic (congestive) heart failure; I5A Non-ischemic myocardial injury (non-traumatic); N17.9 Acute kidney failure, unspecified; I48.92 Unspecified atrial flutter; N18.31 Chronic kidney disease, stage 3a; E11.22 Type 2 diabetes mellitus with diabetic chronic kidney disease; E11.51 Type 2 diabetes mellitus with diabetic peripheral angiopathy without gangrene; J44.9 Chronic obstructive pulmonary disease, unspecified; F41.1 Generalized anxiety disorder; K21.9 Gastro-esophageal reflux disease without esophagitis; I25.10 Atherosclerotic heart disease of native coronary artery without angina pectoris; Z95.1 Presence of aortocoronary bypass graft; E78.2 Mixed hyperlipidemia; Z11.52 Encounter for screening for COVID-19
CPT/HCPCS: 80048; 80053; 80061; 81003; 82962; 83735; 84100; 84484; 85025; 85027; 87502; 87811; 93005; 94640; 97116; 97162; 97530; 99285

== ENCOUNTER 2024-04-04 06:04 | Day surgery (SDC) | payer MEDICARE, OTHER, SELFPAY ==
[2024-03-31 08:46] VITALS: BMI 30.3
[2024-04-04] VITALS (9 sets, daily range): BP systolic 140–165; BP diastolic 63–83
[2024-04-04 06:52] LABS: Glucose - Point of Care 167 mg/dl (70-99)
[2024-04-04] MEDS: DUONEB 3 ML INH (07:31)
[2024-04-04 08:50] LABS: ACT-LR - POC 337 Seconds (116-155)
[2024-04-04 09:15] LABS: ACT-LR - POC 321 Seconds (116-155)
[2024-04-04 09:34] LABS: ACT-LR - POC 277 Seconds (116-155)
[2024-04-04 10:31] LABS: Glucose - Point of Care 138 mg/dl (70-99)
[2024-04-04] MEDS: TYLENOL 650 MG PO (10:52)
--- NOTE | 2024-04-04 12:24 | W.PN.UPDATE ---
Update Note
Progress Note Update
Pt seen post PVI. Right groin with vascade closure, no ht/bleeding. OOB ambulating, urinating without difficulty. Post EKG NSR 60s, no acute changes. Resume eliquis today and continue other meds as before. Followup at [facility] arranged. Home today if
groin site/tele remain stable.
--- NOTE | 2024-04-04 14:44 | ITS.CL.ABL ---
[facility] - Ablation
Ablation
Procedure Report:
AFIB ablation:
Mr. Cervantes is a very pleasant 64 yr old gentleman with medical history significant for symptomatic paroxysmal atrial fibrillation failed tikosyn who is here in the EP lab for atrial fibrillation ablation
Date of Procedure:
04/04/2024
Indications:
Symptomatic atrial fibrillation
Pre-Operative Diagnosis:
Paroxysmal Atrial fibrillation
Post-Operative Diagnosis:
Paroxysmal Atrial fibrillation
Procedure Performed:
Atrial fibrillation ablation with wide area circumferential ablation (WACA) approach for pulmonary vein isolation
Performing Physician:
Vinayak Ornelas MD
Assistants:
EP staff
Anesthesia:
See anesthesia records
Detailed Description of the Procedure:
Written informed consent was obtained from the patient after a full explanation of the risks and benefits of the procedure including the risks of sedation and anesthesia.
The patient was brought to the electrophysiology laboratory in stable condition in fasting state. Continuous electrocardiographic and hemodynamic monitoring was initiated.
The initial rhythm was normal sinus rhythm.
The procedure site was meticulously prepared with surgical scrub and allowed to dry with no pooling. Sterile draping was applied to cover the procedure site. The image intensifier was draped with sterile bag and positioned over the patient. After
infusion of local anesthetic, vascular access was obtained under ultrasound guidance and sheaths were placed over guide wire as detailed below.
Sheath and Catheter Placement:
In the right femoral vein, an 8-Welsh sheath was placed for use during the ablation procedure. A second 9-Fr sheath was placed for use during intracardiac echo procedure.
The sheaths were upgraded as needed during the case. Intracardiac catheters were positioned using direct fluoroscopic guidance.� ICE catheter was placed in RA. The following catheters / sheaths were placed
Sheaths:
��������������� Agilis sheath in right femoral vein upgraded from 8Fr in right femoral vein
��������������� 9Fr in right femoral vein
Catheters:
������������� [employer] Thermacool STSF bidirectional (D/F) - at locations of HRA, RV, LA and LV.
������������� Pentaray catheter � at locations of RA and LA
������������� ICE catheter - at locations of RA, SVC, and RV.
Intracardiac ECHO:
An 8-Welsh AcuNav intracardiac ECHO (ICE) probe was advanced through the 9-Welsh sheath in the femoral vein into the right atrium under fluoroscopic and ICE ultrasound image guidance and a baseline ECHO study was performed. The left atrial size
was normal. There was trace tricuspid regurgitation. The aortic valve was grossly normal. There was normal left ventricular size and function. There was a trace pericardial effusion. The CANDI has normal velocities noted on Doppler. All the four veins
were identified and good flow noted.
During the procedure, ICE was used for monitoring of complications, guidance of trans-septal puncture, monitor the catheter position and tracking ablation lesions. No change in the pericardial space noted throughout the procedure.
Trans-septal Puncture:
Heparin was initiated and infused to maintain appropriate ACT.
A J-tipped guidewire was advanced through the 8-Welsh sheath in the right femoral vein into the superior vena cava under fluoroscopic and ICE guidance. The 8-Welsh sheath was exchanged for an Agilis sheath which was advanced into the superior vena
cava. A BRK needle was advanced until the tip was slightly behind the tip of the dilator inside the Agilis. The apparatus was withdrawn until it was in contact with the fossa ovalis. The position was adjusted based on fluoroscopy and ultrasound
images from ICE. Under fluoroscopic, hemodynamic and ICE ultrasound guidance, left atrium was cannulated by advancing the needle. Once atrial septum was cannulated, the needle was pulled back and a BMW guide wire was advanced through the needle into
the left atrium. The guide wire was advanced into the left superior pulmonary vein. Both the sheath and the dilator was advanced into the left atrium. The dilator with the needle was withdrawn. Blood was aspirated from the Agilis sheath and arterial
blood confirmed. The sheath was flushed. Saline injection noted into the left atrium on ICE. The pressure waveform was checked ad LA pressure measured. The penta-ray catheter was advanced in the Agilis sheath into the left pulmonary vein.
The 3-D mapping was done and then the penta-ray was switched to ablation catheter and back to penta-ray as needed.
3D Electroanatomic Mapping:
Using the Pentaray catheter advanced through Agilis sheath into the left atrium, an electroanatomic map (EAM) of the left atrium was created using [employer] Carto mapping system. The map was used for localization of catheter position and
tacking of ablation lesions. The EAM of the left atrium showed 4 pulmonary veins with all four electrically connected to the body the LA. It showed no significant scar on the posterior wall of the LA. The LA was normal in size.
Following the EAM, preparations were made for ablation.
Phrenic nerve stimulation attempt:
The right sided pulmonary veins were identified and the anterior antrum and the deep anterior locations of the PVs were check with high output stimulation that showed no phrenic nerve capture in any of the potential ablation areas. The whole of the
anterior wall was mapped and the deep veins were also tested and once no sign of phrenic capture noted, a design line was created through the areas of tested antral myocardium for ablation lesions.
Ablation:
Pulmonary vein Isolation:
Radiofrequency ablation was performed using an open irrigation, force-sensing 3.5mm radiofrequency ablation catheter ([employer] STSF) by completing the circumferential lesions around the left and right pulmonary veins achieving pulmonary vein
isolation.
All the ablation lesions were guided by the [employer] SURPOINT module with the posterior lesions were limited to 45 saldaña for SURPOINT lesion index goal of 400 and anterior wall lesions were limited to SURPOINT index goal of 450.
The esophagus was noted to be on the left side of the LA near the PV antra based on the locations of the esophageal temperature probe. Ablation was stopped for any temperature increase of 0.1 degree C. Max esophageal temperature was 37.3C� (baseline
36)
EP study / Confirmation of the PVI and bidirectional block:
Following achievement of entrance block at the pulmonary veins, pacing from the pentaray catheter in each of the four veins at 10 milliamps for 2 milliseconds showed entrance and exit block. All PVI were rechecked at the end of the case and remained
isolated with dissociated and local capture with pacing. Entrance and exit block were demonstrated in all veins.
The LA was mapped with Carto EAM in sinus rhythm confirming the line of block at the ablation lesions lines.
Sinus Node Function: The sinus node functions are within acceptable normal range.
The AV krzysztof functions are deemed within normal range.
The mitral annulus was mapped and no sign of accessory pathway was noted.
Arrhythmia Induction:
No sustained arrhythmia was induced at the end of the study.�
Procedure End
ICE study was done again that showed no epicardial accumulation. No complications noted.
Following the completion of the EP study, catheters were removed. Protamine 50 mg was given at the end of the procedure and ACT was checked repeatedly. The sheaths were removed and hemostasis achieved with �figure of 8 suture� and manual compression
after acceptable ACT is achieved.
Left atrial Pressure:
Pre-Procedure: Mean LA pressure was 15mmHg
Post-Procedure: Mean LA pressure was 13mmHg
Post-Procedure: Mean RA pressure was 5mmHg
Estimated Blood loss:
<10 cc
Specimens Removed:
None.
Implants / Devices:
None
Urine output:
None
Packs / Drains/ Tubes:
None
Instrument / Sponge Count Correct:
Yes
Complications of the Procedure:
None
Condition of Patient at Time of Transfer:
Hemodynamically stable with no neurological or vascular compromise.
Summary:
Successful atrial fibrillation ablation with circumferential bidirectional line of block at pulmonary vein antra (Pulmonary vein isolation)
== END 2024-04-04 12:30 | disposition home or self-care (01) ==
LOC: CATH 06:04
PROVIDERS: ATTENDING PHYSICIAN Internal Medicine Cardiovascular Disease; FAMILY PHYSICIAN Internal Medicine; OTHER PHYSICIAN Internal Medicine Cardiovascular Disease
DX: I48.0 Paroxysmal atrial fibrillation (principal); I11.0 Hypertensive heart disease with heart failure; I50.32 Chronic diastolic (congestive) heart failure; I49.5 Sick sinus syndrome; I25.10 Atherosclerotic heart disease of native coronary artery without angina pectoris; Z95.1 Presence of aortocoronary bypass graft; Z95.5 Presence of coronary angioplasty implant and graft; E78.5 Hyperlipidemia, unspecified; E11.9 Type 2 diabetes mellitus without complications; K21.9 Gastro-esophageal reflux disease without esophagitis; J44.9 Chronic obstructive pulmonary disease, unspecified; Z87.891 Personal history of nicotine dependence; Z79.82 Long term (current) use of aspirin; Z79.01 Long term (current) use of anticoagulants; Z79.84 Long term (current) use of oral hypoglycemic drugs; Z79.4 Long term (current) use of insulin
CPT/HCPCS: C1769; C1732; C1766; C1892; C1759; 82962; 85347; 86850; 86900; 86901; 93005; 93656; 94640; C1760

== ENCOUNTER 2024-04-07 22:47 | Emergency (ER) | payer MEDICARE, OTHER, SELFPAY ==
[2024-04-07 22:55] VITALS: BP 149/103
[2024-04-07 23:13] VITALS: BP 143/84
[2024-04-07 23:16] VITALS: BMI 29.1
[2024-04-07 23:19] LABS: % Basophils 0.5 % (0-2); % Eosinophils 3.5 % (0-6); % Immature Granulocytes 0.2 % (0-0.5); % Lymphocytes 27.1 % (20.5-51.1); % Monocytes 9.5 % (1.7-9.3); % Neutrophils 59.2 % (42.2-75.2); Absolute Basophils 0.1 10^3/uL (0-0.2); Absolute Eosinophils 0.3 10^3/uL (0-0.7); Absolute Lymphocytes 2.6 10^3/uL (1.2-3.4); Absolute Monocytes 0.9 10^3/uL (0.1-0.6); Absolute Neutrophils 5.7 10^3/uL (1.4-6.5); Hematocrit 32.6 % (39.0-52.0); Hemoglobin 11.1 g/dL (13.0-18.0); Mean Corpuscular Hgb 30.1 pg (27.0-31.0); Mean Corpuscular Volume 88.3 fL (80.0-94.0); Mean Platelet Volume 9.7 fL (7.4-10.4); Nucleated Red Blood Cells % 0 % (-); Platelet Count 279 10^3/uL (130-400); Red Blood Cell Count 3.69 10^6/uL (4.70-6.10); Red Cell Dist. Width 14.2 % (11.5-14.5); White Blood Cell Count 9.7 10^3/uL (4.8-10.8)
[2024-04-07 23:39] LABS: ALT (SGPT) 15 U/L (0-50); AST (SGOT) 21 U/L (17-59); Albumin 4.1 g/dl (3.5-5.0); Alkaline Phosphatase 73 U/L (38-126); Blood Urea Nitrogen 18 mg/dl (9-20); Calcium 9.6 mg/dl (8.4-10.2); Carbon Dioxide 26 mmol/L (22-30); Chloride 100 mmol/L (98-107); Estimated Creatinine Clearance 58 ml/min; Glucose 218 mg/dl (70-99); Sodium 136 mmol/L (135-145); Total Bilirubin 0.6 mg/dl (0.2-1.3); Total Protein 7.3 g/dl (6.3-8.2); eGFR 59.84
--- NOTE | 2024-04-07 23:52 | ED.GENMED ---
Addendum entered and electronically signed by Brianna Gutierrez MD 04/07/24 23:57:
11:56 PM troponin resulted as elevated at 0.1. Patient remains asymptomatic without chest pain. He also is status post recent ablation. Suspect this elevation is related to postprocedure and RVR� Does not necessitate repeat troponin or further
management here.
Original Note:
History of Present Illness
General
Chief Complaint: Heart Rate Problem
Source: patient and spouse
Time Seen by Provider: 04/07/24 23:31
Travel History
Have you had any contact with someone who has COVID-19?: No
Do you have any symptoms of coronavirus? Fever > 100 degrees, chills, cough, shortness of breath, sore throat, loss of taste or smell, muscle aches, or headache?: No
History of Present Illness
History of Present Illness:
68-year-old male presents emergency department with typical symptoms of when he developed A-fib.. He says was around 8:30 PM tonight he had just walked upstairs and he started burping a lot associated with a feeling of being anxious, pacing around,
just not feeling well, with an elevated heart rate. He also had very mild discomfort without radiation, not pleuritic in nature. He took his usual medications today including Tikosyn and his anticoagulation. Since arrival in the emergency
department, he spontaneously converted to normal sinus rhythm and feels perfectly well. Patient most recently had an ablation and was in normal sinus rhythm status post procedure earlier this week. He denies dizziness, fever, chills, bleeding,
abdominal pain, back pain, dyspnea, or other complaints.
Past History
Past History
ED Past Medical History: CAD, COPD, CVA (History of TIA), GERD, HTN, Hypercholesterolemia, NIDDM and Other (Peripheral arterial disease)
ED Past Surgical History: Cardiac (CABG 2011, PTCA with stent January 2016) and Other (Bilateral carotid stenting 2011, left carotid artery stent 2020, hernia repair, retinal tears bilaterally 2018)
Social History
Tobacco: Former smoker
Alcohol: Daily
Drug: None
Personal:
Living: with family
Employment: Retired
Family History
Family History: Other (reviewed and noncontributory)
Phy Exam
Physical Exam
Physical Exam:
GENERAL: Alert , in no apparent distress
EYE: pupils equal and reactive
NECK: Supple, no significant adenopathy.
ENT: o/p clr, mmm.
CARDIAC: Regular rate and rhythm .
LUNGS: Clear breath sounds bilaterally, no acute respiratory distress, no wheezes/rales/rhonchi
ABDOMEN: Soft, without focal tenderness, no r/g, no cvat
NEUROLOGICAL: Alert and oriented, no focal neuro deficits
SKIN: Warm and dry, skin intact.
MUSCULOSKELETAL: No edema, well perfused.
PSYCH: Normal and appropriate interaction.
Course
Orders/Labs/Results
Orders:
Orders
04/07/24 22:49
Electrocardiogram (*1) Urgent
Reason for Study: Chest Pain
EKG- Treatment ONCE
04/07/24 23:14
Complete Blood Count/With Diff Urgent
Comprehensive Metabolic Panel Urgent
Troponin I Urgent
04/07/24 23:29
Electrocardiogram (*1) Urgent
Reason for Study: Atrial Fibrillation
04/07/24 23:30
EKG- Treatment ONCE
Abnormal Lab Results
04/07/24
23:14
RBC 3.69 L 10^6/uL
(4.70-6.10)
Hgb 11.1 L g/dL
(13.0-18.0)
Hct 32.6 L %
(39.0-52.0)
Absolute Monos (auto) 0.9 H 10^3/uL
(0.1-0.6)
Monocytes % 9.5 H %
(1.7-9.3)
Glucose 218 H mg/dl
(70-99)
04/07/24 23:14
04/07/24 23:14
Vital Signs
Initial and Last Documented VS:
Initial Vital Signs
Temp Pulse Resp BP Pulse Ox
98.3 F 114 16 149/103 99
04/07/24 22:55 04/07/24 22:55 04/07/24 22:55 04/07/24 22:55 04/07/24 22:55
Last Documented Vital Signs
Temp Pulse Resp BP Pulse Ox
98.3 F 73 18 143/84 97
04/07/24 22:55 04/07/24 23:30 04/07/24 23:30 04/07/24 23:13 04/07/24 23:30
*Critical Care Note
Total Time (30-74mins, 75-104mins- exclusive of procedures): Not Applicable
Update Note
Update Note:
Patient presents to the Emergency Department with rapid heartbeat, not feeling well____
Number and Complexity of Problems Addressed at the Encounter
� Chronic conditions affecting care:
� Acute Exacerbation and/or Progression of Chronic Illness:
� Differential Diagnosis includes: Not limited to A-fib, a flutter, SVT, etc. etc.
Amount and/or Complexity of Data to be Reviewed and Analyzed
� I performed an independent evaluation of and my interpretation is:
EKG: Read by me, initial EKG consistent with A-fib with RVR� Repeat EKG consistent with normal sinus rhythm, no acute ischemia
CT:
Xrays:
Laboratory Studies: Troponin pending, baseline anemia, otherwise unremarkable
Other:
� Review of other/old records reveals:
� Clinical information was obtained by an independent historian: who is at bedside
� Prescriptions/Medications Considered but not given:
� Further testing considered but not performed:
Risk of Complications and/or Morbidity or Mortality of Patient Management
� Social determinants of health affecting care:
� Discussion with other providers (PCP, Hospitalists, Consultants, etc):
� Escalation of care including admission/observation vs risk of discharge considered: 11:54 PM patient remains asymptomatic here. I encouraged him to contact cardiology in the morning to allow them to weigh in regarding any
potential medication modifications etc. Patient will remain compliant with his medications and return to the ER if he develops other symptoms.
ED Attending Note
-
Portions of this chart may have been created with voice recognition software.� Occasional wrong word or��sound alike� substitutions may have occurred due to the inherent limitations of voice recognition software.
Discharge Plan
Departure
Patient Disposition: Home (Routine Discharge)
Date of Disposition: 04/07/24
Time of Disposition: 23:54
Patient with high blood pressure during this ER visit?: Yes
Discharge Problem:
Atrial fibrillation with RVR
Instructions: Atrial Fibrillation (DC), BLOOD PRESSURE
Prescriptions:
No Action
pantoprazole [Protonix] 40 MG tablet,delayed release (DR/EC)
40 mg PO BID
fluoxetine 20 MG capsule
20 mg PO DAILY
nitroglycerin 0.4 MG tablet, sublingual
0.4 mg sublingual [id number] PRN (Reason: chest pain) Qty: 75 3RF
Jardiance 10 mg Tablet
10 mg PO DAILY Qty: 30 2RF
Hold Instructions: Resume on 05/25/23.
multivitamin Tablet
1 tab PO DAILY
isosorbide mononitrate 120 mg tablet extended release 24 hr
120 mg PO DAILY
metformin 1,000 MG tablet
1,000 mg PO BID
Hold Instructions: Resume on 02/08/24.
gabapentin 600 mg Tablet
600 mg PO DAILYPRN PRN (Reason: mild pain)
sucralfate [Carafate] 1 gram Tablet
1 g PO BID
glimepiride 2 mg Tablet
2 mg PO QPM
insulin glargine [Basaglar KwikPen U-100 Insulin] 100 unit/mL (3 mL) Insulin Pen
50 unit SC HS
calcium carbonate [Tums] 200 mg calcium (500 mg) Tablet,Chewable
200 mg PO BIDPRN PRN (Reason: gerd)
furosemide 40 mg tablet
40 mg PO DAILY
metoprolol succinate 25 mg Tablet Extended Release 24 Hr
25 mg PO DAILY Qty: 30 0RF
Eliquis 5 mg Tablet
5 mg PO BID Qty: 60 0RF
aspirin 81 mg Tablet,Delayed Release (Dr/Ec)
81 mg PO DAILY
rosuvastatin 40 mg Tablet
40 mg PO QPM
omega 0-zmj-rlq-fish oil [Fish Oil] 1,000 mg (120 mg-180 mg) Capsule
1 cap PO BID
acetaminophen [Tylenol] 325 mg Tablet
650 mg PO Q4HPRN PRN (Reason: mild pain)
Trelegy Ellipta 200-62.5-25 mcg Blister With Device
1 inh INHALATION R DAILY
roflumilast 500 mcg Tablet
500 mcg PO MOWEFR
ipratropium-albuterol 0.5 mg-3 mg(2.5 mg base)/3 mL Solution For Nebulization
3 ml INHALATION R Q6HPRN PRN (Reason: sob/wheezing)
dofetilide 250 mcg capsule
250 mcg PO BID
Referrals:
Ismael Holt DO [Family Provider] -
Activity Restrictions/Additional Instructions:
PLEASE CONTACT YOUR MOLDER FOAM RUBBER IN THE MORNING. CONTINUE HER MEDICATIONS USUAL. IF YOU DEVELOP FEVER, CHILLS, DIZZINESS, CHEST PAIN, SHORTNESS OF BREATH, PALPITATIONS, OR OTHER WORRISOME SIGNS, PLEASE RETURN TO THE ER IMMEDIATELY
Interventions
Interventions:
*Risk Screen - Suicide Last Done: 04/07/24 22:55
*General Assessment Last Done: 04/07/24 23:16
*Neglect/Abuse Screening Last Done: 04/07/24 22:55
*ED COVID-19 Vaccine History Last Done: 04/07/24 22:55
ED- Cardiac Assessment Last Done: 04/07/24 23:16
ED- Pulmonary Assessment Last Done: 04/07/24 23:16
Discharge Date and Time
Print Language: CITIZEN [place]
[2024-04-07 23:55] LABS: Troponin I 0.106 ng/ml
[2024-04-08] VITALS: BP 133/62
== END 2024-04-08 00:19 | disposition home or self-care (01) ==
LOC: EMR 22:47
PROVIDERS: Student in an Organized Health Care Education/Training Program; EMERGENCY PHYSICIAN Emergency Medicine; FAMILY PHYSICIAN Internal Medicine
DX: I48.91 Unspecified atrial fibrillation (principal); I25.10 Atherosclerotic heart disease of native coronary artery without angina pectoris; J44.9 Chronic obstructive pulmonary disease, unspecified; E11.51 Type 2 diabetes mellitus with diabetic peripheral angiopathy without gangrene; E78.00 Pure hypercholesterolemia, unspecified; I10 Essential (primary) hypertension; K21.9 Gastro-esophageal reflux disease without esophagitis; Z95.1 Presence of aortocoronary bypass graft; Z95.5 Presence of coronary angioplasty implant and graft; Z87.891 Personal history of nicotine dependence; Z86.73 Personal history of transient ischemic attack (TIA), and cerebral infarction without residual deficits; Z98.890 Other specified postprocedural states; Z88.5 Allergy status to narcotic agent; Z88.8 Allergy status to other drugs, medicaments and biological substances; Z79.82 Long term (current) use of aspirin; Z79.01 Long term (current) use of anticoagulants
CPT/HCPCS: 99284; 80053; 84484; 85025; 93005

== ENCOUNTER 2024-07-14 09:00 | Outpatient (RCR) | payer MEDICARE, OTHER, SELFPAY | END 2024-07-25 10:02 | disposition home or self-care (01) | LOC: PURB 09:00 | PROVIDERS: ATTENDING PHYSICIAN Internal Medicine Critical Care Medicine; FAMILY PHYSICIAN Internal Medicine | DX: J44.9 Chronic obstructive pulmonary disease, unspecified (principal) | CPT/HCPCS: G0237 ==

== ENCOUNTER 2024-08-25 10:45 | Outpatient (RCR) | payer MEDICARE, OTHER, SELFPAY | END 2024-08-25 15:00 | disposition home or self-care (01) | LOC: PURB 10:45 | PROVIDERS: ATTENDING PHYSICIAN Internal Medicine Critical Care Medicine; FAMILY PHYSICIAN Internal Medicine | DX: J44.9 Chronic obstructive pulmonary disease, unspecified (principal) | CPT/HCPCS: G0239 ==

== ENCOUNTER → 2024-09-06 06:16 | Day surgery (SDC) | payer MEDICARE, OTHER, SELFPAY ==
[2024-09-06 08:00] LABS: Glucose - Point of Care 133 mg/dl (70-99)
== END ==
LOC: GI 06:16
PROVIDERS: ATTENDING PHYSICIAN Specialist
DX: R07.9 Chest pain, unspecified (principal); K22.89 Other specified disease of esophagus; K22.70 Barrett's esophagus without dysplasia
CPT/HCPCS: 43239; 88305; 82962

== ENCOUNTER 2024-09-20 10:45 | Outpatient (RCR) | payer MEDICARE, OTHER, SELFPAY | END 2024-09-24 23:59 | disposition home or self-care (01) | LOC: PURB 10:45 | PROVIDERS: ATTENDING PHYSICIAN Internal Medicine Critical Care Medicine; FAMILY PHYSICIAN Internal Medicine | DX: J44.9 Chronic obstructive pulmonary disease, unspecified (principal) | CPT/HCPCS: G0239 ==

== ENCOUNTER → 2024-09-30 11:00 | Outpatient (REF) | payer MEDICARE, OTHER, SELFPAY | LOC: HWRAD 11:00 | PROVIDERS: ATTENDING PHYSICIAN Internal Medicine Critical Care Medicine; FAMILY PHYSICIAN Internal Medicine | DX: Z87.891 Personal history of nicotine dependence (principal) | CPT/HCPCS: 71271 ==

== ENCOUNTER → 2024-10-01 07:29 | Outpatient (REF) | payer MEDICARE, OTHER, SELFPAY | LOC: RAD 07:29 | PROVIDERS: ATTENDING PHYSICIAN Internal Medicine Cardiovascular Disease; FAMILY PHYSICIAN Internal Medicine | DX: I65.23 Occlusion and stenosis of bilateral carotid arteries (principal); I71.43 Infrarenal abdominal aortic aneurysm, without rupture | CPT/HCPCS: 76770; 93880 ==

== ENCOUNTER 2024-10-25 10:45 | Outpatient (RCR) | payer MEDICARE, OTHER, SELFPAY | END 2024-10-25 23:59 | disposition home or self-care (01) | LOC: PURB 10:45 | PROVIDERS: ATTENDING PHYSICIAN Internal Medicine Critical Care Medicine; FAMILY PHYSICIAN Internal Medicine | DX: J44.9 Chronic obstructive pulmonary disease, unspecified (principal); R06.02 Shortness of breath; R91.8 Other nonspecific abnormal finding of lung field; Z86.16 Personal history of COVID-19 | CPT/HCPCS: G0239 ==

== ENCOUNTER 2024-11-15 10:45 | Outpatient (RCR) | payer MEDICARE, OTHER, SELFPAY | END 2024-11-16 10:43 | disposition home or self-care (01) | LOC: PURB 10:45 | PROVIDERS: ATTENDING PHYSICIAN Internal Medicine Critical Care Medicine; FAMILY PHYSICIAN Internal Medicine | DX: J44.9 Chronic obstructive pulmonary disease, unspecified (principal) | CPT/HCPCS: G0239 ==

== ENCOUNTER 2025-06-10 23:43 | Inpatient (IN) | payer MEDICARE, OTHER, SELFPAY ==
[2025-06-10] VITALS (10 sets, daily range): BP systolic 76–152; BP diastolic 46–131; BMI 22.8
[2025-06-10 22:16] LABS: Hematocrit 33.3 % (39.0-52.0); Hemoglobin 10.8 g/dL (13.0-18.0); Mean Corp Hgb Conc. 32.4 g/dL (33.0-37.0); Mean Corpuscular Volume 84.9 fL (80.0-94.0); Nucleated Red Blood Cells % 0 % (-); Platelet Count 559 10^3/uL (130-400); Red Cell Dist. Width 18.3 % (11.5-14.5)
[2025-06-10] MEDS: DILAUDID 1 MG IV ×2 (22:28→23:15)
[2025-06-10 22:29] LABS: ALT (SGPT) < 10 U/L (0-50); AST (SGOT) 16 U/L (17-59); Albumin 3.6 g/dl (3.5-5.0); Alkaline Phosphatase 51 U/L (38-126); Blood Urea Nitrogen 15 mg/dl (9-20); Calcium 9.6 mg/dl (8.4-10.2); Carbon Dioxide 24 mmol/L (22-30); Chloride 99 mmol/L (98-107); Estimated Creatinine Clearance 91 ml/min; Glucose 133 mg/dl (70-99); Potassium 4.4 mmol/L (3.5-5.1); Sodium 132 mmol/L (135-145); Total Protein 8.0 g/dl (6.3-8.2); eGFR > 60.00
[2025-06-10 22:30] LABS: C-Reactive Protein 71.30 mg/L (0.0-10.00)
[2025-06-10 22:33] LABS: APTT 37.6 Sec (23.4-35.0); INR 1.28; PT 16.3 Sec (11.4-14.6)
--- NOTE | 2025-06-10 22:59 | HPS.HSE ---
Family Physician
-
Family Physician: Ismael Holt
Chief Complaint
-
Right knee wound
History of Present Illness
This is a 69-year-old with past medical history significant for insulin-dependent diabetes, hypertension, hyperlipidemia, COPD, paroxysmal atrial fibrillation on anticoagulation, CAD, history of CVA and knee replacement surgery with chronic wound
dehiscence.
Patient had a right knee arthroplasty in February as told her [facility]. 7 weeks later he developed infection that required a washout and at that time was started on chronic IV antibiotics based on cultures from the wound. He says he has been on
IV nafcillin continuously since then. Approximately 3 weeks ago he had further evaluation of the wound which was not healing and was told he needed reconstructive surgery. He saw a reconstructive surgeon and he had a removal of the prosthetic
device and temporary prosthetic was placed with antibiotic spacer. He also continued on home IV antibiotics. At the time of this procedure there was concerned about wound healing due to local tissue damage and expected poor healing. As expected
the patient continued to have poor wound healing and the wound appears to be opening further. He has not had any fevers or chills. Is reconstructive surgeon recommended wound evaluation at pain. While pending this evaluation on Thursday family
decided to bring him to the emergency department today for fast evaluation due to chronic ongoing drainage and slightly increased pain in that knee.
In the emergency department he was afebrile, blood pressure was 127/51 with a pulse of 75 satting 98% on room air.
White count was 7.2 removing 10.8 mm by count of 550. His electrolytes were stable. BUN and creatinine were normal glucose was normal. Inflammatory markers were elevated with a ESR of 190 CRP of 71.
Medical History
Past Medical History
Past Medical History: Reports Other
Additional Past Medical History:
b/l carotid artery stenosis
dyslipidemia
depression
CKD stage 3a
COPD
htn
type 2DM
GERD
Past Surgical History: Reports Other
Additional Past Surgical History:
s/p right coronary artery stent
left knee replacement
b/l carotid stent
hernia repair
Social History
Tobacco: Former Smoker
Alcohol: Occasional
Drug: None
Personal:
Living: With Family
Family History
Family History: Not pertinent
Allergies / Home Medications
Allergies reflects when Allergies were last updated in [facility].
Home Medications with original date entered in [facility]
Allergy/Medication List:
Allergies
Allergy/AdvReac Type Severity Reaction Status Date / Time
hydromorphone HCl Allergy ONLY Verified 02/29/24 18:01
[From Dilaudid] NAUSEA,
HAS HAD IT
SINCE [place]
simvastatin [From Zocor] Allergy muscle Verified 02/29/24 18:01
cramps
Home Medications
pantoprazole 40 mg tablet,delayed release (Protonix) 40 mg PO DAILY GERD 09/26/14
omega-3s 600 gh-jop-zpk-other [id number] oil 1,200 mg capsule 1 ea PO BID Supplement 03/10/18
aspirin 81 mg chewable tablet (Bean Chewable Low Dose Aspirin) 81 mg PO DAILY Blood clot prevention/tx 08/09/21
fluoxetine 20 mg capsule 20 mg PO DAILY Mental Health/Anxiety 08/09/21
nitroglycerin 0.4 mg sublingual tablet 0.4 mg sublingual [id number] PRN chest pain ##75 08/09/21
empagliflozin 10 mg tablet (Jardiance) 10 mg PO DAILY #30 tabs 11/14/22
albuterol sulfate 90 mcg/actuation aerosol inhaler (ProAir HFA) 2 puff inhalation R Q6HPRN PRN sob/wheezing 05/20/23
isosorbide mononitrate 120 mg tablet,extended release 24 hr 120 mg PO DAILY Heart Disease/Condition 05/20/23
metformin 1,000 mg tablet 1,000 mg PO BID@0800,1700 Diabetes 05/20/23
multivitamin 1 tab PO DAILY Supplement 05/20/23
rosuvastatin 20 mg tablet 40 mg PO QPM High Cholesterol 05/20/23
acetaminophen 650 mg tablet,extended release 650 mg PO QIDPRN PRN mild pain 02/04/24
calcium carbonate (Tums) 200 mg PO BIDPRN PRN gerd 02/04/24
furosemide 40 mg tablet 40 mg PO DAILY Fluid Retention/Swelling 02/04/24
gabapentin 600 mg tablet 600 mg PO DAILYPRN PRN mild pain 02/04/24
glimepiride 2 mg tablet 2 mg PO QPM Diabetes 02/04/24
insulin glargine 100 unit/mL (3 mL) subcutaneous pen (Basaglar KwikPen U-100 Insulin) 50 unit SC HS Diabetes 02/04/24
sucralfate 1 gram tablet (Carafate) 1 g PO BID Gastrointestinal Issue 02/04/24
metoprolol succinate 25 mg tablet,extended release 24 hr 25 mg PO DAILY #30 tabs 02/05/24
apixaban 5 mg tablet (Eliquis) 5 mg PO BID #60 tabs 02/26/24
Review of Systems
-
Constitutional: Reports No Symptoms
EENT: Reports No Symptoms
Respiratory: Reports No Symptoms
Cardiac: Reports Chest Pain
Abdomen/GI: Reports No Symptoms
: Reports No Symptoms
Musculoskeletal: Reports Joint Pain
Skin: Reports Other
Neurological: Reports No Symptoms
Endocrine: Reports No Symptoms
Hematologic/Lymphatic: Reports No Symptoms
Psych: Reports No Symptoms
Physical Exam
Vital Signs
Vital Signs
Temp Pulse Resp BP Pulse Ox
97.6 F 75 26 127/51 99
06/10/25 20:09 06/10/25 22:15 06/10/25 22:15 06/10/25 22:02 06/10/25 22:02
Physical Exam
General: Well Developed, Well Nourished and No Apparent Distress
HEENT: NormoCephalic, Moist mucous membranes and Atraumatic
Respiratory: Clear
Cardiac: Irregular Rhythm and Tachycardia; No Murmur or Rub
GI: Soft, Non Tender, Non Distended and Normal Bowel Sounds; No Organomegaly
Rectal: Deferred by Provider
Musculoskeletal: No Clubbing, No Cyanosis, No Edema and Other (Right knee dehiscence wound, deep ulceration without significant drainage. Surrounding erythema. No obvious cellulitis. )
Neuro: AO x 3 and Nonfocal/grossly intact
Psych: Calm
Laboratory Results
-
06/10/25 22:00
06/10/25 22:00
Laboratory Results
PT 16.3 Sec (11.4-14.6) H 06/10/25 22:00
INR 1.28 06/10/25 22:00
APTT 37.6 Sec (23.4-35.0) H 06/10/25 22:00
Lactic Acid 1.2 mmol/L (0.7-2.0) 06/10/25 22:00
Total Bilirubin 1.3 mg/dl (0.2-1.3) 06/10/25 22:00
AST 16 U/L (17-59) L 06/10/25 22:00
ALT < 10 U/L (0-50) 06/10/25 22:00
Alkaline Phosphatase 51 U/L (38-126) 06/10/25 22:00
Data Reviewed
-
Diagnostic Radiology: Image Personally Visualized and interpreted
Lab Data: Labs Reviewed by me
Old Records: Reviewed
Impression/Plan
-
IMPRESSION:
69-year-old who is referred to wound care here pain after persistent on nonhealing wound dehiscence following right knee arthroplasty @ [facility] in February, complicated by wound washout for infection and more recently temporary joint with abx spacer.
Patient is on chronic nafcillin for this wound. He has no fevers or chills and shows no signs of systemic infection. He does have elevated inflammatory markers. He came in today pending the wound evaluation due to increased pain in the right knee.
PLAN:
Wound -chronic nonhealing wound. Orthopedic surgeon does not require orthopedic intervention at this time. The orthopedic surgeon here Dr. Poon noted that Orthopedics at [place] is not set up to handle problems like this and if any orthopedic
involvement is required the patient will have a transfer to a dietary center at [place]. Patient is unlikely to be transferred back to [facility] because at this time they can handle this wound. Patient is aware notes that if he requires further
surgical intervention he will have to be transferred. Will admit here for wound consult and ID consult. If orthopedic surgery indicated by these consultants, he will have to be transferred to [place],.
- admit to med/surg
- pain control
- continue IV nafcillin per home protocol
- ID consultation
- wound consultation
DM II
- continue metformin for now
- off lantus
- sliding scale insulin
- off glimepiride
AFIB - stable
- continue dofetilide, metoprolol and eliquis
COPD
continue trelegy and prn nebs
CAD - h/o CAD s/p CABG and stents.
- continue asa 81 and eliquis
- imdur
DVT PPX - on eliquis
Code status - Full Code
--- NOTE | 2025-06-10 23:06 | ED.GENMED ---
History of Present Illness
General
Chief Complaint: Skin Problem
Source: patient
Time Seen by Provider: 06/10/25 21:39
Nursing documentation reviewed up to this point in time: agreed with
History of Present Illness
History of Present Illness:
Note:
CHIEF COMPLAINT(S)
Knee infection with poor wound healing.
HISTORY OF PRESENT ILLNESS
The patient is a 69-year-old male with a history of knee surgery performed in February. Approximately seven months post-operation, he developed an infection, which led to a surgical washout. Two weeks following the procedure, the infection persisted,
prompting a knee revision surgery. During the revision, the knee prosthesis was removed, and a medicated spacer was inserted. The surgery was prolonged due to significant friable tissue, complicating wound closure.
The patients stitches were removed on the previous Thursday; however, the wound appeared poor with the presence of new yellow discharge, signaling altered drainage. The patient is scheduled to attend wound care at [facility] on Thursday morning. Previous
attempts by the orthopedic surgeon at [facility], who referred the patient, to manage the condition were not successful.
ADDITIONAL HISTORY OBTAINED FROM SOURCES OTHER THAN THE PATIENT
According to the patients family, the patient has a scheduled wound care appointment at [facility] and has been referred by an orthopedic surgeon from [facility].
CHRONIC MEDICAL CONDITIONS SIGNIFICANTLY AFFECTING CARE
The patient is currently undergoing treatment with vancomycin, delivered via an 8-gram, 24-hour infusion through a peripherally inserted central catheter (PICC) line.
MEDICATIONS
Current medication includes vancomycin via a 24-hour infusion at 8 grams per day administered through a PICC line.
PHYSICAL EXAM
General: Alert, no acute distress.
Skin: Warm, dry.
Head: Normocephalic, atraumatic.
Neck: Supple, trachea midline.
Eye, ears, nose, mouth, and throat: Oral mucosa moist.
Cardiovascular: Normal peripheral perfusion, no edema.
Respiratory: Respirations are non-labored.
Gastrointestinal: Abdomen nondistended.
Back: Normal range of motion, normal alignment.
Musculoskeletal: Normal range of motion, normal strength.
Neurological: Alert and oriented to person, place, time, and situation; no focal neurological deficit observed.
Psychiatric: Cooperative, appropriate mood, and affect.
PROBLEM LIST
Acute:
- Knee infection with poor wound healing and new yellow discharge.
PLAN
Administer pain medication to manage discomfort. Consider hospital admission for pain control and further management. Ongoing consultation with the wound care team at [facility] is scheduled. Administered IV analgesia for immediate pain relief with
options to continue based on response.
DIFFERENTIAL DIAGNOSIS
The Differential Diagnosis includes, in no particular order and is not limited to:
1. Prosthetic joint infection
2. Soft tissue infection
3. Osteomyelitis
4. Non-union of surgical wound
5. Drug-resistant bacterial infection
6. Fungal infection
7. Venous insufficiency
8. Allergic reaction to prosthetic material
9. Abscess formation
10. Necrotizing fasciitis
CARE-UPDATE
06/10/25 - 23:[address] Philly Poon from Orthopedics; patient requires transfer for acute orthopedic care. Patient and family concur, acknowledging admission here for pain management, wound care, and infectious disease consultation. Family aware of
potential care delays if transfer is needed for surgery. Patient currently experiencing pain. No further questions, and patient to be admitted to the hospitalist service.
Disposition:
SUMMARY OF ENCOUNTER
The patient, a 69-year-old male, presented to the emergency department with complaints of increased pain related to a knee wound infection following previous orthopedic surgery in February. The infection has persisted despite interventions, including the
removal of the knee prosthesis and placement of a medicated spacer. The patients current condition is accompanied by significant pain. He is receiving vancomycin antibiotics through a PICC line. The patient reports that IV analgesics administered in
the hospital have provided relief from symptoms. During the emergency department visit, a discussion with Dr. Omid Poon from Orthopedics indicated that the needed orthopedic care is not available at [facility] and may require a tertiary
care center if orthopedic surgery is needed urgently. The patients was informed of the limitations and potential for delay in emergent orthopedic surgery. The patient is scheduled for a wound care consultation at [facility] the
following Thursday.
DISPOSITION
Admit.
ASSESSMENT
The patient is experiencing increased pain due to a persistent knee infection following orthopedic surgery. Current management attempts have been unsuccessful.
EMERGENCY TREATMENTS ADMINISTERED
IV analgesics for pain management.
MANAGEMENT OF THE PATIENTS CARE WAS DISCUSSED WITH
Dr. Omid Poon, Orthopedics. It was advised that the patient may require transfer to a tertiary care center for orthopedic services if surgery becomes necessary.
PLAN
The patient will be admitted for pain management, wound care consultation, and infectious disease consultation.
MEDICAL DECISION MAKING
-Complexity of Data Reviewed: Chronic conditions affecting care include persistent knee infection, prolonged wound healing post-orthopedic surgery, and ongoing antibiotic therapy. Differential diagnoses considered include prosthetic joint infection,
soft tissue infection, osteomyelitis, non-union of surgical wound, drug-resistant bacterial infection, fungal infection, venous insufficiency, allergic reaction to prosthetic material, abscess formation, and necrotizing fasciitis.
-Data:
Category 2: Clinical information was obtained from an independent historian�the patients family confirmed the scheduled wound care appointment and provided additional context on the patients medical history.
Category 3: Management discussion with Dr. Omid Poon from Orthopedics advised the need for potential care at a tertiary center for advanced orthopedic intervention.
-Risk: Prescription drug management is ongoing with vancomycin and IV analgesics. The decision to admit the patient for further management and potential surgical intervention reflects the significant risk of complication and the need for close
monitoring.
DIAGNOSIS
Persistent knee infection post-orthopedic surgery; ICD-10 code T84.56XA (Infection and inflammatory reaction due to internal joint prosthesis).
Past History
Past History
ED Past Medical History: CAD, COPD, CVA (History of TIA), GERD, HTN, Hypercholesterolemia, NIDDM and Other (Peripheral arterial disease)
ED Past Surgical History: Cardiac (CABG 2011, PTCA with stent January 2016) and Other (Bilateral carotid stenting 2011, left carotid artery stent 2020, hernia repair, retinal tears bilaterally 2019)
Social History
Tobacco: Former smoker
Alcohol: Daily
Drug: None
Personal:
Living: with family
Employment: Retired
Family History
Family History: Other (reviewed and noncontributory)
Phy Exam
Physical Exam
Physical Exam:
.
Course
Orders/Labs/Results
Orders:
Orders
06/10/25 20:23
Portable Chest Xray [CR Chest Portable - 1 View] Urgent
Comment:
Reason For Exam: PICC line
Reason Study Needs to be Portable: Patient Unstable
06/10/25 22:00
CRP [C-Reactive Protein] Urgent
Complete Blood Count/With Diff Urgent
Comprehensive Metabolic Panel Urgent
Lactic Acid Q4H
Comment: CANCEL 2nd LACTIC ACID IF 1st LACTIC ACID IS LESS THAN 2
PTT Urgent
Prothrombin Time Urgent
Sed Rate [Erythrocyte Sed Rate] Urgent
Blood Culture Q30M
BALDOMERO Source: Blood/Venous
Specimen Description:
Blood Culture Q30M
BALDOMERO Source: Blood/Venous
Specimen Description:
06/10/25 22:17
HYDROmorphone [Dilaudid] 1 mg IV NOW STA
06/10/25 22:59
HYDROmorphone [Dilaudid] 1 mg IV NOW STA
06/10/25 23:08
Knee, Right 4 or More Views [CR Knee- Right 4 Or More View*] Urgent
Comment:
Reason For Exam: pain, infection
06/10/25 23:27
Admit/Transfer Patient As Directed
Co-Sign Provider:
Level of Care: Inpatient admission
Assign to:: Medical/Surgical
Physician / Group: Madeleine
Diagnosis: Chronic wound dehiscence
Reason for Hospitalization: Wound evaluation
Expected length of stay greater than two midnights?: Yes
ELOS- Estimated Length of Stay in days: 2
I certify the patient meets the requirements for IP care: Yes
PRN Pain Medication Management As Directed
May give lesser potent ordered pain med per pt: Yes
preference::
Protocol:: Medication orders for pain may be administered in a
manner that supports deferring to patient preference
when the pt is:
- Requesting an ordered lesser potent pain medication.
Least to most potent pain medications are defined
as: acetaminophen < NSAID < tramadol < opioids
(morphine, oxycodone, hydromorphone).
- Requesting a lesser dose of the same medication IF
ORDERED.
- Requesting a less intrusive route of administration
if both routes are prescribed by the provider (PO <
IV).
06/10/25 23:29
Code Status As Directed
Resuscitation Status: Full Code
06/11/25 01:24
Acetaminophen [Tylenol] 650 mg PO Q4HPRN PRN
Bisacodyl [Dulcolax] 10 mg RECTAL Q70MEAI PRN
Calcium 200mg(Ca. Carb. 500mg) [Tums Chewable Tablet] 200 mg PO BIDPRN PRN gerd
Docusate W/Senna [Senokot-S] 1 tablet PO BIDPRN PRN
HYDROmorphone [Dilaudid] 1 mg IV Q4HPRN PRN
Ipratropium/Albuterol Sulfate [Duoneb] 3 ml INH R Q6HPRN PRN sob/wheezing
Ondansetron Injectable [Zofran] 4 mg IV Q6HPRN PRN
Oxycodone [Roxicodone] 5 mg PO Q4HPRN PRN
Polyethylene Glycol Powder [Miralax] 17 grams PO DAILYPRN PRN
06/11/25 01:24
Consult Notification Routine
Specialty to Notify: Infectious Disease
Date consulting provider notified: 06/11/25
Time consulting provider notified: 08:14
Notified:: Provider
Comment: TT'd Physician On-Call(Nico)
INFECTIOUS DISEASE CONSULT Routine
Consulting Provider: Aleksander Walsh
Was physician already notified: No
Reason for consult: chronic knee wound infection s/p TKA with abx spacer
WOUND/OSTOMY CONSULT Routine
Reason for Consult: knee dehiscence wound
Wound Care Physician Consult Routine
Consulting Provider: Andrei Ballesteros
Was physician already notified: Yes
Reason for Consult: wound dehiscence s/p R TKA comp by placement of temp knee with abx spacer
Date consulting provider notified: 06/11/25
Time consulting provider notified: 09:39
Notified:: Provider
Comment: TT'd Provider(Favian)
VTE Contraindication Routine
VTE Mechanical Device Contraindication: Medical Contraindication
Pharmocologic Contraindication: Medical Contraindication
Activity As Directed
Activity Level: With Assistance
Bedside Glucose Monitoring As Directed
Frequency: AC&HS
Immobilizer [Braces/Immobilizers] As Directed
Type of Brace/Immobilizer: Knee immobilizer
Instructions: Can use patient own if available
Vital Signs As Directed
Frequency: Per unit guidelines
Pulse Ox/spot Check [RESP] Routine
Quantity: 1
06/11/25 01:33
Gabapentin [Neurontin] 600 mg PO DAILYPRN PRN
06/11/25 01:45
Patient's Own Medication Pump See Dose Instructions IV DIRECTED
06/11/25 05:17
Basic Metabolic Panel IN AM
Complete Blood Count/No Diff IN AM
06/11/25 07:30
Insulin Aspart Corrective Low [Novolog Flexpen-Low Resistance] See Protocol SC AC
06/11/25 08:00
Apixaban [Eliquis] 5 mg PO BID
Aspirin Low Dose EC [Aspir Low (Enteric Coated)] 81 mg PO DAILY
Dapagliflozin [Farxiga] 10 mg PO DAILY
Dofetilide [Tikosyn] 250 mcg PO BID
Fluoxetine HCl [Prozac] 20 mg PO DAILY
ISOSORBIDE MONOnitrate ER [Imdur (Extended Release)] 120 mg PO DAILY
METFORMIN HCl [Glucophage] 1,000 mg PO BID
Metoprolol Xl [Toprol Xl] 25 mg PO DAILY
Pantoprazole [Protonix] 40 mg PO BID
06/11/25 18:00
Rosuvastatin Calcium [Crestor] 40 mg PO QPM
06/12/25 08:00
Roflumilast [Daliresp] 500 mcg PO MOWEFR
Abnormal Lab Results
06/10/25
22:00
RBC 3.92 L 10^6/uL
(4.70-6.10)
Hgb 10.8 L g/dL
(13.0-18.0)
Hct 33.3 L %
(39.0-52.0)
MCHC 32.4 L g/dL
(33.0-37.0)
RDW 18.3 H %
(11.5-14.5)
Plt Count 559 H 10^3/uL
(130-400)
ESR 100 H mm/hour
(0-20)
PT 16.3 H Sec
(11.4-14.6)
APTT 37.6 H Sec
(23.4-35.0)
Sodium 132 L mmol/L
(135-145)
Glucose 133 H mg/dl
(70-99)
AST 16 L U/L
(17-59)
C-Reactive Protein 71.30 H mg/L
(0.0-10.00)
06/10/25 22:00
06/10/25 22:00
Vital Signs
Initial and Last Documented VS:
Initial Vital Signs
Temp Pulse Resp BP Pulse Ox
97.6 F 84 22 76/46 98
06/10/25 20:09 06/10/25 20:09 06/10/25 20:09 06/10/25 20:09 06/10/25 20:09
Last Documented Vital Signs
Temp Pulse Resp BP Pulse Ox
98.3 F 63 17 124/56 95
06/11/25 11:29 06/11/25 11:29 06/11/25 11:29 06/11/25 11:29 06/11/25 11:29
*Pulse Oximetry
SaO2: 99
Oxygen Mode of Delivery: Room air
Patient hypoxic: no
*Critical Care Note
Total Time (30-74mins, 75-104mins- exclusive of procedures): 30 (Critical care statement: A total of 30 minutes of critical care time was provided for this patient. This time is separate from time utilized to perform the aforementioned documented
procedures. Aggregate critical care time includes only time during which I was engaged in work directl)
ED Attending Note
-
Portions of this chart may have been created with voice recognition software.� Occasional wrong word or��sound alike� substitutions may have occurred due to the inherent limitations of voice recognition software.
Discharge Plan
Departure
Patient Disposition: Admit
Date of Disposition: 06/10/25
Time of Disposition: 23:32
Admit to: Med/Surg
Presentation/result/management discussed w/ accepting MD/DO: Hospitalist
Discharge Problem:
Encounter for wound care, Encounter for pain management
Interventions
Interventions:
*Risk Screen - Suicide Last Done: 06/10/25 20:09
*General Assessment Last Done: 06/10/25 20:09
*Neglect/Abuse Screening Last Done: 06/10/25 20:09
*ED- Fall Risk Assessment Last Done: 06/10/25 20:25
*ED COVID-19 Vaccine History Last Done: 06/10/25 20:25
*Nursing Disposition Last Done: 06/11/25 01:31
ED-Skin Assessment Last Done: 06/10/25 20:52
Discharge Date and Time
Discharge Date/Time: 06/11/25 01:33
[2025-06-11 00:08] VITALS: BP 111/56
[2025-06-11 01:00] VITALS: BP 102/86
[2025-06-11 01:30] VITALS: BMI 22.2
[2025-06-11 01:31] VITALS: BP 102/86
[2025-06-11 01:37] VITALS: BP 140/61; BMI 22.2
[2025-06-11] MEDS: ROXICODONE 5 MG PO ×2 (01:44→07:39)
[2025-06-11 01:46] VITALS: BMI 22.2
[2025-06-11] MEDS: DILAUDID 1 MG IV ×3 (02:47→09:22)
[2025-06-11] MEDS: FLUSH (NSS) 4 FLUSH IV (02:47)
--- NOTE | 2025-06-11 03:08 | PTCARENOTE ---
ax3 afebrile- came from home with picc and his own abx with continuos infusion through rt picc. rt left reg swollen and extreme pain. medicated with prn pain meds see mar
[2025-06-11] MEDS: DILAUDID 0.5 MG IV (05:08)
--- NOTE | 2025-06-11 05:15 | PTCARENOTE ---
pt in sevre 08/04 pain in affected knee- too ealry for prn dilaudid- supervisor backfilling orderd stat dose see mar
[2025-06-11 05:29] LABS: Hematocrit 29.4 % (39.0-52.0); Hemoglobin 9.5 g/dL (13.0-18.0); Mean Corp Hgb Conc. 32.3 g/dL (33.0-37.0); Mean Corpuscular Volume 84.5 fL (80.0-94.0); Platelet Count 497 10^3/uL (130-400); Red Cell Dist. Width 18.1 % (11.5-14.5)
[2025-06-11 05:50] LABS: Blood Urea Nitrogen 14 mg/dl (9-20); Calcium 9.3 mg/dl (8.4-10.2); Carbon Dioxide 23 mmol/L (22-30); Chloride 103 mmol/L (98-107); Estimated Creatinine Clearance 89 ml/min; Glucose 108 mg/dl (70-99); Potassium 4.2 mmol/L (3.5-5.1); Sodium 131 mmol/L (135-145); eGFR > 60.00
[2025-06-11 07:03] LABS: Glucose - Point of Care 106 mg/dl (70-99)
[2025-06-11] MEDS: ASPIR LOW (ENTERIC COATED) 81 MG PO (07:30)
[2025-06-11] MEDS: TOPROL XL 25 MG PO (07:30)
[2025-06-11] MEDS: FARXIGA 10 MG PO (07:30)
[2025-06-11] MEDS: PROTONIX 40 MG PO (07:30)
[2025-06-11] MEDS: IMDUR (EXTENDED RELEASE) 120 MG PO (07:30)
[2025-06-11] MEDS: TIKOSYN 250 MCG PO (07:31)
[2025-06-11] MEDS: GLUCOPHAGE 1000 MG PO (07:33)
[2025-06-11] MEDS: ELIQUIS 5 MG PO (07:33)
[2025-06-11] MEDS: SYMBICORT 160/4.5 MCG INHALER 2 PUFF INH (07:34)
[2025-06-11] MEDS: PROZAC 20 MG PO (07:34)
[2025-06-11] MEDS: SPIRIVA RESPIMAT 2.5 MCG 2 PUFF INH (07:34)
[2025-06-11 07:36] VITALS: BP 111/56
[2025-06-11] MEDS: NEURONTIN 600 MG PO (07:40)
--- NOTE | 2025-06-11 08:16 | VATNOTE ---
Addendum entered by Reena Mccabe RN 06/11/25 08:20:
CXR reviewed, catheter is in good position going down. OK to use as has not migrated from original placement. PCN aware.
Original Note:
VAT rounds: Pt R arm 5 fr double lumen PICC placed per patient approximately 3 weeks ago. Dressing was last changed 06/05 without a biopatch. Per patient, his continuous infusion was started by his infusion nurse yesterday evening. Dressing changed
and biopatched placed per protocol. Caps unchanged at this time d/t continuous infusion.
[2025-06-11 11:17] LABS: Glucose - Point of Care 154 mg/dl (70-99)
--- NOTE | 2025-06-11 11:19 | CON.ID ---
Consultation
-
Date/Time Consultation Requested: 06/11/2025 0124
Date/Time Consultation Performed: 06/11/2025 1100
Requesting Provider: Dr. Salvador
Performing Provider: Dr. Walsh
Reason for Consultation: Right knee infection
Chief Complaint / Past History
History of Present Illness
Ismael Cervantes is a 69-year-old man being evaluated in infectious ease consultation at the request of Dr. Salvador regarding a right knee infection. History is obtained from chart review, along with patient interview.
The patient reports that on 03/07/2025 he underwent a right knee replacement at [facility]. He notes that approximately 6 weeks later (late March) he was found to have an infection and underwent washout. At that point in time he was
placed on nafcillin 8 gm/day via continuous infusion. He has remained on nafcillin through the present (~8 weeks at this time). According to reviewed notes, approximately 3 weeks ago he had further evaluation of the wound which was nonhealing and
he was told he needed reconstructive surgery. It appears he may have had additional surgery with the removal of prior joint and placement of a spacer, although this is not clear.
Yesterday he presented to the emergency room here as he states that he was having increasing pain of the knee, and the knee wound was growing worse. He notes that it appears there may have been some green drainage.
At this point, he denies any fevers, he notes ongoing pain. He is currently still connected to his outpatient elastomeric antibiotic pump.
Past History
Additional Past Medical History:
Bilateral carotid artery stenosis.
Dyslipidemia
Depression
CKD stage IIIa
COPD
HTN
DM type II
GERD
Additional Past Surgical History:
Left knee replacement
Right knee replacement (03/07/2025)
Bilateral carotid stents
Hernia repair
Allergy History:
simvastatin (From Zocor) Allergy (Verified 04/07/24 22:54)
muscle cramps
hydromorphone HCl (From Dilaudid) Adverse Reaction (Verified 04/07/24 22:54)
ONLY NAUSEA, HAS HAD IT SINCE [place]
Medications Reviewed: Yes
Current Antibiotics:
Nafcillin 8 gm /day via continuous infusion
- Rx by Phil Grady MD ([phone]). End Date: 07/02/2025
- Infusion Company : [employer]
Social History
Tobacco: Former Smoker
Alcohol: Occasional
Drug: None
Personal:
Living: With Family
Employment: Retired
Family History
Family History: Not Pertinent
Review of Systems
Vital Signs
Temp Pulse Resp BP Pulse Ox
98.2 F 73 18 111/56 96
06/11/25 07:36 06/11/25 07:38 06/11/25 07:38 06/11/25 07:36 06/11/25 07:38
Physical Exam
Physical Exam
Constitutional: No Acute Distress, Comfortable and Non-toxic
Eyes: No Conjunctival Hemorrhage and Sclera Anicteric
Oral: No Thrush and No Ulcers
Cardiovascular: Regular Rate and S1/S2; Negative S3/S4
Pulmonary: Clear; Negative Wheezes, Rales or Rhonchi
Gastrointestinal: Soft, Non Tender and Non Distended
Genito-Urinary: Negative Gutierrez
Extremities: Erythema (Right knee area)
Musculoskeletal: Joint Swelling (Right knee)
Wound: Other (Right knee with multiple wounds. Please see attached photos)
Neurological: Awake and Alert
Psychological: Calm
Lines: PICC (Right upper extremity)
Lab / Diagnostic Study Results
06/11/25 05:17
06/11/25 05:17
Abs Immat Gran (auto) 0.0 10^3/uL (0-0.05) 06/10/25 22:00
Absolute Neuts (auto) 4.8 10^3/uL (1.4-6.5) 06/10/25 22:00
Absolute Lymphs (auto) 1.5 10^3/uL (1.2-3.4) 06/10/25 22:00
Absolute Monos (auto) 0.6 10^3/uL (0.1-0.6) 06/10/25 22:00
Absolute Basos (auto) 0.1 10^3/uL (0-0.2) 06/10/25 22:00
Immature Gran % 0.3 % (0-0.5) 06/10/25 22:00
Neutrophils % 66.9 % (42.2-75.2) 06/10/25 22:00
Lymphocytes % 20.9 % (20.5-51.1) 06/10/25 22:00
Monocytes % 8.7 % (1.7-9.3) 06/10/25 22:00
Eosinophils % 2.4 % (0-6) 06/10/25 22:00
Basophils % 0.8 % (0-2) 06/10/25 22:00
ESR 100 mm/hour (0-20) H 06/10/25 22:00
PT 16.3 Sec (11.4-14.6) H 06/10/25 22:00
INR 1.28 06/10/25 22:00
Lactic Acid Cancelled 06/11/25 01:45
C-Reactive Protein 71.30 mg/L (0.0-10.00) H 06/10/25 22:00
Microbiology Results
Micro:
06/11/25 07:57 MRSA Screen - Pending
Nose
06/10/25 22:00 Blood Culture - Pending
Blood/Venous
06/10/25 22:00 Blood Culture - Pending
Blood/Venous
Right Knee
Assessment / Plan
Right knee infection
Right knee wound
Thrombocytosis
Elevated ESR
Elevated CRP
Bilateral carotid artery stenosis. Dyslipidemia
Depression
CKD stage IIIa
COPD
HTN
DM type II
GERD
Recommendations:
At present, this appears to be a very complicated case.
Will continue with current course of nafcillin.
Will attempt to obtain records from [facility] regarding prior treatment,, including cultures to guide further antimicrobial therapy.
Continue with local wound care.
Likely will require transfer to tertiary care center for further orthopedic care.
Care Review
Plan reviewed with: Physician (Hospitalist)
.

Total time spent today was 90 minutes, which includes preparation for the visit, including review of pre-visit forms and results, patient interview and examination, reviewing pertinent studies, including laboratory results, microbiology results,
radiology studies, hospital records, specialist consultation, along with patient/caregiver counseling, documentation of clinical information and coordination of care with other healthcare professionals.
[2025-06-11 11:29] VITALS: BP 124/56
--- NOTE | 2025-06-11 11:51 | W.PN.HOSP.TC ---
Addendum entered and electronically signed by Carlos Baig MD 06/11/25 14:20:
[id number]
Addendum entered and electronically signed by Carlos Baig MD 06/11/25 13:09:
After discussion with family, patient is leaving AMA
Original Note:
Today's Communication/Plan
-
abx
awaiting family decision on tx
Assessment / Plan
Assessment / Plan
Physical Exam
General: Well Developed, Well Nourished and No Apparent Distress
HEENT: NormoCephalic, Moist mucous membranes and Atraumatic
Respiratory: Clear
Cardiac: Irregular Rhythm and Tachycardia; No Murmur or Rub
GI: Soft, Non Tender, Non Distended and Normal Bowel Sounds; No Organomegaly
Rectal: Deferred by Provider
Musculoskeletal: No Clubbing, No Cyanosis, No Edema and Other (Right knee dehiscence wound, deep ulceration without significant drainage. Surrounding erythema. No obvious cellulitis. )
Neuro: AO x 3 and Nonfocal/grossly intact
Psych: Calm
Wound -chronic nonhealing wound.
-Spoke to Orthopedics - Our orthopedic department has nothing to add, and was recommending to be seen by either prior performing surgeon or at [place]. Ortho strongly recommended not admitting the patient as our interventions would be limiting.
-Discussed this with family
-Cont abx
-Decision for transfer to [place] - still awaiting confirmation by family
- pain control
- continue IV Abx - once confirmed dosing
- ID consultation
- wound consultation
DM II
- continue metformin for now
-resume lantus
- sliding scale insulin
- off glimepiride
AFIB - stable
- continue dofetilide, metoprolol and eliquis
Hyponatremia
-mild
-monitor
-appears euvolemic
COPD
continue trelegy and prn nebs
CAD - h/o CAD s/p CABG and stents.
- continue asa 81 and eliquis
- imdur
DVT PPX - on eliquis
Code status - Full Code
More than 30 minutes spent in discharge including
Final examination of the patient
Summarizing hospital stay
Instructions for continuing care to all relevant caregivers
Preparation of discharge records, prescriptions, and referral forms
Total time spent (in minutes): 51
Anticipated Discharge: Today
Subjective/Interval History
-
Date of Service: June 11, 2025
in pain, no other acute events
Objective Data
-
Labs:
Laboratory Results
06/11/25
05:17
WBC 6.5
Hgb 9.5 L
Hct 29.4 L
Plt Count 497 H
Sodium 131 L
Potassium 4.2
Chloride 103
Carbon Dioxide 23
BUN 14
Creatinine 0.8
Glucose 108 H
Calcium 9.3
Vital Signs:
Vital Signs
Temp Pulse Resp BP Pulse Ox
98.3 F 63 17 124/56 95
06/11/25 11:29 06/11/25 11:29 06/11/25 11:29 06/11/25 11:29 06/11/25 11:29
I&O
06/10/25 06/11/25 06/12/25
06:59 06:59 06:59
Intake Total 120 / 120
Output Total 300 / 300
Balance -180 / -180
Review of Systems
-
History Source: Patient
All other systems: Not reviewed unless documented
Data Reviewed
-
Diagnostic Radiology: Report Reviewed by me
Labs: Labs Reviewed by me
--- NOTE | 2025-06-11 13:10 | W.DS.TRANS ---
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
-
Discharge Instructions:
Discharge Diagnosis/Procedures right knee infection
Instructions:
Stand-Alone Forms:
Changes to Home Medications: Yes
Discharge Medications:
DC Medications w/original date entered in [facility]
pantoprazole 40 mg tablet,delayed release (Protonix) 40 mg PO BID GERD 09/26/14
fluoxetine 20 mg capsule 20 mg PO DAILY Mental Health/Anxiety 08/09/21
nitroglycerin 0.4 mg sublingual tablet 0.4 mg sublingual [id number] PRN chest pain ##75 08/09/21
empagliflozin 10 mg tablet (Jardiance) 10 mg PO DAILY #30 tabs 11/14/22
isosorbide mononitrate 120 mg tablet,extended release 24 hr 120 mg PO DAILY Heart Disease/Condition 05/20/23
metformin 1,000 mg tablet 1,000 mg PO BID Diabetes 05/20/23
multivitamin 1 tab PO DAILY Supplement 05/20/23
calcium carbonate (Tums) 200 mg PO BIDPRN PRN gerd 02/04/24
furosemide 40 mg tablet 40 mg PO DAILY Fluid Retention/Swelling 02/04/24
gabapentin 600 mg tablet 600 mg PO DAILYPRN PRN mild pain 02/04/24
glimepiride 2 mg tablet 2 mg PO QPM Diabetes 02/04/24
insulin glargine 100 unit/mL (3 mL) subcutaneous pen (Johnnyaglar Lukasz U-100 Insulin) 50 unit SC HS Diabetes 02/04/24
sucralfate 1 gram tablet (Carafate) 1 g PO BID Gastrointestinal Issue 02/04/24
metoprolol succinate 25 mg tablet,extended release 24 hr 25 mg PO DAILY #30 tabs 02/05/24
apixaban 5 mg tablet (Eliquis) 5 mg PO BID #60 tabs 02/26/24
aspirin 81 mg tablet,delayed release 81 mg PO DAILY Blood Clot Prevention/Tx 02/29/24
omega 1-jdo-ntw-fish oil 1,000 mg (120 mg-180 mg) capsule (Fish Oil) 1 cap PO BID Supplement 02/29/24
rosuvastatin 40 mg tablet 40 mg PO QPM High Cholesterol 02/29/24
acetaminophen 325 mg tablet (Tylenol) 650 mg PO Q4HPRN PRN mild pain 04/04/24
dofetilide 250 mcg capsule 250 mcg PO BID 04/04/24
fluticasone fur. 200 mcg-umeclid 62.5 mcg-vilant 25 mcg inhalat.powder (Trelegy Ellipta) 1 inh inhalation R DAILY 04/04/24
ipratropium 0.5 mg-albuterol 3 mg (2.5 mg base)/3 mL nebulization soln 3 ml inhalation R Q6HPRN PRN sob/wheezing 04/04/24
roflumilast 500 mcg tablet 500 mcg PO MOWEFR 04/04/24
Home Medication Changes
na
Pending Results: No
--- NOTE | 2025-06-11 14:21 | CM ---
Patient left AMA today
== END 2025-06-11 14:17 | disposition left against medical advice (07) | DRG 560 ==
LOC: 2 NORTH 23:43
PROVIDERS: ADMITTING PHYSICIAN Internal Medicine; ATTENDING PHYSICIAN Internal Medicine; CONSULT PHYSICIAN Internal Medicine Infectious Disease; EMERGENCY PHYSICIAN Student in an Organized Health Care Education/Training Program; FAMILY PHYSICIAN Internal Medicine
DX: T84.53XA Infection and inflammatory reaction due to internal right knee prosthesis, initial encounter (principal); T81.30XA Disruption of wound, unspecified, initial encounter; Y79.2 Prosthetic and other implants, materials and accessory orthopedic devices associated with adverse incidents; N18.31 Chronic kidney disease, stage 3a; E11.22 Type 2 diabetes mellitus with diabetic chronic kidney disease; I25.10 Atherosclerotic heart disease of native coronary artery without angina pectoris; Z86.73 Personal history of transient ischemic attack (TIA), and cerebral infarction without residual deficits; I48.0 Paroxysmal atrial fibrillation; Z79.01 Long term (current) use of anticoagulants; E11.51 Type 2 diabetes mellitus with diabetic peripheral angiopathy without gangrene; Z96.653 Presence of artificial knee joint, bilateral; F32.A Depression, unspecified; J44.9 Chronic obstructive pulmonary disease, unspecified; K21.9 Gastro-esophageal reflux disease without esophagitis; Z87.891 Personal history of nicotine dependence; Z95.5 Presence of coronary angioplasty implant and graft; I12.9 Hypertensive chronic kidney disease with stage 1 through stage 4 chronic kidney disease, or unspecified chronic kidney disease; E78.00 Pure hypercholesterolemia, unspecified; Z53.29 Procedure and treatment not carried out because of patient's decision for other reasons; Z79.4 Long term (current) use of insulin; Z79.84 Long term (current) use of oral hypoglycemic drugs; Z95.1 Presence of aortocoronary bypass graft
CPT/HCPCS: 71045; 73564; 80048; 80053; 82962; 83605; 85025; 85027; 85610; 85652; 85730; 86140; 87040; 87070; 94640; 96374; 96376; 99291